=== PATIENT | male | born 1940 | race Caucasian/White ===

== ENCOUNTER 2016-07-18 13:38 | Inpatient (IN) | payer MEDICARE ==
[2016-07-18 14:32] LABS: Hematocrit 31 % (42-52); Hemoglobin 10.4 g/dl (14.0-18.0); Mean Corpuscular HGB Conc 34 g/dl (31-36); Mean Corpuscular Hemoglobin 34 pg (27-31); Mean Corpuscular Volume 100 fL (80-94); Mean Platelet Volume 9 um3 (7.4-10.4); Red Blood Count 3.05 10^6/ul (4.0-5.4); Red Cell Distribution Width 20 % (10.5-15); White Blood Count 3.9 10^3/ul (3.5-10.8)
[2016-07-18 14:41] LABS: Comments Flag Yes
[2016-07-18 14:43] LABS: Add Diff/Slide Review? Slide Review Added
[2016-07-18 14:48] LABS: ALT 77 U/L (7-52); AST 88 U/L (13-39); Albumin 2.3 g/dL (3.2-5.2); Alkaline Phosphatase 165 U/L (34-104); Anion Gap 7 mmol/L (2-11); BUN/Creatinine Ratio 9.3 (8-20); Blood Urea Nitrogen 41 mg/dL (6-24); CO2 Carbon Dioxide 26 mmol/L (22-32); Calcium 8.9 mg/dL (8.6-10.3); Chloride 105 mmol/L (101-111); Creatine Kinase 465 U/L (10-223); EGFR African American 16.9 (>60); EGFR Non-African American 13.1 (>60); Globulin 4.9 g/dL (2-4); Glucose 108 mg/dL (70-100); Magnesium 1.7 mg/dL (1.9-2.7); Potassium 3.3 mmol/L (3.5-5.0); Sodium 138 mmol/L (133-145); Total Protein 7.2 g/dL (6.4-8.9)
[2016-07-18 14:52] LABS: Troponin I 0.13 ng/mL (<0.04)
[2016-07-18] MEDS ORDERED: LORazepam INJ* 2 MG/ML 1 ML VIAL IV PUSH ONE (14:58)
--- NOTE | 2016-07-18 15:05 | RAD ---
INDICATION: Altered mental status COMPARISON: Chest x-ray 2 2009 TECHNIQUE: A seated AP portable view obtained at 1440 hours is submitted. FINDINGS: Bones/Soft Tissues: There are no acute bony findings. Cardiomediastinal: The cardiomediastinal silhouette is normal allowing for depth of inspiration.. Lungs: Expiratory image with vascular crowding. No definite infiltrates.. Pleura: There are no pleural effusions. Other: None IMPRESSION: EXPIRATORY EXAMINATION. NO ACTIVE DISEASE.
[2016-07-18 15:06] LABS: Alcohol < 10 mg/dL (<10)
[2016-07-18 15:08] LABS: Add Path Review? YES; Hypochromasia 1+; Target Cells 2+
--- NOTE | 2016-07-18 15:12 | RAD ---
Indication: Confusion. CT of the brain was performed without IV contrast. Ventricular structures are midline. No midline shift is noted. The extra-axial spaces are unremarkable. There is no evidence of intracranial mass or hemorrhage. No other high or low density lesions are identified. Mastoid air cells and paranasal sinuses are otherwise unremarkable. IMPRESSION: There is no evidence of intracranial mass or hemorrhage noted.
[2016-07-18 15:14] LABS: TSH (Thyroid Stimulating Horm) 1.34 mcIU/mL (0.34-5.60)
[2016-07-18 15:39] LABS: Urine Bilirubin Negative (Negative); Urine Glucose Negative (Negative); Urine Nitrite Negative (Negative)
[2016-07-18] MEDS ORDERED: Magnesium Sulfate 2 GM IV* 2 GM/50 ML BAG IVPB ONE (15:40)
[2016-07-18] MEDS ORDERED: KCL 20 MEQ/100 ML IVPREMIX* 20 MEQ/100 ML BAG IV ONE (15:41)
[2016-07-18] MEDS ORDERED: Potassium Chlor TAB* 20 MEQ TAB.ER PO ONE (15:41)
--- NOTE | 2016-07-18 15:45 | ED ---
Santos Van Adam, scribed for Carlos Hummel MD on 07/18/16 at 1358 . Complex/Multi-Sys Presentation - HPI Summary HPI Summary: Pt is a 76 year old male presenting with lethargy, confusion, and vomiting. The pt's family states that he began having liver problems in January 2016 with worsening lab levels. Yesterday a liver biopsy was done and 4 lbs of fluid were drained from the pt's abdomen. His family states that he has been having worsening edema of his lower extremities and abdomen. Last night the pt began to have nausea and vomiting. This morning his family grew increasingly concerned about the pt's lethargy and weakness, stating that he dropped a can of soda. They also state that he is more confused than usual. His last episode of vomiting was at 11:00. No diarrhea. PMHx includes HTN (controlled lately), skin cancer removal from face, and prostatectomy. Pt is a former smoker. He drinks alcohol occasionally (last on 05/18/16). - History Of Current Complaint Time Seen by Provider: 07/18/16 13:53 Hx Obtained From: Patient, Family/Awning Installer Onset/Duration: Gradual Onset, Lasting Days, Still Present Timing: Constant Severity Currently: Moderate Severity Initially: Moderate Aggravating Factor(s): Unknown Alleviating Factor(s): Nothing Associated Signs And Symptoms: Positive: Confusion, Edema - Lower extremities and abdomen, Nausea, Vomiting, Other - Lethargy - Allergies/Home Medications Allergies/Adverse Reactions: Allergies Allergy/AdvReac Type Severity Reaction Status Date / Time No Known Allergies Allergy Verified 07/17/16 11:19 PMH/Surg Hx/FS Hx/Imm Hx Cardiovascular History: Reports: Hx Hypertension - Cancer History Cancer Type, Location and Year: PROSTATE, SKIN - Surgical History Surgery Procedure, Year, and Place: HERNIA, PROSTATECTOMY - Family History Known Family History: Positive: Hypertension, Other - Cancer - Social History Occupation: Employed Part-time Lives: With Family - Domestic partner female Alcohol Use: Occasionally Hx Tobacco Use: Yes Smoking Status (MU): Former Smoker Review of Systems Positive: Other - Lethargic Positive: Vomiting, Nausea. Negative: Diarrhea Positive: Edema - Lower extremities, abdomen Neurological: Other - Confused All Other Systems Reviewed And Are Negative: Yes Physical Exam - Summary Physical Exam Summary: VITAL SIGNS: Reviewed. GENERAL: Patient is a well developed and nourished male who is lying comfortable in the stretcher. he seems very lethargic an slow answering a question. Patient is not in any acute respiratory distress. HEAD AND FACE: No signs of trauma. No ecchymosis, hematomas or skull depressions. EYES: PERRLA, EOMI x 2, No injected conjunctiva, no nystagmus. No photophobia. EARS: Hearing grossly intact. Ear canals and tympanic membranes are within normal limits. MOUTH: Dry oral mucosa NECK: Supple, trachea is midline, no adenopathy, no JVD, no carotid bruit, no neck hematomas. Positive carotid pulses. CHEST: Symmetric, no tenderness at palpation LUNGS: Clear to auscultation bilaterally. No wheezing or crackles. CVS: Regular rate and rhythm, S1 and S2 present, no murmurs or gallops appreciated. ABDOMEN: Soft, non-tender. No rebound no guarding, and no masses palpated. Bowel sounds are normal. EXTREMITIES: FROM in all major joints, 1+ edema NEURO: Alert but not oriented. . SKIN: Dry and warm Triage Information Reviewed: Yes Vital Signs On Initial Exam: Initial Vitals Temp Pulse Resp BP Pulse Ox 98.5 F 78 18 165/80 95 07/18/16 13:51 07/18/16 13:51 07/18/16 13:51 07/18/16 13:51 07/18/16 13:51 Vital Signs Reviewed: Yes Diagnostics - Vital Signs Vital Signs Temp Pulse Resp BP Pulse Ox 07/18/16 13:51 98.5 F 78 18 165/80 95 - Laboratory Result Diagrams: 07/18/16 14:10 07/18/16 14:10 Lab Statement: Any lab studies that have been ordered have been reviewed, and results considered in the medical decision making process. - Radiology CXR Radiology Interpretation Completed By: Radiologist - IMPRESSION: EXPIRATORY EXAMINATION. NO ACTIVE DISEASE. - CT BRAIN CT Interpretation Completed By: Radiologist - IMPRESSION: There is no evidence of intracranial mass or hemorrhage noted. - EKG 13:45 Cardiac Rate: NL - 77 BPM EKG Rhythm: Sinus Rhythm Ectopy: PVCs - Occasional EKG Interpretation: No STEMI - Additional Comments Diagnostic Additional Comments: Lactic Acid - 2.1 Troponin I - 0.13 Complex Multi-Symp Course/Dx Course Of Treatment: Pt is a 76 year old male presenting with lethargy, confusion, and vomiting. The pt's family states that he began having liver problems in January 2016 with worsening lab levels. Yesterday a liver biopsy was done and 4 lbs of fluid were drained from the pt's abdomen. His family states that he has been having worsening edema of his lower extremities and abdomen. Last night the pt began to have nausea and vomiting. This morning his family grew increasingly concerned about the pt's lethargy and weakness, stating that he dropped a can of soda. They also state that he is more confused than usual. His last episode of vomiting was at 11:00. No diarrhea. PMHx includes HTN (controlled lately), skin cancer removal from face, and prostatectomy. Pt is a former smoker. He drinks alcohol occasionally (last on ). Blood work shows a chronic normochromic normocytic anemia, K+ 3.3, Acute on Chronic RF, Increased LFTs consisting with his liver cirrhosis. Ammonia level 116 possible the cause of the AMS. Troponin is 0.13 and will r/o an ACS. He will be started on Lactulose for his Hepatic Encephalopathy. He will also be given Gentle IV fluids. Patient is becoming agitated therefore he was given Ativan 1 mg IV. CXR impression No active disease. Head CT impression: No acute intracranial pathology. EKG with Sinus rhythm w/o MUNA. I discuss my physical exam, findings and test results with Dr. Atkinson from the hospitalist services and she agrees to admit patient to his services. Patient is hemodynamically stable alert and not oriented. - Diagnoses Differential Diagnoses/HQI/PQRI: Aspiration, CVA, Urinary Tract Infection Provider Diagnoses: Hepatic encephalopathy, Acute on chronic renal insufficiency, Elevated troponin , rule out NSTEMI - Physician Notifications Discussed Care Of Patient With: Dr. Atkinson at 15:10. Patient will be admitted. Discharge - Discharge Plan Condition: Stable Disposition: ADMITTED TO [facility] Referrals: Srinivas Nowak MD [Primary Care Provider] - The documentation as recorded by the Santos awan Adam accurately reflects the service I personally performed and the decisions made by me, Carlos Hummel MD.
[2016-07-18] MEDS ORDERED: Lactulose 300 ML for PR* 10 GM/15 ML BTL PR SCH (17:00)
[2016-07-18] MEDS ORDERED: Lactulose 300 ML for PR* 10 GM/15 ML BTL PR PRN (17:00)
[2016-07-18] MEDS: NS 0.9% 1000 ML* 1,000 ML IV SCH (17:19)
--- NOTE | 2016-07-18 20:28 | HP ---
HISTORY AND PHYSICAL: ADDENDUM: DATE OF ADMISSION: 07/18/16 HISTORY OF PRESENT ILLNESS: Justus Lozano is a 76-year-old male who has recently diagnosed li iam cirrhosis and underwent transjugular liver biopsy performed by Dr. Borja yesterday. Today, the patient presents with altered mental status and he is noted to have hepatic encephalopathy with a m arkedly elevated ammonia level. He also has had nausea and vomiting and he has worsening of his chr onic kidney disease. The patient is going to be admitted with diagnosis of hepatic encephalopathy. He is going to be rehydrated. GI is going to be consulted. Further evaluation of his abdomen and pelvis is going to be performed as well as portal vein Dopplers to rule out portal vein thrombosis. For further details of the patient's presentation and plan, please see history and physical dictate d by Radha Diaz NP, on 07/18/16 with which I agree. [id number]/[facility] [place]: [id number]
--- NOTE | 2016-07-18 20:53 | CONS ---
CONSULTATION REPORT: DATE OF CONSULT: 07/18/16 REASON FOR CONSULT: Confusion, hepatic encephalopathy. NARRATIVE: Mr. Lozano is a 76-year-old gentleman with a remote history of prostate cancer, chronic renal insufficiency and cryptogenic cirrhosis, who in the last 24 hours has had reduced responsiveness, nausea, emesis and inappropriate behavior. The patient was noted to take on weight and had increased abdominal girth in the last several months. He was also noted to have abnormal liver function tests and dark colored urine. He had an evaluation , which included an ultrasound of the liver, which demonstrated a cirrhotic liver but no vascular clot, serologies for hepatitis B and C which were negative , negative ZA but a slightly positive smooth muscle antibody assay. To work up his liver disease, a transjugular liver biopsy was performed yesterday. He initially had about 2 L of acidic fluid removed that was described as yellow but not sent for studies. He then underwent uncomplicated transjugular biopsy. He was observed for a few hours and then discharged. According to his family who I did speak to, he felt well, acted appropriately till late in the night, early this morning when he had several rounds of nausea with emesis that was not bloody or coffee grounds. Today, he has been acting inappropriately, poorly responsive, unable to eat or drink. He, therefore, was brought to the emergency room where he was afebrile but had chemical evidence of hepatic encephalopathy with an ammonia level of 116. Other data include a creatinine of 4.4, which is about his baseline. Lactic acid of 2.1, sodium of 138, INR 2.18, total bilirubin 6.1, which again is about baseline. He is now being admitted. He has no prior history of hepatic encephalopathy. PAST MEDICAL HISTORY: Includes cryptogenic liver disease. Again, a liver biopsy from yesterday is still pending at this time. He has a history of chronic renal insufficiency as well as prostate cancer, which was treated in the past. MEDICATIONS: His medicines are only Bumex, which apparently was started about 2 weeks ago. REVIEW OF SYSTEMS: On review of systems, which was obtained from the patient's significant other, there has been no report of fevers, chills, GI bleeding, melena. According to his significant other, he was given a dose of Versed yesterday. PHYSICAL EXAM: He is a restless gentleman, icteric, poorly responsive. Temperature is 98.5, blood pressure is 165/80, heart rate is 78 and regular. He does have some scant telangiectasias over the face. There is no alvarez erythema. Lungs are clear. Cardiac exam reveals a regular rhythm without murmur. Abdomen is soft. There is a scab over the peritoneal tap site, which does not look infected or draining. The abdomen appears nontender. There is no obvious organomegaly. Extremities reveal 2+ edema. He is able to move all 4 extremities. LABORATORY DATA: Includes a brain CAT scan, which is unremarkable. An attempted CAT scan of the abdomen was unsuccessful due to the patient's motion. IMPRESSION AND PLAN: A 76-year-old gentleman with cryptogenic liver disease being worked up with liver biopsy and a paracentesis yesterday, presenting now with evidence of moderately severe hepatic encephalopathy. It may have been the large volume paracentesis coupled with the introduction of Bumex about a week or two ago that led to some relative dehydration that has precipitated hepatic encephalopathy. Although he just had a liver biopsy yesterday and concern for intraabdominal bleed is there, his baseline hematocrit and his lack of abdominal findings would speak against that. It would certainly be best to get imaging once he is more cooperative. Other possible precipitants would include peritonitis that might have followed a tap. He has no evidence of gastrointestinal bleeding. At this point, he will need lactulose and I would recommend through the NG route if possible. He has been written for lactulose enemas, which would be helpful but not as successful. I would encourage gentle hydration, given his renal insufficiency. Hopefully, we will be able to image his abdomen. If the etiology is unclear, then repeat tap to demonstrate any evidence of spontaneous bacterial peritonitis would be the next step. I will certainly follow the patient during this admission. CC: Dr. Nowak; Dr. Frey* [id number]/[facility] #: [id number] [facility]ICAL CENTERFransisco
[2016-07-18] MEDS: KCL 20 MEQ/100 ML IVPREMIX* 20 MEQ/100 ML BAG IV SCH ×2 (21:19→23:27)
--- NOTE | 2016-07-18 21:44 | HP ---
HISTORY AND PHYSICAL: DATE OF ADMISSION: 07/18/16 PRIMARY CARE PROVIDER: Dr. Srinivas Nowak. ATTENDING PHYSICIAN: Dr. Ava Atkinson* (dictated by Obi Bonner NP). CHIEF COMPLAINT: Altered mental status. HISTORY OF PRESENT ILLNESS: Mr. Oviedo is a 76-year-old male with past medical history significant for cirrhosis from unknown etiology, renal insufficiency, and hypertension, who presents to the emergency room with his family with complaints of lethargy, confusion, and vomiting. The patient is altered and will not answer questions at this time. All information for the history and physical are obtained from the patient's daughter, Kathryn, and significant other, Tyra. It is reported that the patient has been following with GI since complaining of increased fatigue and being found to have cirrhosis. The patient was last seen in June by Dr. Frey with Gastroenterology, who recommended the patient undergo a liver biopsy. At that time, the patient had a MELD score of 34 mostly due to the patient's underlying renal insufficiency. According to the family, the patient's liver issues developed in January of 2016. The patient has been experiencing lower extremity edema and abdominal distention and swelling. They state that the patient's kidney function worsened after receiving radiation therapy last year for prostate cancer. The patient's family reports that until the patient presented for liver biopsy yesterday that he had been acting in his normal state of health, not had any recent fevers, no complaints of chest pain. His only complaints recently have been extreme fatigue, shortness of breath that is worsened with exertion, and being "cold" all of the time. The family reports the patient had 2.2 L of fluid drained from his abdomen yesterday at the time of his liver biopsy. The patient's significant other states that the patient was vomiting all night and then this morning he seemed very lethargic and confused. While sitting in the recliner chair at home, he was incontinent of urine. Based off concern for the patient's change in mental status overnight, the patient was brought to the emergency room for further evaluation of his symptoms. While in the emergency room, the patient received some IV Ativan due to his restlessness. The patient had brain CT showing no acute findings. He had a chest x-ray showing no active disease. The patient had an EKG showing sinus rhythm. The patient had labs that were significant for hypokalemia with potassium of 3.3, hypomagnesium with magnesium of 1.7. The patient was also found to have an elevated troponin of 0.13. The patient's INR is elevated at 2.18, his AST is 88, ALT 77, bilirubin 6.10, alk phos 165, ammonia 116, CK 465. The patient does not have any leukocytosis. Hospitalists were asked to evaluate the patient for admission for hepatic encephalopathy. PAST MEDICAL HISTORY: 1. Cirrhosis, unknown etiology. 2. Renal insufficiency. 3. Hypertension. 4. Basal cell carcinoma on the face. PAST SURGICAL HISTORY: 1. Status post radical prostatectomy in 2002. 2. Status post hernia repairs x2. 3. Status post bilateral knee replacement. 4. Status post excision of basal cell carcinoma on the face. HOME MEDICATIONS: Include: 1. Bumex 1 mg oral daily. 2. Omeprazole 40 mg oral daily. ALLERGIES: No known drug allergies. FAMILY HISTORY: The patient's mother had a history of coronary artery bypass graft and neck tumor. The patient's father had a history of colorectal cancer. Family denies any history of diabetes mellitus. SOCIAL HISTORY: The patient is a former smoker. He quit smoking approximately 40 years ago. The patient used to drink 1 to 2 beers daily but he has not had a drink since . 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 The patient lives with Tyra Fuentes, his significant other, and his daughter, Kathryn, will be his surrogate decision maker in the event he is unable to make decisions for himself. REVIEW OF SYSTEMS: I performed a 14-point review of systems. All the pertinent positives and negatives are mentioned in the history of present illness. The remaining review of systems is negative. PHYSICAL EXAMINATION GENERAL APPEARANCE: The patient is lethargic and disoriented and restless on the stretcher. He does not appear to be in any acute distress. VITAL SIGNS: Temperature 98.5, heart rate 78, respiratory rate 18, O2 sat 95% on 2 L via nasal cannula, blood pressure 165/80. HEENT: Normocephalic, atraumatic. Pupils are equal and reactive to light. Extraocular movements were intact. The patient does have slight bilateral scleral icterus. NECK: Supple. There is no lymphadenopathy noted. RESPIRATORY: There is no accessory muscle use and the lungs are clear to auscultation bilateral. CARDIOVASCULAR: Regular rate and rhythm. S1 and S2 are present. There are no murmurs, rubs, or gallops heard. ABDOMEN: Soft, nontender, nondistended. There are bowel sounds present x4. EXTREMITIES: There is 1 to 2+ bilateral lower extremity edema. DP and PT pulses are 2+ and symmetric. MUSCULOSKELETAL: There is no clubbing or cyanosis noted. NEUROLOGIC: The patient is slightly lethargic and confused. He is able to follow a few commands but is not answering questions at this time. PSYCHOLOGIC: The patient is restless and nonverbal at this time. SKIN: There are no rashes or abnormalities seen. The patient does have some generalized edema to his hips and thighs in addition to his lower extremity edema. The patient has a dressing to his right neck from his liver biopsy yesterday that is clean, dry, and intact with no signs of hematoma at the site. DIAGNOSTIC STUDIES/LAB DATA: Sodium 135, potassium 3.3, chloride 105, CO2 26, BUN 41, creatinine 4.40, glucose 108. White blood cell count 3.9, hemoglobin 10.4, hematocrit 31, and platelet count 74. INR 2.18. Lactic acid 2.1. Troponin 0.13. AST 88, ALT 77, bilirubin 6.10, alk phos 165, ammonia 116, and CK 465. Urinalysis negative. EKG shows sinus rhythm with rate of 77 and few PVCs. This EKG is similar to previous EKG from 04/23/11. Chest x-ray from today. Radiologist's impression: Expiratory exam. No active disease. Brain CT from today. Radiologist's impression: There is no evidence of intracranial mass or hemorrhage noted. IMPRESSION: Mr. Oviedo is a 76-year-old man with past medical history significant for cirrhosis of unknown etiology, renal insufficiency, and hypertension, who presented to the emergency room today with concern for altered mental status. He will be admitted as an inpatient for hepatic encephalopathy. ASSESSMENT AND PLAN: 1. Hepatic encephalopathy. At this time, we will try to get a liver ultrasound to rule out a portal vein thrombosis. We will also check a CT scan of the patient's abdomen to rule out hematoma after his liver biopsy yesterday. The patient's ammonia is elevated. He will receive lactulose. If he is unable to take oral lactulose, we will place a NG tube and give him lactulose via NG tube. I have asked Dr. Man with Gastroenterology to consult on the patient, and he will see him this evening. At this time, infection does not appear to be the cause of the patient's encephalopathy as his urinalysis is negative. His chest x-ray is negative. I will trend the patient's ammonia. 2. Elevated troponin. The patient's troponin is 0.13. He will be placed on telemetry. I will trend his troponins. According to the patient's family, he has not been complaining of any chest pain. I suspect this could be related to demand ischemia. 3. Thrombocytopenia. I suspect the patient's thrombocytopenia is related to the patient's underlying liver disease. 4. Anemia. The patient appears to be at his baseline hemoglobin and hematocrit. 5. Hypomagnesium and hypokalemia. The patient will receive replacement and will recheck his labs in the morning. 6. Cirrhosis. Again, the patient underwent liver biopsy yesterday. He has been following with GI. He had a MELD score of 34. GI will consult on the patient. For now, we will hold on the patient's diuretic as he appears to be little bit on the dehydrated side and will resume accordingly. 7. Acute on chronic renal insufficiency. The patient's creatinine appears to be slightly above what he has been recently. I suspect this is related to dehydration and the patient will receive some IV fluids overnight and I will recheck his creatinine in the morning. 8. Fluids, electrolytes, and nutrition. The patient will be on a low-sodium diet. 9. Code status. Full code. 10. DVT prophylaxis. The patient is at high risk and will receive subcu heparin. 11. Disposition. Inpatient. TIME SPENT: The time for this admission was 60 minutes; 35 minutes was spent face- to-face with the patient and family discussing medications, past medical history, and the events leading up to his arrival today and performing a physical examination. The case has been reviewed with the attending, Dr. Atkinson, who agrees with the plan of care. Reviewed by OBI BONNER, ROBY 07/18/16 [id number] ADDENDUM TO HISTORY AND PHYSICAL: DATE OF ADMISSION: 07/18/16 HISTORY OF PRESENT ILLNESS: Justus Oviedo is a 76-year-old male who has recently diagnosed liver cirrhosis and underwent transjugular liver biopsy performed by Dr. Borja yesterday. Today, the patient presents with altered mental status and he is noted to have hepatic encephalopathy with a markedly elevated ammonia level. He also has had nausea and vomiting and he has worsening of his chronic kidney disease. The patient is going to be admitted with diagnosis of hepatic encephalopathy. He is going to be rehydrated. GI is going to be consulted. Further evaluation of his abdomen and pelvis is going to be performed as well as portal vein Dopplers to rule out portal vein thrombosis. For further details of the patient's presentation and plan, please see history and physical dictated by Obi Bonner NP, on 07/18/16 with which I agree. Ava Atkinson MD CC: Dr. Srinivas Nowak* [id number] #: [id number] #: [id number]
[2016-07-18] MEDS: Heparin VIAL(*) 5000 UNITS/ML VIAL (FIVE THOUSAND) SUBCUT SCH (22:16)
[2016-07-19] MEDS ORDERED: KCL 20 MEQ/100 ML IVPREMIX* 20 MEQ/100 ML BAG ONE (04:00)
[2016-07-19] MEDS: KCL 20 MEQ/100 ML IVPREMIX* 20 MEQ/100 ML BAG IV SCH (04:02)
[2016-07-19] MEDS: Heparin VIAL(*) 5000 UNITS/ML VIAL (FIVE THOUSAND) SUBCUT SCH ×3 (05:18→22:39)
[2016-07-19 06:41] LABS: Hematocrit 27 % (42-52); Hemoglobin 9.2 g/dl (14.0-18.0); Mean Corpuscular HGB Conc 34 g/dl (31-36); Mean Corpuscular Hemoglobin 35 pg (27-31); Mean Corpuscular Volume 101 fL (80-94); Mean Platelet Volume 10 um3 (7.4-10.4); Red Blood Count 2.66 10^6/ul (4.0-5.4); Red Cell Distribution Width 20 % (10.5-15); White Blood Count 4.7 10^3/ul (3.5-10.8)
[2016-07-19 06:45] LABS: Albumin 2.1 g/dL (3.2-5.2); BUN/Creatinine Ratio 9.6 (8-20); EGFR African American 17.9 (>60); EGFR Non-African American 13.9 (>60); Globulin 4.4 g/dL (2-4); Potassium 3.3 mmol/L (3.5-5.0); Total Bilirubin 7.8 mg/dL (0.2-1.0); Total Protein 6.5 g/dL (6.4-8.9)
[2016-07-19 06:54] LABS: Comments Flag Yes
--- NOTE | 2016-07-19 07:51 | PN ---
Subjective Date of Service: 07/19/16 Interval History: Pt is feeling ok but states he could be feeling better. He denies any SOB or chest pain. He denies abdominal pain. He does admit to loose stools. He appears to doze off while I am speaking to him but when asked if he feels sleepy he denies this. Objective Active Medications: Heparin Sodium (Porcine) (Heparin Vial(*)) 5,000 units SUBCUT Q8HR [facility] Last Admin: 07/19/16 05:18 Dose: 5,000 units Sodium Chloride (Ns 0.9% 1000 Ml*) 1,000 mls @ 100 mls/hr IV PER RATE [facility] Last Admin: 07/18/16 17:19 Dose: 100 mls/hr Lactulose (Lactulose*) 30 ml PO Q4H [facility] Last Admin: 07/19/16 05:18 Dose: 30 ml Vital Signs 07/18/16 07/18/16 07/18/16 15:20 15:30 17:15 Temperature 98.7 F Pulse Rate 83 95 Respiratory 13 11 16 Rate Blood Pressure 157/74 152/79 125/72 (mmHg) O2 Sat by Pulse 100 98 Oximetry 07/18/16 07/18/16 07/18/16 18:06 19:50 20:00 Temperature 98.1 F Pulse Rate 83 Respiratory 16 18 18 Rate Blood Pressure 158/83 (mmHg) O2 Sat by Pulse 91 Oximetry 07/18/16 07/19/16 07/19/16 23:59 06:15 07:13 Temperature 99.3 F 98.6 F 98.2 F Pulse Rate 84 94 80 Respiratory 24 16 22 Rate Blood Pressure 149/76 153/84 167/59 (mmHg) O2 Sat by Pulse 100 96 Oximetry 07/19/16 07:43 Temperature Pulse Rate Respiratory Rate Blood Pressure (mmHg) O2 Sat by Pulse 96 Oximetry Oxygen Devices in Use Now: Simple Face Mask - 4L-97% Appearance: Elderly male sitting on the commode, NAD Eyes: - - + icteric sclera Ears/Nose/Mouth/Throat: Mucous Membranes Moist Respiratory: Symmetrical Chest Expansion and Respiratory Effort, Clear to Auscultation Cardiovascular: NL Sounds; No Murmurs; No JVD, RRR, - - R UE puffy appearing but non-pitting, 2+ pitting edema to B/L LE Abdominal: - - BS hyperactive, soft, NT, mildly distended Extremities: No Clubbing, Cyanosis Skin: No Rash or Ulcers, No Nodules or Sclerosis Neurological: - - oriented to being in the hospital, appears sleepy and dozes off but awakens easily to voice Result Diagrams: 07/19/16 05:35 07/19/16 05:35 Assess/Plan/Problems-Billing Mr Oviedo is a 76 yo M who has a 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 - Patient Problems (1) Hepatic encephalopathy Current Visit: Yes Status: Acute Code(s): K72.90 - HEPATIC FAILURE, UNSPECIFIED WITHOUT COMA SNOMED Code(s): 27955399 Comment: The patient's ammonia level is down today but still quite elevated. His mental status seems better now than on admission but still not at baseline. He will continue on lactulose but change to TID. Repeat ammonia level tomorrow AM. Unclear what tipped him over the edge-? gastroenteritis, dehydration, bleed from liver biopsy, SBP. Will get CT abd/pelvis now to eval for bleed and degree of ascites. (2) Chronic kidney disease, stage IV (severe) Current Visit: Yes Status: Acute Code(s): N18.4 - CHRONIC KIDNEY DISEASE, STAGE 4 (SEVERE) SNOMED Code(s): 631495189 Comment: The patient's creatinine has been climbing to a peak yesterday but down slightly today with hydration overnight. Will need to monitor for signs of hepatorenal syndrome. (3) Cryptogenic cirrhosis Current Visit: Yes Status: Acute Code(s): K74.69 - OTHER CIRRHOSIS OF LIVER SNOMED Code(s): 67768427 Comment: Etiology is not clear. He is s/p biopsy 07/17/16-await pathology report. AST/ALT trending down but bilirubin up today. I question if the downward trending LFTs are secondary to the liver burning out. Continue to follow. (4) Elevated troponin Current Visit: Yes Status: Acute Code(s): R74.8 - ABNORMAL LEVELS OF OTHER SERUM ENZYMES SNOMED Code(s): 119000399 Comment: ? demand ischemia. I doubt ACS as the patient denies any chest pain and his EKG is without acute ST-T wave abnormalities. Will get echo this AM but hold off on any further cardiac testing at this time. Additionally the patient has stage IV CKD which may be contributing. (5) Anemia Current Visit: Yes Status: Acute Code(s): D64.9 - ANEMIA, UNSPECIFIED SNOMED Code(s): 642622878 Comment: The patient is chronically anemic with a Hb around 10. Today Hb lower around 9. I suspect the drop in H/H is related to IVF hydration. Will check stool guaiac, iron studies, B12, folate. Monitor H/H. I doubt the drop in H/H is related to bleeding from the liver biopsy. (6) HTN (hypertension) Current Visit: Yes Status: Acute Code(s): I10 - ESSENTIAL (PRIMARY) HYPERTENSION SNOMED Code(s): 13962291 Comment: BP is moderately elevated though I will hold off on starting an antihypertensive as he is not stable and it is unclear how the next 24hr will garcia out. (7) Thrombocytopenia Current Visit: Yes Status: Acute Code(s): D69.6 - THROMBOCYTOPENIA, UNSPECIFIED SNOMED Code(s): 560783149 Comment: Secondary to liver disease. Plt count has been falling but stable between yesterday and today. (8) Hypokalemia Current Visit: Yes Status: Acute Code(s): E87.6 - HYPOKALEMIA SNOMED Code( s): 94897715 Comment: Possibly secondary to GI losses and diuretic losses. Will need to replete. (9) DVT prophylaxis Current Visit: Yes Status: Acute Code(s): HEZ8299 - SNOMED Code(s): 573690231 Comment: SQ heparin (10) Full code status Current Visit: Yes Status: Acute Code(s): Z78.9 - OTHER SPECIFIED HEALTH STATUS SNOMED Code(s): 447167159
[2016-07-19 07:54] LABS: Troponin I 0.11 ng/mL (<0.04)
[2016-07-19] MEDS ORDERED: KCL 20 MEQ/100 ML IVPREMIX* 20 MEQ/100 ML BAG IV ONE (08:16)
[2016-07-19 08:36] LABS: Iron 169 ug/dL (50-212); Total Iron Binding Capacity 176 mcg/dL (250-450); Transferrin 126 mg/dL (203-362)
--- NOTE | 2016-07-19 08:57 | RAD ---
INDICATION: Evaluate for bleed following transjugular liver biopsy COMPARISON: CT June 11, 2016 TECHNIQUE: Noncontrast axial source images were obtained from the hemidiaphragms to the iliac crests. Coronal and sagittal reconstructed images were acquired. Lung bases: There is a small right subpleural effusion which is increased in size. There are To changes in the lung bases mild bibasilar airspace disease, likely atelectasis. Liver: Diminutive, heterogeneous, lobular liver compatible with cirrhosis appearing unchanged. Low-density lesions appearing unchanged and remain most consistent with cysts. Gallbladder: Small amount of sludge versus vicarious excretion of contrast. Spleen: The spleen is normal in size with a maximum diagonal dimension of 11.6 cm. There are no masses. Pancreas: There is no focal pancreatic mass or ductal dilatation. Mild pancreatic atrophy. Adrenal glands: There is no evidence of adrenal mass. Kidneys: Noncontrast CT imaging of the kidneys shows no nephrolithiasis or mass. Adenopathy: There is no evidence of adenopathy by size criteria. Fluid collections: There is moderate ascites with increased ascites. The Hounsfield measurements are water density and are similar to that noted previously suggesting that this is not hemorrhagic. Vessels:There are no significant atherosclerotic changes involving the aorta. There is no focal aneurysm. The iliac vessels are normal in caliber. The IVC appears normal. GI tract: No gross abnormalities of the visualized upper tract on noncontrast imaging. Abdominal soft tissues: Mild diffuse obtaining is edema suggests anasarca. Osseous structures: There are no acute osseous findings. Other: None IMPRESSION: CIRRHOSIS WITH PROGRESSIVE ASCITES.
[2016-07-19 08:58] LABS: Ferritin 955.8 ng/mL (24-336)
[2016-07-19 09:02] LABS: Vitamin B12 > 1450 pg/mL (180-914)
[2016-07-19] MEDS: NS 0.9% 1000 ML* 1,000 ML IV SCH (11:03)
--- NOTE | 2016-07-19 13:36 | ECHO ---
Patient: NARESH FUCHS [facility] Rec#: [id number] : 1940 Date: 07/19/2016 Age: 76y Height: 172.72 cm / 68.0 in Weight: 101.6 kg / 223.9 lbs Sex: M BSA: 2.14 Room#: 437 Admit Date#: 07/18/2016 Type: Inpatient Referring: Joleen العلي DO Reading: Ignacio St MD [employer] Car Loader: Chante [place] CARLOS ALBERTO CC: Srinivas Nowak MD Transthoracic Echocardiogram Indication: ACS/elevated troponins BP: 167/59 HR: 81 Rhythm: NSR with PVCs Findings History: Cirrhosis,renal insuffiency,HTN,lower extremity edema,remote smoking history. Technical Comments: The study quality is fair. Completed at 1245. Left Ventricle: The left ventricular chamber size is normal. Moderate concentric left ventricular hypertrophy is observed. Global left ventricular wall motion and contractility are within normal limits. There is normal left ventricular systolic function. The estimated ejection fraction is 55-60%. Abnormal left ventricular diastolic filling is observed, consistent with impaired relaxation. Left Atrium: The left atrium is mildly dilated. Right Ventricle: The right ventricle is moderately dilated. The right ventricular global systolic function is hyperdynamic. Right Atrium: The right atrium is mildly dilated. Aortic Valve: The aortic valve is trileaflet. There is no evidence of aortic regurgitation. There is no evidence of aortic stenosis. Mitral Valve: The mitral valve leaflets are mildly thickened. There is a trace of mitral regurgitation. Tricuspid Valve: The tricuspid valve leaflets are normal. There is mild to moderate tricuspid regurgitation. There is evidence of moderate pulmonary hypertension. Pulmonic Valve: The pulmonic valve appears normal. There is no evidence of pulmonic regurgitation. There is no pulmonic stenosis. Pericardium: A trivial pericardial effusion is visualized. There are no signs of significant hemodynamic compromise. A left pleural effusion is present.which appears at least small to moderate sized. Aorta: There is no dilatation of the ascending aorta. The aortic arch is not well visualized. There is mild dilatation of the aortic root. Pulmonary Artery: The main pulmonary artery is not well visualized. Venous: The venous system is not well visualized. Conclusions There is normal left ventricular systolic function. The estimated ejection fraction is 55-60%. Global left ventricular wall motion and contractility are within normal limits. The left ventricular chamber size is normal. Moderate concentric left ventricular hypertrophy is observed. Abnormal left ventricular diastolic filling is observed, consistent with impaired relaxation. The left atrium is mildly dilated. The right ventricle is moderately dilated. The right ventricular global systolic function is hyperdynamic. The right atrium is mildly dilated. There is mild to moderate tricuspid regurgitation. There is evidence of moderate pulmonary hypertension. A left pleural effusion is present which appears at least small to moderate sized. There is no prior echocardiogram available to compare with at this time. Measurements Name Value Normal Range RVIDd (AP) 2D 2.9 cm (0.9 - 2.6) RVDdMajor (2D) 5.6 cm (2.2 - 4.4) RAd ISD 4CH 6 cm (3.4 - 4.9) RA (A4C)W 4.6 cm (2.9 - 4.6) IVSd (2D) 1.9 cm (0.6 - 1) LVPWd (2D) 1.4 cm (0.6 - 1) LVIDd (2D) 4.1 cm (3.6 - 5.4) LVIDs (2D) 3.3 cm - LV FS (2D) 20 % (25 - 45) Aortic Annulus 2.2 cm (1.4 - 2.6) Ao root diameter (2D) 3.8 cm (2.1 - 3.5) Ascending Ao 3.4 cm (2.1 - 3.4) LA dimension (AP) 2D 4.3 cm (2.3 - 3.8) LAd ISD 4CH 5.5 cm (2.9 - 5.3) LA ISD 4CH W 3.8 cm (2.5 - 4.5) Name Value Normal Range LA ESV SP 4CH (A/L) 64.13 ml - LA ESV SP 2CH (A/L) 55.32 ml - LA ESV BP (A/L) 63.71 ml - LA ESV SP 4CH (MOD) 53.73 ml - LA ESV SP 2CH (MOD) 52.64 ml - Name Value Normal Range MV E-wave Vmax 0.9 m/sec - MV deceleration time 274 msec - MV A-wave Vmax 1.4 m/sec - MV E:A ratio 0.62 ratio - LV septal e' Vmax 0.05 m/sec - LV lateral e' Vmax 0.09 m/sec - LV E:e' septal ratio 18 ratio - LV E:e' lateral ratio 10 ratio - Name Value Normal Range AV Vmax 1.7 m/sec - AV VTI 33.5 cm - AV peak gradient 11.67 mmHg - AV mean gradient 6.34 mmHg - LVOT Vmax 1.1 m/sec - LVOT VTI 26 cm - LVOT peak gradient 4.64 mmHg - LVOT mean gradient 2.12 mmHg - Name Value Normal Range TR Vmax 3.3 m/sec - TR peak gradient 44 mmHg - RAP 8 mmHg - RVSP 52 mmHg - Name Value Normal Range PV Vmax 1.2 m/sec - PV peak gradient 5.43 mmHg -
[2016-07-19] MEDS ORDERED: traMADol TAB* 50 MG PO PRN (15:51)
[2016-07-19] MEDS: amLODIPine TAB* 5 MG PO SCH (16:55)
--- NOTE | 2016-07-19 17:14 | PN ---
Subjective - Subjective Subjective: Date of Service: 07/19/16 Patient was seen and examined at bedside at approximately 0830 hours. Denies pain. Not currently nauseous. Patient appears jaundice NAD Slow to respond to questions, but responsive Right IJ venotomy is soft, nontender, dressing is CDI 2+ carotid pulses, No suspicious bruit heard over right carotid Abdomen is soft and nontender Ammonia level 116 upon ER arrival, now [age] YOM with hepatic cirrhosis and hepatorenal syndrome admitted to hospital with AMS and emesis POD # 1 transjugular liver biopsy and paracentesis. Plan: 1. Potential etiologies include hepatic encephalopathy due to elevated ammonia, perhaps exacerbated by rapid fluid shift post paracentesis. 2. Liver and kidney labs are deranged, but are not far from recent baseline. 3. No clinical findings or review of biopsy images indicate complication from transjugular liver biopsy including access site complication or hepatic bleed. Weight: 224 lb Medication Orders: Current Medications Amlodipine Besylate (Norvasc Tab*) 5 mg PO DAILY [facility] Last Admin: 07/19/16 16:55 Dose: 5 mg Heparin Sodium (Porcine) (Heparin Vial(*)) 5,000 units SUBCUT Q12H [facility] Last Admin: 07/19/16 09:58 Dose: 5,000 units Sodium Chloride (Ns 0.9% 1000 Ml*) 1,000 mls @ 100 mls/hr IV PER RATE [facility] Last Admin: 07/19/16 11:03 Dose: 100 mls/hr Lactulose (Lactulose*) 30 ml PO TID [facility] Last Admin: 07/19/16 15:22 Dose: 30 ml Tramadol HCl (Ultram*) 50 mg PO Q12H PRN PRN Reason: PAIN Home Medications: Home Medications Medication Instructions Recorded Confirmed Type Bumetanide TAB* [Bumex TAB*] 1 mg PO DAILY 07/17/16 07/18/16 History Omeprazole [Omeprazole 40 MG] 40 mg PO DAILY 07/18/16 07/18/16 History Results/Investigations Lab Results: 07/18/16 07/18/16 07/18/16 15:25 20:10 20:10 WBC RBC Hgb Hct MCV MCH MCHC RDW Plt Count MPV Neut % (Auto) Lymph % (Auto) [place] % (Auto) Eos % (Auto) Baso % (Auto) Absolute Neuts (auto) Absolute Lymphs (auto) Absolute Monos (auto) Absolute Eos (auto) Absolute Basos (auto) Absolute Nucleated RBC Nucleated RBC % Sodium Potassium Chloride Carbon Dioxide Anion Gap BUN Creatinine Est GFR ( Amer) Est GFR (Non-Af Amer) BUN/Creatinine Ratio Glucose Lactic Acid 2.4 H* Calcium Total Bilirubin AST ALT Alkaline Phosphatase Ammonia Troponin I 0.12 H* Total Protein Albumin Globulin Albumin/Globulin Ratio Urine Color Yellow Urine Appearance Clear Urine pH 6.0 Ur Specific [place] 1.017 Urine Protein Negative Urine Ketones Negative Urine Blood Negative Urine Nitrate Negative Urine Bilirubin Negative Urine Urobilinogen Negative Ur Leukocyte Esterase Negative Urine Glucose Negative 07/19/16 07/19/16 07/19/16 00:40 05:35 05:35 WBC RBC Hgb Hct MCV MCH MCHC RDW Plt Count MPV Neut % (Auto) Lymph % (Auto) Hutch[place] % (Auto) Eos % (Auto) Baso % (Auto) Absolute Neuts (auto) Absolute Lymphs (auto) Absolute Monos (auto) Absolute Eos (auto) Absolute Basos (auto) Absolute Nucleated RBC Nucleated RBC % Sodium 141 Potassium 3.3 L Chloride 108 Carbon Dioxide 25 Anion Gap 8 BUN 40 H Creatinine 4.18 H Est GFR ( Amer) 17.9 Est GFR (Non-Af Amer) 13.9 BUN/Creatinine Ratio 9.6 Glucose 99 Lactic Acid Calcium 9.0 Total Bilirubin 7.80 H D AST 83 H ALT 70 H Alkaline Phosphatase 106 H Ammonia 72 H Troponin I 0.12 H* 0.11 H* Total Protein 6.5 Albumin 2.1 L Globulin 4.4 H Albumin/Globulin Ratio 0.5 L Urine Color Urine Appearance Urine pH Ur Specific [place] Urine Protein Urine Ketones Urine Blood Urine Nitrate Urine Bilirubin Urine Urobilinogen Ur Leukocyte Esterase Urine Glucose 07/19/16 07/19/16 05:35 05:35 WBC 4.7 RBC 2.66 L Hgb 9.2 L Hct 27 L MCV 101 H MCH 35 H MCHC 34 RDW 20 H Plt Count 76 L MPV 10 Neut % (Auto) 61.7 Lymph % (Auto) 14.8 L Hutchinson % (Auto) 16.1 H Eos % (Auto) 6.2 H Baso % (Auto) 1.2 Absolute Neuts (auto) 2.9 Absolute Lymphs (auto) 0.7 L Absolute Monos (auto) 0.7 Absolute Eos (auto) 0.3 Absolute Basos (auto) 0.1 Absolute Nucleated RBC 0.01 Nucleated RBC % 0.2 Sodium Potassium Chloride Carbon Dioxide Anion Gap BUN Creatinine Est GFR ( Amer) Est GFR (Non-Af Amer) BUN/Creatinine Ratio Glucose Lactic Acid 2.4 H* Calcium Total Bilirubin AST ALT Alkaline Phosphatase Ammonia Troponin I Total Protein Albumin Globulin Albumin/Globulin Ratio Urine Color Urine Appearance Urine pH Ur Specific [place] Urine Protein Urine Ketones Urine Blood Urine Nitrate Urine Bilirubin Urine Urobilinogen Ur Leukocyte Esterase Urine Glucose Vitals Vital Signs: Vital Signs 07/18/16 07/18/16 07/18/16 17:15 18:06 19:50 Temperature 98.7 F 98.1 F Pulse Rate 95 83 Respiratory 16 16 18 Rate Blood Pressure 125/72 158/83 (mmHg) O2 Sat by Pulse 98 91 Oximetry 07/18/16 07/18/16 07/19/16 20:00 23:59 06:15 Temperature 99.3 F 98.6 F Pulse Rate 84 94 Respiratory 18 24 16 Rate Blood Pressure 149/76 153/84 (mmHg) O2 Sat by Pulse 100 96 Oximetry 07/19/16 07/19/16 07/19/16 07:13 07:43 08:00 Temperature 98.2 F Pulse Rate 80 Respiratory 22 22 Rate Blood Pressure 167/59 (mmHg) O2 Sat by Pulse 96 Oximetry 07/19/16 07/19/16 07/19/16 11:03 11:04 15:50 Temperature 98.1 F 97.6 F Pulse Rate 79 73 Respiratory 26 17 Rate Blood Pressure 149/87 180/73 (mmHg) O2 Sat by Pulse 98 99 Oximetry Patient Problems: Patient Problems Problem Status Onset Code Anemia Acute D64.9 Chronic kidney disease, stage IV (severe) Acute N18.4 Cryptogenic cirrhosis Acute K74.69 DVT prophylaxis Acute [id number] Elevated troponin Acute R74.8 Full code status Acute Z78.9 HTN (hypertension) Acute I10 Hepatic encephalopathy Acute K72.90 Hypokalemia Acute E87.6 Thrombocytopenia Acute D69.6
[2016-07-20] MEDS ORDERED: NS 0.9% 250 ML* 250 ML IV ONE (01:05)
[2016-07-20 05:29] LABS: Hematocrit 25 % (42-52); Hemoglobin 8.5 g/dl (14.0-18.0); Mean Corpuscular HGB Conc 34 g/dl (31-36); Mean Corpuscular Hemoglobin 35 pg (27-31); Mean Corpuscular Volume 102 fL (80-94); Mean Platelet Volume 9 um3 (7.4-10.4); Red Blood Count 2.42 10^6/ul (4.0-5.4); Red Cell Distribution Width 20 % (10.5-15); White Blood Count 4.5 10^3/ul (3.5-10.8)
[2016-07-20 05:32] LABS: Comments Flag Yes
[2016-07-20 05:45] LABS: BUN/Creatinine Ratio 8.9 (8-20); Calcium 8.7 mg/dL (8.6-10.3); EGFR African American 19.1 (>60); EGFR Non-African American 14.8 (>60); Potassium 3.4 mmol/L (3.5-5.0)
[2016-07-20] MEDS: amLODIPine TAB* 5 MG PO SCH (08:49)
[2016-07-20] MEDS: Heparin VIAL(*) 5000 UNITS/ML VIAL (FIVE THOUSAND) SUBCUT SCH ×2 (08:50→21:18)
--- NOTE | 2016-07-20 12:26 | PN ---
Subjective Date of Service: 07/20/16 Interval History: Pt is doing much better per his family. He has been alert and oriented. Currently he is sleeping. He awakens to voice and denies pain but does not communicate other than grunting no. Objective Active Medications: Amlodipine Besylate (Norvasc Tab*) 5 mg PO DAILY [facility] Last Admin: 07/20/16 08:49 Dose: 5 mg Furosemide (Lasix Tab*) 40 mg PO DAILY [facility] Heparin Sodium (Porcine) (Heparin Vial(*)) 5,000 units SUBCUT Q12H [facility] Last Admin: 07/20/16 08:50 Dose: 5,000 units Lactulose (Lactulose*) 30 ml PO TID [facility] Last Admin: 07/20/16 08:49 Dose: 30 ml Potassium Chloride (Klor Con Er Tab*) 40 meq PO Q4H [facility] Stop: 07/20/16 16:01 Spironolactone (Aldactone Tab*) 25 mg PO DAILY [facility] Tramadol HCl (Ultram*) 50 mg PO Q12H PRN PRN Reason: PAIN Vital Signs 07/19/16 07/19/16 07/19/16 15:50 20:00 22:50 Temperature 97.6 F 98.1 F Pulse Rate 73 85 Respiratory 17 17 18 Rate Blood Pressure 180/73 158/71 (mmHg) O2 Sat by Pulse 99 98 Oximetry 07/20/16 07/20/16 07/20/16 03:09 07:44 08:00 Temperature 99.7 F 97.9 F Pulse Rate 80 83 Respiratory 16 16 18 Rate Blood Pressure 158/72 151/72 (mmHg) O2 Sat by Pulse 98 98 Oximetry 07/20/16 11:00 Temperature 99.1 F Pulse Rate 79 Respiratory 16 Rate Blood Pressure 146/74 (mmHg) O2 Sat by Pulse 96 Oximetry Oxygen Devices in Use Now: Nasal Cannula - 96%-3L Appearance: Elderly male sleeping in a recliner, awakens to voice, NAD Eyes: - - + icteric sclera Ears/Nose/Mouth/Throat: Mucous Membranes Moist Respiratory: Symmetrical Chest Expansion and Respiratory Effort, Clear to Auscultation - anteriorly and lateral bases Cardiovascular: NL Sounds; No Murmurs; No JVD, RRR, - - 2-3+ B/L LE edema Abdominal: - - BS+ soft, NT, moderately distended Extremities: No Clubbing, Cyanosis Skin: No Rash or Ulcers, No Nodules or Sclerosis Neurological: - - sleepy but arousable Result Diagrams: 07/20/16 05:08 07/20/16 05:08 Microbiology and Other Data: Microbiology 07/18/16 20:10 Aerobic Blood Culture - Preliminary Blood Venous No Growth Day 1 07/18/16 15:45 Aerobic Blood Culture - Preliminary Blood Venous No Growth Day 1 Anaerobic Blood Culture - Preliminary No Growth Day 1 Assess/Plan/Problems-Billing Mr Oviedo is a 76 yo M who has a 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 - Patient Problems (1) Hepatic encephalopathy Current Visit: Yes Status: Acute Code(s): K72.90 - HEPATIC FAILURE, UNSPECIFIED WITHOUT COMA SNOMED Code(s): 59469674 Comment: Reportedly improved per nursing. I did not wake the patient at the time of my visit this AM. COntinue lactulose to achieve 3-4 loose BMs/day. Likely dehydration related to the initiation of the diuretic and paracentesis led to his decompensation. Repeat blood work tomorrow. Up and walking today. (2) Chronic kidney disease, stage IV (severe) Current Visit: Yes Status: Acute Code(s): N18.4 - CHRONIC KIDNEY DISEASE, STAGE 4 (SEVERE) SNOMED Code(s): 972799458 Comment: Creatinine is slightly better today after hydration. I am going to start diuretic therapy with lasix 40mg daily and spironolactone 25mg daily. Will need to monitor his renal function. (3) Cryptogenic cirrhosis Current Visit: Yes Status: Acute Code(s): K74.69 - OTHER CIRRHOSIS OF LIVER SNOMED Code(s): 07450413 Comment: Biopsy samples are being sent to [facility]. No signs of hepatosteatosis. Follow up up LFTs tomorrow. (4) Elevated troponin Current Visit: Yes Status: Acute Code(s): R74.8 - ABNORMAL LEVELS OF OTHER SERUM ENZYMES SNOMED Code(s): 093265219 Comment: Echo shows normal EF and wall motion. No further work up. (5) Anemia Current Visit: Yes Status: Acute Code(s): D64.9 - ANEMIA, UNSPECIFIED SNOMED Code(s): 548698017 Comment: H/H down further today but still likely dilutional. Follow up H/H tomorrow AM. (6) HTN (hypertension) Current Visit: Yes Status: Acute Code(s): I10 - ESSENTIAL (PRIMARY) HYPERTENSION SNOMED Code(s): 88351823 Comment: BP remains moderately elevated despite starting amlodipine yesterday. Monitor today and if needed can adjust dose tomorrow. (7) Thrombocytopenia Current Visit: Yes Status: Acute Code(s): D69.6 - THROMBOCYTOPENIA, UNSPECIFIED SNOMED Code(s): 183780861 Comment: Plt down some today-continue to follow. (8) Hypokalemia Current Visit: Yes Status: Acute Code(s): E87.6 - HYPOKALEMIA SNOMED Code( s): 34325090 Comment: Replete as needed. (9) DVT prophylaxis Current Visit: Yes Status: Acute Code(s): DZD4102 - SNOMED Code(s): 741028915 Comment: SQ heparin (10) Full code status Current Visit: Yes Status: Acute Code(s): Z78.9 - OTHER SPECIFIED HEALTH STATUS SNOMED Code(s): 812003069
[2016-07-20] MEDS: Potassium Chlor TAB* 20 MEQ TAB.ER PO SCH ×2 (13:15→16:34)
[2016-07-20] MEDS: Furosemide TAB* 40 MG PO SCH (13:15)
[2016-07-20] MEDS: Spironolactone TAB* 25 MG PO SCH (13:15)
[2016-07-21 06:50] LABS: Hematocrit 25 % (42-52); Hemoglobin 8.5 g/dl (14.0-18.0); Mean Corpuscular HGB Conc 34 g/dl (31-36); Mean Corpuscular Hemoglobin 35 pg (27-31); Mean Corpuscular Volume 104 fL (80-94); Mean Platelet Volume 9 um3 (7.4-10.4); Red Blood Count 2.39 10^6/ul (4.0-5.4); Red Cell Distribution Width 19 % (10.5-15); White Blood Count 4.8 10^3/ul (3.5-10.8)
[2016-07-21 07:06] LABS: Albumin 1.8 g/dL (3.2-5.2); BUN/Creatinine Ratio 8.6 (8-20); Calcium 8.7 mg/dL (8.6-10.3); EGFR African American 18.6 (>60); EGFR Non-African American 14.4 (>60); Globulin 4.2 g/dL (2-4); Total Bilirubin 6.5 mg/dL (0.2-1.0)
[2016-07-21 07:08] LABS: Comments Flag Yes
[2016-07-21] MEDS: Spironolactone TAB* 25 MG PO SCH (08:41)
[2016-07-21] MEDS: amLODIPine TAB* 5 MG PO SCH (08:41)
[2016-07-21] MEDS: Furosemide TAB* 40 MG PO SCH (08:42)
[2016-07-21] MEDS: Heparin VIAL(*) 5000 UNITS/ML VIAL (FIVE THOUSAND) SUBCUT SCH (08:42)
--- NOTE | 2016-07-21 11:56 | PN ---
Subjective Date of Service: 07/21/16 Interval History: Pt is feeling well. He would like to go home. He denies any pain. He denies SOB. He does not like the lactulose and questions why he needs to continue to take it. He agrees to taking the lactulose after a long discussion. Objective Active Medications: Amlodipine Besylate (Norvasc Tab*) 5 mg PO DAILY [facility] Last Admin: 07/21/16 08:41 Dose: 5 mg Furosemide (Lasix Tab*) 40 mg PO DAILY [facility] Last Admin: 07/21/16 08:42 Dose: 40 mg Heparin Sodium (Porcine) (Heparin Vial(*)) 5,000 units SUBCUT Q12H [facility] Last Admin: 07/21/16 08:42 Dose: 5,000 units Lactulose (Lactulose*) 30 ml PO TID [facility] Last Admin: 07/21/16 08:42 Dose: 30 ml Spironolactone (Aldactone Tab*) 25 mg PO DAILY [facility] Last Admin: 07/21/16 08:41 Dose: 25 mg Tramadol HCl (Ultram*) 50 mg PO Q12H PRN PRN Reason: PAIN Vital Signs 07/20/16 07/20/16 07/20/16 16:12 20:00 20:19 Temperature 97.5 F 98.1 F Pulse Rate 75 81 Respiratory 20 18 20 Rate Blood Pressure 151/78 155/62 (mmHg) O2 Sat by Pulse 99 98 Oximetry 07/20/16 07/21/16 07/21/16 21:15 00:21 04:08 Temperature 99.1 F 97.5 F Pulse Rate 74 81 103 Respiratory 20 16 Rate Blood Pressure 148/65 134/64 (mmHg) O2 Sat by Pulse 94 96 97 Oximetry 07/21/16 07/21/16 07:48 08:00 Temperature 99.1 F Pulse Rate 79 Respiratory 16 16 Rate Blood Pressure 133/55 (mmHg) O2 Sat by Pulse 93 Oximetry Oxygen Devices in Use Now: None Appearance: Jaundiced elderly male sitting up in bed sleeping, awakens to voice , NAD Eyes: - - + icteric sclera Ears/Nose/Mouth/Throat: Mucous Membranes Moist Respiratory: Symmetrical Chest Expansion and Respiratory Effort, Clear to Auscultation - few bibasilar crackles Cardiovascular: NL Sounds; No Murmurs; No JVD, RRR, - - 1+ LE edema bilaterally Abdominal: - - BS+ soft, NT, moderately distended Extremities: No Clubbing, Cyanosis Skin: No Rash or Ulcers, No Nodules or Sclerosis Neurological: Alert and Oriented x 3 Result Diagrams: 07/21/16 06:30 07/21/16 06:30 Microbiology and Other Data: Microbiology 07/18/16 20:10 Aerobic Blood Culture - Preliminary Blood Venous No Growth Day 1 07/18/16 15:45 Aerobic Blood Culture - Preliminary Blood Venous No Growth Day 1 Anaerobic Blood Culture - Preliminary No Growth Day 1 Assess/Plan/Problems-Billing Mr Oviedo is a 76 yo M who has a 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 - Patient Problems (1) Hepatic encephalopathy Current Visit: Yes Status: Acute Code(s): K72.90 - HEPATIC FAILURE, UNSPECIFIED WITHOUT COMA SNOMED Code(s): 46447550 Comment: Pt is much better today. His mental status is clear. Continue lactulose. We discussed the need to remain on this medication and he agrees. His and children will help encourage him to take the medication. Follow up with Dr. Nowak later this week and with GI-he has been referred to hepatology in [place]. (2) Chronic kidney disease, stage IV (severe) Current Visit: Yes Status: Acute Code(s): N18.4 - CHRONIC KIDNEY DISEASE, STAGE 4 (SEVERE) SNOMED Code(s): 363802486 Comment: Creatinine is essentially stable today. Continue to monitor. Follow up labs 07/24/16. Reduce lasix to 20mg daily and continue spironolactone 25mg daily. (3) Cryptogenic cirrhosis Current Visit: Yes Status: Acute Code(s): K74.69 - OTHER CIRRHOSIS OF LIVER SNOMED Code(s): 43088564 Comment: Biopsy samples are being sent to [facility]. No signs of hepatosteatosis. LFTs continue to trend down. (4) Elevated troponin Current Visit: Yes Status: Acute Code(s): R74.8 - ABNORMAL LEVELS OF OTHER SERUM ENZYMES SNOMED Code(s): 582800321 Comment: Echo shows normal EF and wall motion. No further work up. (5) Anemia Current Visit: Yes Status: Acute Code(s): D64.9 - ANEMIA, UNSPECIFIED SNOMED Code(s): 051401807 Comment: H/H is stable. Follow as outpatient. (6) HTN (hypertension) Current Visit: Yes Status: Acute Code(s): I10 - ESSENTIAL (PRIMARY) HYPERTENSION SNOMED Code(s): 55078522 Comment: BP is under fair control. Continue amlodipine 5mg daily. (7) Thrombocytopenia Current Visit: Yes Status: Acute Code(s): D69.6 - THROMBOCYTOPENIA, UNSPECIFIED SNOMED Code(s): 800132942 Comment: Plt are stable. Continue to monitor. (8) Hypokalemia Current Visit: Yes Status: Acute Code(s): E87.6 - HYPOKALEMIA SNOMED Code( s): 59519265 Comment: Follow up BMP 07/24/16. (9) DVT prophylaxis Current Visit: Yes Status: Acute Code(s): DAC7301 - SNOMED Code(s): 197924848 Comment: SQ heparin (10) Full code status Current Visit: Yes Status: Acute Code(s): Z78.9 - OTHER SPECIFIED HEALTH STATUS SNOMED Code(s): 812077385 Status and Disposition: d/c home
[2016-07-21] MEDS ORDERED: Furosemide TAB* 20 MG PO SCH (11:57)
[2016-07-21 12:44] VITALS: BP 138/71
--- NOTE | 2016-07-23 08:56 | DS ---
DISCHARGE SUMMARY: DATE OF ADMISSION: 07/18/16 DATE OF DISCHARGE: 07/21/16 PRIMARY CARE PROVIDER: Dr. Nowak. VENEER GRADER: Dr. Frey. PRINCIPAL DIAGNOSIS: Hepatic encephalopathy. SECONDARY DIAGNOSES: 1. Liver cirrhosis secondary to unclear etiology. 2. Lower extremity edema. 3. Hypertension. DISCHARGE MEDICATIONS: 1. Omeprazole 40 mg p.o. daily. 2. Amlodipine 5 mg p.o. daily (new). 3. Spironolactone 25 mg p.o. daily (new). 4. Lactulose 30 mL p.o. t.i.d. (new). 5. Lasix 20 mg p.o. daily (new). Discontinued Medications: Bumex. HOSPITAL COURSE: Mr. Oviedo is a 76-year-old male who presented to the emergency room on 07/18/16 with complaints of altered mental status. The patient's family noted that he was very lethargic, confused, and was also vomiting. The patient was found to have an elevated ammonia level of 116 on presentation to the emergency room. The cause of the patient's liver failure is unclear. In fact, the patient underwent liver biopsy on 07/17/16 via transjugular approach with Dr. Broja. At the time of that procedure, the patient also underwent approximately 2.5 liters to 3 liters paracentesis. Approximately 1 to 2 weeks prior to this procedure, the patient was started on Bumex for the development of significant ascites and lower extremity edema. It was felt after the patient presented to the emergency room that likely he decompensated related to dehydration. The patient was hydrated and started on lactulose. With this the patient's mental status markedly improved. The patient did undergo CT of the abdomen and pelvis to rule out bleeding related to his biopsy. Only cirrhosis with progressive ascites was noted. Dr. Man consulted and agreed with the theory that the patient decompensated related to dehydration. The patient has been stressed the importance of staying on lactulose to maintain adequate mental status. The patient did appear to need some diuretic therapy, therefore, he was started on Lasix and spironolactone. He will need very close monitoring of his electrolytes, and therefore, an ammonia level and CMP were ordered for 07/24/16. On presentation, the patient was also found to have a mildly elevated troponin of 0.13. This trended down slightly. I suspect the elevated troponin is related to possibly demand ischemia in the setting of his known stage 4 chronic kidney disease. The patient's creatinine has been escalating over the last few months. His creatinine was elevated to 4.4 on presentation and trended down to 3.95 as a low and back up to 4.05 on the day of discharge. The patient will need very close monitoring of his renal function as well. The patient's hemoglobin fell during the course of the hospitalization; however , remained stable between the last 2 days it was checked. I suspect this may be somewhat dilutional. His platelet count also trended down slightly though was relatively stable with a platelet count of 68,000 on the day of discharge. The patient is being followed by Dr. Frey who has also referred the patient to [facility] for evaluation of possible transplant. He will have very close monitoring of his clinical status as well as his lab work over the next several weeks. It also became clear during the course of the hospitalization, that the patient was requiring control of his blood pressure which was moderately to markedly elevated. He was started on amlodipine 5 mg p.o. daily. With this, his blood pressure was improved, though likely not at goal. However, I would rather have the patient run slightly high than low due to risks of falling. FOLLOWUP CONCERNS: The patient is being discharged home today, 07/21/16. He is to follow up with Dr. Nowak in the next 4 to 7 days. ACTIVITY: Activity level is as tolerated. DIET: Regular. CONDITION ON DISCHARGE: Stable. TIME SPENT: 35 minutes was spent discharging this patient. CC: Dr. Nowak; Dr. Frey * [id number]/[facility] #: [id number] [facility]
== END 2016-07-21 13:40 | disposition home or self-care (01) | DRG 442 ==
LOC: ED 13:38 → MEDTELE 15:12
PROVIDERS: ADMIT Internal Medicine; ATTEND Hospitalist
DX: K72.90 Hepatic failure, unspecified without coma (principal); N17.9 Acute kidney failure, unspecified; N18.4 Chronic kidney disease, stage 4 (severe); R18.8 Other ascites; D69.59 Other secondary thrombocytopenia; D64.9 Anemia, unspecified; E83.42 Hypomagnesemia; E86.0 Dehydration; K74.60 Unspecified cirrhosis of liver; I12.9 Hypertensive chronic kidney disease with stage 1 through stage 4 chronic kidney disease, or unspecified chronic kidney disease; E87.6 Hypokalemia; Z96.653 Presence of artificial knee joint, bilateral; Z85.828 Personal history of other malignant neoplasm of skin; Z79.899 Other long term (current) drug therapy; Z82.49 Family history of ischemic heart disease and other diseases of the circulatory system; Z80.0 Family history of malignant neoplasm of digestive organs; Z87.891 Personal history of nicotine dependence; Z85.46 Personal history of malignant neoplasm of prostate
CPT/HCPCS: 36415; 70450; 71010; 74150; 80048; 80053; 80320; 81003; 82140; 82550; 82607; 82728; 82746; 83540; 83550; 83605; 83735; 84300; 84443; 84484; 85025; 85027; 85060; 85610; 87040; 93005; 93306; A9270-GY; G0480; J1644; J2060; J3475; J3480

== ENCOUNTER 2016-07-24 14:35 | Inpatient (IN) | payer MEDICARE ==
[2016-07-24] MEDS ORDERED: NS 0.9% 1000 ML* 1,000 ML IV ONE (15:21)
[2016-07-24 16:41] LABS: Hematocrit 29 % (42-52); Hemoglobin 9.8 g/dl (14.0-18.0); Mean Corpuscular HGB Conc 34 g/dl (31-36); Mean Corpuscular Hemoglobin 35 pg (27-31); Mean Corpuscular Volume 102 fL (80-94); Mean Platelet Volume 9 um3 (7.4-10.4); Red Blood Count 2.81 10^6/ul (4.0-5.4); Red Cell Distribution Width 19 % (10.5-15); White Blood Count 3.3 10^3/ul (3.5-10.8)
[2016-07-24 16:48] LABS: Add Diff/Slide Review? Slide Review Added; Comments Flag Yes
[2016-07-24 17:00] LABS: Troponin I 0.05 ng/mL (<0.04)
[2016-07-24 17:04] LABS: ALT 55 U/L (7-52); AST 64 U/L (13-39); Albumin 2.1 g/dL (3.2-5.2); Alkaline Phosphatase 138 U/L (34-104); Anion Gap 4 mmol/L (2-11); Blood Urea Nitrogen 35 mg/dL (6-24); CO2 Carbon Dioxide 24 mmol/L (22-32); Calcium 9.1 mg/dL (8.6-10.3); Chloride 105 mmol/L (101-111); EGFR African American 16.9 (>60); EGFR Non-African American 13.1 (>60); Globulin 4.8 g/dL (2-4); Glucose 111 mg/dL (70-100); Potassium 4.2 mmol/L (3.5-5.0); Sodium 133 mmol/L (133-145); Total Protein 6.9 g/dL (6.4-8.9)
[2016-07-24 17:14] LABS: Alcohol < 10 mg/dL (<10)
[2016-07-24] MEDS ORDERED: traMADol TAB* 50 MG PO ONE (17:52)
[2016-07-24 18:29] LABS: Urine Bilirubin Negative (Negative); Urine Glucose Negative (Negative); Urine Nitrite Negative (Negative)
[2016-07-24] MEDS: LACTULOSE* 30 ML UDC PO SCH (19:40)
[2016-07-24] MEDS ORDERED: Metoprolol Tartrate TAB* 25 MG PO ONE (19:43)
[2016-07-24] MEDS ORDERED: cefoTAXime(*) 2,000 MG in NS 0.9% 50 ML* 50 ML IVPB SCH (20:00)
[2016-07-24] MEDS ORDERED: Cefepime 1 GM IV - ED ONCE IVPB ONE ×2 (20:00)
--- NOTE | 2016-07-24 20:14 | RAD ---
INDICATION: Hepatic encephalopathy. Pneumonia. COMPARISON: Chest x-ray July 18, 2016 TECHNIQUE: An AP portable view obtained at 1936 hours is submitted. FINDINGS: Bones/Soft Tissues: There are no acute bony findings. Cardiomediastinal: The cardiomediastinal silhouette is normal. Lungs: There are no infiltrates. The examination is expiratory with vascular crowding Pleura: There are suspected small bilateral pleural effusions. Other: None IMPRESSION: EXPIRATORY EXAMINATION. NO ACUTE INFILTRATES. SUSPECT SMALL BILATERAL EFFUSIONS
[2016-07-24] MEDS ORDERED: LACTULOSE* 30 ML UDC PO SCH (21:00)
[2016-07-24] MEDS ORDERED: RiFAXimin* 550 MG TAB PO SCH (21:00)
[2016-07-24] MEDS: RiFAXimin* 550 MG TAB PO SCH (21:20)
[2016-07-24] MEDS ORDERED: Heparin VIAL(*) 5000 UNITS/ML VIAL (FIVE THOUSAND) SUBCUT SCH (22:00)
--- NOTE | 2016-07-25 00:29 | HP ---
HOSPITAL MEDICINE HISTORY AND PHYSICAL: DATE OF ADMISSION: 07/24/16 PRIMARY CARE PHYSICIAN: Dr. Nowak. LIME KILN WORKER: Dr. Frey. ATTENDING PHYSICIAN: Dr. Jeff Lopez* (dictation provided by Jacquelin Guzman NP). CHIEF COMPLAINT: Altered mental status. HISTORY OF PRESENT ILLNESS: Mr. Oviedo is a 76-year-old male with a past medical history of stage 4 chronic kidney disease with new hepatic failure with current diagnosis of an autoimmune hepatitis as well as hypertension and prostate cancer, status post treatment, who presents to the hospital today with altered mental status. Mr. Oviedo was discharged from our hospital on 07/21 after being treated for hepatic encephalopathy related to his cirrhosis. Please see the dictated discharge summary from Dr. Joleen العلي for complete details. In brief, the patient had been admitted to the hospital on 07/18/16 with altered mental status. It was suspected that he had hepatic encephalopathy perhaps secondary to dehydration. The patient was started on lactulose and given gentle hydration. With this, his mental status returned to baseline and he was discharged. There was no inciting underlying infection or other etiology that explained the precipitation of his hepatic encephalopathy at that point. Mr. Oviedo's family states he was doing well since returning home and in fact yesterday was the best day they had seen for him in a while. He was active and engaged. However, by the evening he was much more tired. They state that today he has been lethargic and uninterested in eating or drinking. They have been able to get him to take his lactulose exactly as prescribed. They report that yesterday and the day before, he had 3 bowel movements. Today , he has had 1 bowel movement. He has urinated frequently. Today based on his alteration of mental status, they brought him to the emergency room for evaluation. They do not note any other complaint. There has been no fever, no chills, no complaint of abdominal pain. They do note that his abdomen is more swollen and that there seems to be some leakage from the site where a paracentesis was performed, and they have been covering the site with a gauze bandage. In the emergency room, Mr. Oviedo is altered. He is lethargic but does respond appropriately to command. He has an elevated ammonia level to 127, which is the highest we have seen for him. At last admission, it was 116. He shows no evidence of a urine infection. Chest x-ray is pending. Blood pressure is stable, but he has been showing evidence of SVT with heart rate running into the 140s intermittently during the time of my examination. PAST MEDICAL HISTORY: 1. Hepatic encephalopathy with admission to the hospital 07/18/16 to 07/21/16. 2. Liver cirrhosis, question autoimmune. Followup biopsy analysis at [facility] pending. 3. Stage 4 CKD. 4. Hypertension. 5. Basal cell carcinoma, status post excision. 6. Radical prostatectomy in 2002 with radiation in 2016. 7. Status post hernia repair x2. 8. Bilateral knee replacement. OUTPATIENT MEDICATIONS: 1. Tylenol 650 mg p.o. q.6h. p.r.n. 2. Furosemide 20 mg p.o. daily. 3. Lactulose 30 mL p.o. t.i.d. 4. Amlodipine 5 mg p.o. daily. 5. Omeprazole 40 mg p.o. daily. 6. Spironolactone 25 mg p.o. daily. ALLERGIES: No known drug allergies. FAMILY HISTORY: The patient's mother has a history of coronary artery bypass graft and neck tumor. Father had colorectal cancer. SOCIAL HISTORY: The patient is a former smoker. He quit smoking 40 years ago. He has not drank anything since New Year's, but he was never a heavy drinker per the report. His daughter Kathryn is the surrogate decision maker. REVIEW OF SYSTEMS: Unobtainable. PHYSICAL EXAMINATION GENERAL: Mr. Oviedo is lying in the bed. His eyes are closed throughout my examination, but he will open them and follow all commands. VITAL SIGNS: Temperature 97.2, heart rate 89, respiratory rate 13, O2 saturation 92% on room air, blood pressure 157/75. LUNGS: Clear to auscultation bilaterally with no accessory muscle use and good aeration. HEART: S1, S2. No murmur, rub or gallop and regular. ABDOMEN: The abdomen is soft and nontender with bowel sounds positive x4. The abdomen is protuberant. EXTREMITIES: Positive for 2+ edema. NEUROLOGIC: Again he is lethargic but opens eyes and follows commands. He knows his name and date of , but is unable to state where he is today. He moves all extremities equally on command and is able to reposition himself in bed easily. He has no facial asymmetry. Extraocular movements are intact. Pupils are equal and reactive. SKIN: Intact. DIAGNOSTIC STUDIES/LABORATORY DATA: WBC 3.3, hemoglobin 9.8, hematocrit 29, platelet count 81, INR 1.88. Sodium 133, potassium 4.2, chloride 105, serum bicarbonate 24, BUN 35, creatinine 4.40, glucose 111. Troponin is 0.05, AST 64 , ALT 55, alk phos 138, total bili 5.3, ammonia 127. Urine shows no evidence of infection. Tox screen for alcohol is negative. ASSESSMENT: Mr. Oviedo is a 76-year-old male with a past medical history of a recent diagnosis in January 2016 with cirrhosis and hepatic failure, as well as stage 4 kidney disease, who presents to the hospital today with altered mental status and hepatic encephalopathy. Our plans are for inpatient admission for the following. 1. Hepatic encephalopathy. The patient has been taking his lactulose per routine per family with 3 bowel movements per day. It is unclear what is causing his acute decompensation. There is no evidence of a urinary tract infection. Chest x-ray is pending. I do have concern for spontaneous bacterial peritonitis and plan to treat with cefepime as cefotaxime is not available per formulary, pending plan for likely paracentesis tomorrow. This will need to be called in the a.m. and arranged with interventional radiologist. I think that the fluid should also be sent for analysis for cell count, etc. The plan is to treat the hepatic encephalopathy with an increased dose of lactulose and to also add rifaximin which has been administered this evening. 2. Hepatic failure. The patient's white blood cell count, hemoglobin, platelet count are all stable, although they are all low. His INR is elevated at 1.88. Plan to consult Gastroenterology tomorrow. Family is hopeful for possible transplant, but I cautioned them that this is complicated by the fact that the patient also has a concomitant acute on chronic kidney failure. 3. Chronic kidney disease stage 4. The patient's creatinine has been elevated since 2010 up to 2, but it is noted that as of May 2016, he has acute worsening of his creatinine up to 3 and for the past since the end of June, his creatinine has been up around 4. I suspect this is secondary to chronic underlying kidney disease worsened by his liver failure. I do not think that hydration is going to help, but in fact I think he needs further diuresis in management of his fluid status to prevent accumulation of ascites. I plan to put him back on Bumex that he had been on previously and to continue spironolactone. We will recheck all his labs tomorrow. 4. Supraventricular tachycardia. The patient's heart rate is up to 140 at times here in the emergency room. His blood pressure is stable. I plan to give him a very low dose of metoprolol and to monitor on telemetry. His electrolytes are within normal limits. 5. DVT prophylaxis with SCDs only. 6. Code status is a full code. I did review this at length with the patient and the patient's , family, daughter, and son at the bedside. At this time , they would like him to remain full code. 7. Disposition to telemetry floor due to supraventricular tachycardia. TIME SPENT: Approximately 75 minutes were spent on admission of this patient, more than half the time was spent with the patient and his family at the bedside reviewing the events leading up to this hospitalization, performing the physical examination, and reviewing my plan of care. JACQUELIN GUZMAN NP CC: Dr. Nowak; Dr. Frey * [id number]/[facility] #: [id number] [facility]
[2016-07-25 05:15] LABS: Albumin 1.8 g/dL (3.2-5.2); BUN/Creatinine Ratio 8.6 (8-20); Calcium 8.9 mg/dL (8.6-10.3); EGFR African American 17.7 (>60); EGFR Non-African American 13.8 (>60); Globulin 4.1 g/dL (2-4); Potassium 3.8 mmol/L (3.5-5.0); Total Bilirubin 5.9 mg/dL (0.2-1.0); Total Protein 5.9 g/dL (6.4-8.9)
[2016-07-25] MEDS ORDERED: Cefepime(*) 1 GM in NS 0.9% 50 ML* 50 ML IVPB SCH (08:00)
[2016-07-25] MEDS: Spironolactone TAB* 25 MG PO SCH (09:48)
[2016-07-25] MEDS: RiFAXimin* 550 MG TAB PO SCH ×2 (09:48→20:18)
[2016-07-25] MEDS: LACTULOSE* 30 ML UDC PO SCH ×4 (09:48→20:18)
[2016-07-25] MEDS: Bumetanide TAB* 2 MG PO SCH (09:48)
[2016-07-25] MEDS: Omeprazole CAP* 20 MG PO SCH (09:49)
--- NOTE | 2016-07-25 12:32 | RAD ---
INDICATION: Large volume ascites. Diagnostic and therapeutic paracentesis requested. COMPARISON: July 19, 2016 CT. Written informed consent obtained. Timeout performed. PROCEDURE: Routine aseptic skin prep at the anterior RIGHT mid abdomen. Superficial soft tissues anesthetized with 3 mL 1% lidocaine. Under direct ultrasound visualization a 5-Portuguese catheter over an introducer needle was advanced into the peritoneal cavity at site of largest pocket of ascites with prompt return of clear straw ascites. 4.5 L of ascites aspirated under vacuum. Catheter removed. Xeroform gauze and sterile bandage applied. Sample sent to the lab for analysis as requested by the referring physician. The patient tolerated the procedure well with no immediate complications. IMPRESSION: Successful US guided paracentesis.
[2016-07-25 12:50] LABS: Body Fluid Appearance Clear
[2016-07-25 13:09] LABS: Body Fluid WBC 43 /mcL
[2016-07-25 13:16] LABS: Body Fluid Total Cells Counted 100
--- NOTE | 2016-07-25 13:35 | PN ---
Subjective Date of Service: 07/25/16 Interval History: Spoke with family earlier this morning, patient seen in the afternoon after paracentesis. He still seems a bit delayed in his answers. Says he feels much better after paracentesis. Reports that confusion is his biggest problem. Family present and concerned. Family History: Unchanged from Admission Social History: Unchanged from Admission Past Medical History: Unchanged from Admission Objective Active Medications: Bumetanide (Bumex Tab*) 1 mg PO DAILY [facility] Cefepime HCl 1 gm/ Sodium (Chloride) 50 mls @ 100 mls/hr IVPB Q12H [facility] Lactulose (Lactulose*) 30 ml PO QID [facility] Omeprazole (Prilosec Cap*) 40 mg PO DAILY@0730 [facility] Rifaximin (Xifaxan*) 550 mg PO BID [facility] Spironolactone (Aldactone Tab*) 25 mg PO DAILY [facility] Vital Signs 07/24/16 07/24/16 07/24/16 19:18 19:30 19:55 Temperature Pulse Rate 89 98 91 Respiratory 17 19 Rate Blood Pressure 120/78 126/113 151/80 (mmHg) O2 Sat by Pulse 94 97 96 Oximetry 07/24/16 07/24/16 07/24/16 20:00 20:47 21:44 Temperature 98.0 F Pulse Rate 88 80 Respiratory 15 16 16 Rate Blood Pressure 147/77 108/76 (mmHg) O2 Sat by Pulse 97 99 Oximetry 07/25/16 07/25/16 07/25/16 00:13 03:29 07:44 Temperature 97.8 F 98.1 F 98.0 F Pulse Rate 66 65 65 Respiratory 20 20 20 Rate Blood Pressure 135/60 124/53 116/50 (mmHg) O2 Sat by Pulse 99 100 94 Oximetry Oxygen Devices in Use Now: None Appearance: Elderly, M, laying in bed in NAD Eyes: - - Sclera icterus Ears/Nose/Mouth/Throat: Mucous Membranes Moist Neck: NL Appearance and Movements; NL JVP Respiratory: Symmetrical Chest Expansion and Respiratory Effort, Clear to Auscultation Cardiovascular: NL Sounds; No Murmurs; No JVD, RRR Abdominal: - - Soft, non-tender, non-distended, BS+, dressing on R abdomen c/d/i Lymphatic: No Cervical Adenopathy Extremities: - - B/L LE pitting edema to upper thighs Skin: No Rash or Ulcers Neurological: - - Alert, oriented to self, place, year, month, could not name day of week, no focal deficits Result Diagrams: 07/24/16 16:33 07/25/16 04:54 Assess/Plan/Problems-Billing Assessment: Hepatic encephalopathy in a 76 yo M with hx of recently diagnosed cirrhosis (? autoimmune vs toxic), CKD4 - Patient Problems (1) Hepatic encephalopathy Current Visit: No Comment: Seems to be improving as per family. Continue increased dose of Lactulose and Rifaximin. Cause of decompensation is not clear , was compliant with Lactulose. Paracentesis done today with ~4L removed, results pending, to evaluate for possible SBP. Continue ABx for now. (2) Cryptogenic cirrhosis Current Visit: No Comment: Have asked GI to consult for assistance in management. ?etiology of the cirrhosis. If this is autoimmune any benefit to steroids? Has upcoming appointment at [facility] for transplant evaluation, family questioning whether he needs to be seen sooner. Continue Bumex and Spironolactone for now. (3) Chronic kidney disease, stage IV (severe) Current Visit: No Comment: Creatinine slightly improved today. Continue to monitor closely. (4) SVT (supraventricular tachycardia) Current Visit: Yes Comment: No further episodes since last night. Monitor on tele 24 hours more (5) DVT prophylaxis Current Visit: No Comment: SCDs
[2016-07-26 04:57] LABS: Albumin 1.8 g/dL (3.2-5.2); BUN/Creatinine Ratio 9.5 (8-20); Calcium 8.9 mg/dL (8.6-10.3); EGFR African American 16.4 (>60); EGFR Non-African American 12.7 (>60); Potassium 3.7 mmol/L (3.5-5.0); Total Bilirubin 5.6 mg/dL (0.2-1.0); Total Protein 5.8 g/dL (6.4-8.9)
[2016-07-26] MEDS: Omeprazole CAP* 20 MG PO SCH (08:53)
[2016-07-26] MEDS: Bumetanide TAB* 2 MG PO SCH (08:53)
[2016-07-26] MEDS: LACTULOSE* 30 ML UDC PO SCH ×4 (08:55→22:32)
[2016-07-26] MEDS: Spironolactone TAB* 25 MG PO SCH (08:56)
[2016-07-26] MEDS: RiFAXimin* 550 MG TAB PO SCH ×2 (08:56→22:13)
--- NOTE | 2016-07-26 12:21 | PN ---
Subjective Date of Service: 07/26/16 Interval History: Patient seen this morning with and daughter present. Seems more clear today. Denies any pain. Only complaint is that he wants to get washed up. Has only had 1 BM since admission. Family met with Dr. Frey this AM. Family History: Unchanged from Admission Social History: Unchanged from Admission Past Medical History: Unchanged from Admission Objective Active Medications: Bumetanide (Bumex Tab*) 1 mg PO DAILY [facility] Lactulose (Lactulose*) 45 ml PO QID [facility] Omeprazole (Prilosec Cap*) 40 mg PO DAILY@0730 [facility] Rifaximin (Xifaxan*) 550 mg PO BID [facility] Spironolactone (Aldactone Tab*) 25 mg PO DAILY [facility] Vital Signs 07/25/16 07/25/16 07/25/16 12:56 16:30 17:01 Temperature 97.5 F 97.8 F Pulse Rate 77 74 Respiratory 20 20 Rate Blood Pressure 160/70 137/58 (mmHg) O2 Sat by Pulse 98 100 Oximetry 07/25/16 07/25/16 07/26/16 18:53 20:07 00:14 Temperature 97.8 F 98.0 F Pulse Rate 71 70 Respiratory 20 20 Rate Blood Pressure 145/65 142/63 (mmHg) O2 Sat by Pulse 99 94 Oximetry 07/26/16 07/26/16 07/26/16 04:38 07:45 08:00 Temperature 98.5 F 98.4 F Pulse Rate 68 130 Respiratory 20 20 18 Rate Blood Pressure 148/63 154/67 (mmHg) O2 Sat by Pulse 94 94 Oximetry Oxygen Devices in Use Now: None Appearance: Elderly, M, laying in bed in NAD Eyes: - - Sclera icterus Ears/Nose/Mouth/Throat: Mucous Membranes Moist Neck: NL Appearance and Movements; NL JVP Respiratory: Symmetrical Chest Expansion and Respiratory Effort, Clear to Auscultation Cardiovascular: NL Sounds; No Murmurs; No JVD, RRR Abdominal: - - Soft, mild distension, non-tender, dressing in place on RLQ from para, some slight yellowing, no rebound/guarding Lymphatic: No Cervical Adenopathy Extremities: - - B/L LE edema Neurological: Alert and Oriented x 3 Result Diagrams: 07/24/16 16:33 07/26/16 04:30 Microbiology and Other Data: Microbiology 07/25/16 11:50 Gram Stain - Final Body Fluid - Peritoneal Assess/Plan/Problems-Billing Assessment: Hepatic encephalopathy in a 76 yo M with hx of recently diagnosed cirrhosis (? autoimmune vs toxic), CKD4 - Patient Problems (1) Hepatic encephalopathy Current Visit: No Comment: Mental status improving. Lactulose increased to [address] Frey. Continue to monitor for BMs. Continue Rifaximin. No evidence of SBP on paracentesis. Stopped ABx. 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 Still awaiting report of slides from [place] to see if this may be autoimmunue in which trial of steroids could be started. Continue diuretics for now with a close eye on renal function , if trending up more will hold (3) Chronic kidney disease, stage IV (severe) Current Visit: No Comment: Creatinine up a bit, if continues to trend up tomorrow will hold diuretics (4) SVT (supraventricular tachycardia) Current Visit: Yes Comment: Asymptomatic. D/C tele (5) DVT prophylaxis Current Visit: No Comment: SCDs Status and Disposition: Pending improvement in BMs and Gallo report
[2016-07-26] MEDS ORDERED: Ondansetron INJ* 2 MG/ML VIAL IV PRN (18:10)
--- NOTE | 2016-07-26 20:41 | ED ---
Hunter Van [place], scribed for Matt Shah MD on 07/24/16 at 1535 . Altered Mental Status - HPI Summary HPI Summary: Patient is 76 y/o male who presents to the ED with AMS since earlier today. He is confused, but denies pain or falling. Caregivers report he has been combative. [place] [facility] [place] - History Of Current Complaint Chief Complaint: EDAltMentalStatus Stated Complaint: CONFUSED Time Seen by Provider: 07/24/16 15:19 Hx Obtained From: Patient, Family/Database Security Administrator Hx From Patient Unobtainable Due To: Altered Mental Status Severity Initially: Moderate Severity Currently: Moderate Character: Confusion Aggravating Factor(s): Nothing Alleviating Factor(s): Nothing Associated Signs And Symptoms: Positive: Negative - Allergies/Home Medications Allergies/Adverse Reactions: Allergies Allergy/AdvReac Type Severity Reaction Status Date / Time No Known Allergies Allergy Verified 07/17/16 11:19 Home Medications: Home Medications Acetaminophen TAB* [Tylenol TAB*] 650 mg PO Q6H PRN 07/24/16 [History Confirmed 07/24/16] Furosemide TAB* [Lasix TAB*] 20 mg PO DAILY 07/24/16 [History Confirmed 07/24/16 ] Lactulose* 30 ml PO TID 07/24/16 [History Confirmed 07/24/16] Omeprazole CAP* [Prilosec CAP* 20 MG] 40 mg PO DAILY 07/24/16 [History Confirmed 07/24/16] Spironolactone TAB* [Aldactone TAB*] 25 mg PO DAILY 07/24/16 [History Confirmed 07/24/16] amLODIPine TAB* [Norvasc TAB*] 5 mg PO DAILY 07/24/16 [History Confirmed ] PMH/Surg Hx/FS Hx/Imm Hx Cardiovascular History: Reports: Hx Hypertension Musculoskeletal History: Reports: Hx Arthritis Sensory History: Reports: Hx Contacts or Glasses Opthamlomology History: Reports: Hx Contacts or Glasses - Cancer History Cancer Type, Location 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 All Other Systems Reviewed And Are Negative: Yes Physical Exam Triage Information Reviewed: Yes Vital Signs On Initial Exam: Initial Vitals Temp Pulse Resp BP Pulse Ox 97.2 F 97 18 155/74 96 07/24/16 14:38 07/24/16 14:38 07/24/16 14:38 07/24/16 14:38 07/24/16 14:38 Vital Signs Reviewed: Yes Appearance: Positive: Well-Appearing, No Pain Distress Skin: Positive: Warm, Skin Color Reflects Adequate Perfusion, Dry Head/Face: Positive: Normal Head/Face Inspection Eyes: Positive: Normal Neck: Positive: Supple, Nontender Respiratory/Lung Sounds: Positive: Clear to Auscultation, Breath Sounds Present Cardiovascular: Positive: RRR Abdomen Description: Positive: Nontender, Soft, Other: - No sign of jaundice. Bowel Sounds: Positive: Present Musculoskeletal: Positive: Other - Asterixis. Neurological: Positive: Other - Confused. Alert, Oriented X 2. Psychiatric: Positive: Normal, Affect/Mood Appropriate Diagnostics - Vital Signs Vital Signs Temp Pulse Resp BP Pulse Ox 07/24/16 14:38 97.2 F 97 18 155/74 96 - Laboratory Lab Results: Lab Results 07/24/16 07/24/16 07/24/16 Range/Units 16:33 16:33 16:33 WBC 3.3 L (3.5-10.8) 10^3/ul RBC 2.81 L (4.0-5.4) 10^6/ul Hgb 9.8 L (14.0-18.0) g/dl Hct 29 L (42-52) % MCV 102 H (80-94) fL MCH 35 H (27-31) pg MCHC 34 (31-36) g/dl RDW 19 H (10.5-15) % Plt Count 81 L (150-450) 10^3/ul MPV 9 (7.4-10.4) um3 Neut % (Auto) 59.4 (38-83) % Lymph % (Auto) 14.6 L (25-47) % [place] % (Auto) 19.6 H (1-9) % Eos % (Auto) 6.0 (0-6) % Baso % (Auto) 0.4 (0-2) % Absolute Neuts (auto) 2.0 (1.5-7.7) 10^3/ul Absolute Lymphs (auto) 0.5 L (1.0-4.8) 10^3/ul Absolute Monos (auto) 0.7 (0-0.8) 10^3/ul Absolute Eos (auto) 0.2 (0-0.6) 10^3/ul Absolute Basos (auto) 0 (0-0.2) 10^3/ul Absolute Nucleated RBC 0 10^3/ul Nucleated RBC % 0.1 INR (Anticoag Therapy) (0.89-1.11) Sodium 133 (133-145) mmol/L Potassium 4.2 (3.5-5.0) mmol/L Chloride 105 (101-111) mmol/L Carbon Dioxide 24 (22-32) mmol/L Anion Gap 4 (2-11) mmol/L BUN 35 H (6-24) mg/dL Creatinine 4.40 H (0.67-1.17) mg/dL Est GFR ( Amer) 16.9 (>60) Est GFR (Non-Af Amer) 13.1 (>60) BUN/Creatinine Ratio 8.0 (8-20) Glucose 111 H (70-100) mg/dL Lactic Acid 1.9 (0.5-2.0) mmol/L Calcium 9.1 (8.6-10.3) mg/dL Total Bilirubin 5.30 H (0.2-1.0) mg/dL AST 64 H (13-39) U/L ALT 55 H (7-52) U/L Alkaline Phosphatase 138 H (34-104) U/L Ammonia (16-53) mol/L Troponin I 0.05 H* (<0.04) ng/mL Total Protein 6.9 (6.4-8.9) g/dL Albumin 2.1 L (3.2-5.2) g/dL Globulin 4.8 H (2-4) g/dL Albumin/Globulin Ratio 0.4 L (1-3) Urine Color Urine Appearance Urine pH (5-9) Ur Specific [place] (1.010-1.030) Urine Protein (Negative) Urine Ketones (Negative) Urine Blood (Negative) Urine Nitrate (Negative) Urine Bilirubin (Negative) Urine Urobilinogen (Negative) Ur Leukocyte Esterase (Negative) Urine Glucose (Negative) Serum Alcohol < 10 (<10) mg/dL 07/24/16 07/24/16 07/24/16 Range/Units 16:33 16:33 18:20 WBC (3.5-10.8) 10^3/ul RBC (4.0-5.4) 10^6/ul Hgb (14.0-18.0) g/dl Hct (42-52) % MCV (80-94) fL MCH (27-31) pg MCHC (31-36) g/dl RDW (10.5-15) % Plt Count (150-450) 10^3/ul MPV (7.4-10.4) um3 Neut % (Auto) (38-83) % Lymph % (Auto) (25-47) % [place] % (Auto) (1-9) % Eos % (Auto) (0-6) % Baso % (Auto) (0-2) % Absolute Neuts (auto) (1.5-7.7) 10^3/ul Absolute Lymphs (auto) (1.0-4.8) 10^3/ul Absolute Monos (auto) (0-0.8) 10^3/ul Absolute Eos (auto) (0-0.6) 10^3/ul Absolute Basos (auto) (0-0.2) 10^3/ul Absolute Nucleated RBC 10^3/ul Nucleated RBC % INR (Anticoag Therapy) 1.88 H (0.89-1.11) Sodium (133-145) mmol/L Potassium (3.5-5.0) mmol/L Chloride (101-111) mmol/L Carbon Dioxide (22-32) mmol/L Anion Gap (2-11) mmol/L BUN (6-24) mg/dL Creatinine (0.67-1.17) mg/dL Est GFR ( Amer) (>60) Est GFR (Non-Af Amer) (>60) BUN/Creatinine Ratio (8-20) Glucose (70-100) mg/dL Lactic Acid (0.5-2.0) mmol/L Calcium (8.6-10.3) mg/dL Total Bilirubin (0.2-1.0) mg/dL AST (13-39) U/L ALT (7-52) U/L Alkaline Phosphatase (34-104) U/L Ammonia 127 H (16-53) mol/L Troponin I (<0.04) ng/mL Total Protein (6.4-8.9) g/dL Albumin (3.2-5.2) g/dL Globulin (2-4) g/dL Albumin/Globulin Ratio (1-3) Urine Color Yellow Urine Appearance Clear Urine pH 6.0 (5-9) Ur Specific [place] 1.011 (1.010-1.030) Urine Protein Negative (Negative) Urine Ketones Negative (Negative) Urine Blood Negative (Negative) Urine Nitrate Negative (Negative) Urine Bilirubin Negative (Negative) Urine Urobilinogen Negative (Negative) Ur Leukocyte Esterase Negative (Negative) Urine Glucose Negative (Negative) Serum Alcohol (<10) mg/dL Result Diagrams: 07/24/16 16:33 07/26/16 04:30 Lab Statement: Any lab studies that have been ordered have been reviewed, and results considered in the medical decision making process. - EKG 1556 EKG Interpretation: Sinus rhythm @ 83 bpm with non-specific ST/T changes. Altered Mental Statu Course/Dx - Course Course Of Treatment: Mr. Lozano was brought in confused and found to have a return of his hepatic encephalopathy. - Diagnoses Discharge Diagnoses: Hepatic encephalopathy - Provider Notifications Discussed Care Of Patient With: Dr. Mercedes (Hospitalist) @ [id number]. Discussed pt's case. Will admit. Discharge - Discharge Plan Condition: Guarded Disposition: ADMITTED TO [facility] documentation as recorded by the Hunter awan Salem accurately reflects the service I personally performed and the decisions made by me, Matt Shah MD.
[2016-07-27 07:23] LABS: Albumin 1.9 g/dL (3.2-5.2); BUN/Creatinine Ratio 8.3 (8-20); EGFR African American 15.2 (>60); EGFR Non-African American 11.8 (>60); Globulin 4.2 g/dL (2-4); Potassium 3.8 mmol/L (3.5-5.0); Total Bilirubin 5.8 mg/dL (0.2-1.0); Total Protein 6.1 g/dL (6.4-8.9)
[2016-07-27] MEDS: LACTULOSE* 30 ML UDC PO SCH ×4 (08:35→21:49)
[2016-07-27] MEDS: RiFAXimin* 550 MG TAB PO SCH ×2 (08:35→21:49)
[2016-07-27] MEDS: Omeprazole CAP* 20 MG PO SCH (08:35)
--- NOTE | 2016-07-27 11:04 | PN ---
Subjective Date of Service: 07/27/16 Interval History: Had long discussion with patient and son and then again later with patient, and daughter. He says he is feeling well. Mental status is clear. He ambulated around the unit earlier. Has been moving his bowels more frequently. Patient and son initially felt he was ready to go home but other family members are hesitant. Spoke with Dr. Nowak on the phone and agreed to monitor the patient for an additional day. Family History: Unchanged from Admission Social History: Unchanged from Admission Past Medical History: Unchanged from Admission Objective Active Medications: Lactulose (Lactulose*) 45 ml PO QID [facility] Omeprazole (Prilosec Cap*) 40 mg PO DAILY@0730 [facility] Ondansetron HCl (Zofran Inj*) 4 mg IV Q6H PRN Rifaximin (Xifaxan*) 550 mg PO BID [facility] Vital Signs 07/26/16 07/26/16 07/26/16 11:44 15:16 19:46 Temperature 98.4 F 98.1 F Pulse Rate 72 75 Respiratory 18 17 17 Rate Blood Pressure 146/64 148/61 (mmHg) O2 Sat by Pulse 97 98 Oximetry 07/26/16 07/26/16 07/27/16 23:12 23:15 07:23 Temperature 98.1 F 98.1 F 98.5 F Pulse Rate 74 74 85 Respiratory 17 17 16 Rate Blood Pressure 157/64 157/64 132/52 (mmHg) O2 Sat by Pulse 95 95 95 Oximetry Oxygen Devices in Use Now: None Appearance: Elderly, M, sitting in chair in NAD Eyes: - - Scleral icterus Ears/Nose/Mouth/Throat: Mucous Membranes Moist Neck: NL Appearance and Movements; NL JVP Respiratory: Symmetrical Chest Expansion and Respiratory Effort, Clear to Auscultation Cardiovascular: NL Sounds; No Murmurs; No JVD, RRR Abdominal: - - Soft, slightly distended, BS+, non-tender Lymphatic: No Cervical Adenopathy Extremities: - - B/L LE edema Skin: - - Jaundiced Neurological: Alert and Oriented x 3 Result Diagrams: 07/24/16 16:33 07/27/16 06:46 Additional Lab and Data: Lab Results 07/24/16 07/24/16 07/24/16 Range/Units 16:33 16:33 16:33 WBC 3.3 L (3.5-10.8) 10^3/ul RBC 2.81 L (4.0-5.4) 10^6/ul Hgb 9.8 L (14.0-18.0) g/dl Hct 29 L (42-52) % MCV 102 H (80-94) fL MCH 35 H (27-31) pg MCHC 34 (31-36) g/dl RDW 19 H (10.5-15) % Plt Count 81 L (150-450) 10^3/ul MPV 9 (7.4-10.4) um3 Neut % (Auto) 59.4 (38-83) % Lymph % (Auto) 14.6 L (25-47) % [place] % (Auto) 19.6 H (1-9) % Eos % (Auto) 6.0 (0-6) % Baso % (Auto) 0.4 (0-2) % Absolute Neuts (auto) 2.0 (1.5-7.7) 10^3/ul Absolute Lymphs (auto) 0.5 L (1.0-4.8) 10^3/ul Absolute Monos (auto) 0.7 (0-0.8) 10^3/ul Absolute Eos (auto) 0.2 (0-0.6) 10^3/ul Absolute Basos (auto) 0 (0-0.2) 10^3/ul Absolute Nucleated RBC 0 10^3/ul Nucleated RBC % 0.1 INR (Anticoag Therapy) (0.89-1.11) Sodium 133 (133-145) mmol/L Potassium 4.2 (3.5-5.0) mmol/L Chloride 105 (101-111) mmol/L Carbon Dioxide 24 (22-32) mmol/L Anion Gap 4 (2-11) mmol/L BUN 35 H (6-24) mg/dL Creatinine 4.40 H (0.67-1.17) mg/dL Est GFR ( Amer) 16.9 (>60) Est GFR (Non-Af Amer) 13.1 (>60) BUN/Creatinine Ratio 8.0 (8-20) Glucose 111 H (70-100) mg/dL Lactic Acid 1.9 (0.5-2.0) mmol/L Calcium 9.1 (8.6-10.3) mg/dL Total Bilirubin 5.30 H (0.2-1.0) mg/dL AST 64 H (13-39) U/L ALT 55 H (7-52) U/L Alkaline Phosphatase 138 H (34-104) U/L Ammonia (16-53) mol/L Troponin I 0.05 H* (<0.04) ng/mL Total Protein 6.9 (6.4-8.9) g/dL Albumin 2.1 L (3.2-5.2) g/dL Globulin 4.8 H (2-4) g/dL Albumin/Globulin Ratio 0.4 L (1-3) Urine Color Urine Appearance Urine pH (5-9) Ur Specific [place] (1.010-1.030) Urine Protein (Negative) Urine Ketones (Negative) Urine Blood (Negative) Urine Nitrate (Negative) Urine Bilirubin (Negative) Urine Urobilinogen (Negative) Ur Leukocyte Esterase (Negative) Urine Glucose (Negative) Serum Alcohol < 10 (<10) mg/dL 07/24/16 07/24/16 07/24/16 Range/Units 16:33 16:33 18:20 WBC (3.5-10.8) 10^3/ul RBC (4.0-5.4) 10^6/ul Hgb (14.0-18.0) g/dl Hct (42-52) % MCV (80-94) fL MCH (27-31) pg MCHC (31-36) g/dl RDW (10.5-15) % Plt Count (150-450) 10^3/ul MPV (7.4-10.4) um3 Neut % (Auto) (38-83) % Lymph % (Auto) (25-47) % [place] % (Auto) (1-9) % Eos % (Auto) (0-6) % Baso % (Auto) (0-2) % Absolute Neuts (auto) (1.5-7.7) 10^3/ul Absolute Lymphs (auto) (1.0-4.8) 10^3/ul Absolute Monos (auto) (0-0.8) 10^3/ul Absolute Eos (auto) (0-0.6) 10^3/ul Absolute Basos (auto) (0-0.2) 10^3/ul Absolute Nucleated RBC 10^3/ul Nucleated RBC % INR (Anticoag Therapy) 1.88 H (0.89-1.11) Sodium (133-145) mmol/L Potassium (3.5-5.0) mmol/L Chloride (101-111) mmol/L Carbon Dioxide (22-32) mmol/L Anion Gap (2-11) mmol/L BUN (6-24) mg/dL Creatinine (0.67-1.17) mg/dL Est GFR ( Amer) (>60) Est GFR (Non-Af Amer) (>60) BUN/Creatinine Ratio (8-20) Glucose (70-100) mg/dL Lactic Acid (0.5-2.0) mmol/L Calcium (8.6-10.3) mg/dL Total Bilirubin (0.2-1.0) mg/dL AST (13-39) U/L ALT (7-52) U/L Alkaline Phosphatase (34-104) U/L Ammonia 127 H (16-53) mol/L Troponin I (<0.04) ng/mL Total Protein (6.4-8.9) g/dL Albumin (3.2-5.2) g/dL Globulin (2-4) g/dL Albumin/Globulin Ratio (1-3) Urine Color Yellow Urine Appearance Clear Urine pH 6.0 (5-9) Ur Specific [place] 1.011 (1.010-1.030) Urine Protein Negative (Negative) Urine Ketones Negative (Negative) Urine Blood Negative (Negative) Urine Nitrate Negative (Negative) Urine Bilirubin Negative (Negative) Urine Urobilinogen Negative (Negative) Ur Leukocyte Esterase Negative (Negative) Urine Glucose Negative (Negative) Serum Alcohol (<10) mg/dL Microbiology and Other Data: Microbiology 07/25/16 11:50 Gram Stain - Final Body Fluid - Peritoneal Assess/Plan/Problems-Billing Assessment: Hepatic encephalopathy in a 76 yo M with hx of recently diagnosed cirrhosis (? autoimmune vs toxic), CKD4 - Patient Problems (1) Hepatic encephalopathy Current Visit: No Comment: Mental status improving. Lactulose increased to [address] Frey on 07/26, will continue this dose. Continue Rifaximin. No evidence of SBP on paracentesis. Stopped ABx. 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 Still awaiting report of slides from [place] to see if this may be autoimmunue in which trial of steroids could be started. Will hold diuretics with increasing creatinine. Will get repeat US to evaluate reaccumulation of ascites and ?whether patient will need another tap before discharge. (3) Chronic kidney disease, stage IV (severe) Current Visit: No Comment: Creatinine up a bit, continue to monitor daily (4) DVT prophylaxis Current Visit: No Comment: SCDs Status and Disposition: Inpatient for hepatic encephalopathy, recurrent ascites
--- NOTE | 2016-07-27 12:52 | RAD ---
Indication: Assess for ascites. Comparison: July 25, 2016 RIGHT lower quadrant paracentesis ultrasound images. Technique: Ultrasound of the 4 quadrants of the abdomen. REPORT AND IMPRESSION: Moderately large volume of diffuse ascites present.
[2016-07-28] MEDS: Omeprazole CAP* 20 MG PO SCH (07:46)
[2016-07-28] MEDS: RiFAXimin* 550 MG TAB PO SCH ×2 (07:46→21:20)
[2016-07-28 08:46] LABS: Albumin 2.1 g/dL (3.2-5.2); BUN/Creatinine Ratio 8.1 (8-20); Calcium 9.4 mg/dL (8.6-10.3); EGFR African American 14.3 (>60); EGFR Non-African American 11.1 (>60); Globulin 4.6 g/dL (2-4); Potassium 3.6 mmol/L (3.5-5.0); Total Bilirubin 5.9 mg/dL (0.2-1.0); Total Protein 6.7 g/dL (6.4-8.9)
[2016-07-28] MEDS: LACTULOSE* 30 ML UDC PO SCH ×4 (09:57→21:19)
--- NOTE | 2016-07-28 11:19 | PN ---
Subjective Date of Service: 07/28/16 Interval History: Patient seen this morning. Says he feels fairly well today in terms of his abdomen, no distension or discomfort. Has been having frequent BMs overnight which has kept him awake. Spoke at length with daughter later in the morning as well. Family History: Unchanged from Admission Social History: Unchanged from Admission Past Medical History: Unchanged from Admission Objective Active Medications: Lactulose (Lactulose*) 30 ml PO QID [facility] Omeprazole (Prilosec Cap*) 40 mg PO DAILY@0730 [facility] Ondansetron HCl (Zofran Inj*) 4 mg IV Q6H PRN Rifaximin (Xifaxan*) 550 mg PO BID [facility] Vital Signs 07/27/16 07/27/16 07/27/16 15:43 16:11 20:00 Temperature 98.5 F Pulse Rate 82 Respiratory 12 16 Rate Blood Pressure 145/66 (mmHg) O2 Sat by Pulse 96 Oximetry 07/27/16 07/28/16 07/28/16 20:06 00:02 07:39 Temperature 98.5 F 97.6 F Pulse Rate 77 79 94 Respiratory 16 16 16 Rate Blood Pressure 159/67 126/58 144/66 (mmHg) O2 Sat by Pulse 97 97 94 Oximetry 07/28/16 07:48 Temperature Pulse Rate Respiratory 16 Rate Blood Pressure (mmHg) O2 Sat by Pulse Oximetry Oxygen Devices in Use Now: None Appearance: Middle-aged, M, laying in chair in NAD Eyes: - - Scleral icterus Ears/Nose/Mouth/Throat: Mucous Membranes Moist Neck: NL Appearance and Movements; NL JVP Respiratory: Symmetrical Chest Expansion and Respiratory Effort, Clear to Auscultation Cardiovascular: NL Sounds; No Murmurs; No JVD, RRR Abdominal: - - Soft, mild distension, non-tender, BS+ Lymphatic: No Cervical Adenopathy Extremities: - - Diffuse B/L LE edema to waist Skin: - - Jaundiced Neurological: Alert and Oriented x 3 Result Diagrams: 07/24/16 16:33 07/28/16 08:12 Additional Lab and Data: Lab Results 07/24/16 07/24/16 07/24/16 Range/Units 16:33 16:33 16:33 WBC 3.3 L (3.5-10.8) 10^3/ul RBC 2.81 L (4.0-5.4) 10^6/ul Hgb 9.8 L (14.0-18.0) g/dl Hct 29 L (42-52) % MCV 102 H (80-94) fL MCH 35 H (27-31) pg MCHC 34 (31-36) g/dl RDW 19 H (10.5-15) % Plt Count 81 L (150-450) 10^3/ul MPV 9 (7.4-10.4) um3 Neut % (Auto) 59.4 (38-83) % Lymph % (Auto) 14.6 L (25-47) % [place] % (Auto) 19.6 H (1-9) % Eos % (Auto) 6.0 (0-6) % Baso % (Auto) 0.4 (0-2) % Absolute Neuts (auto) 2.0 (1.5-7.7) 10^3/ul Absolute Lymphs (auto) 0.5 L (1.0-4.8) 10^3/ul Absolute Monos (auto) 0.7 (0-0.8) 10^3/ul Absolute Eos (auto) 0.2 (0-0.6) 10^3/ul Absolute Basos (auto) 0 (0-0.2) 10^3/ul Absolute Nucleated RBC 0 10^3/ul Nucleated RBC % 0.1 INR (Anticoag Therapy) (0.89-1.11) Sodium 133 (133-145) mmol/L Potassium 4.2 (3.5-5.0) mmol/L Chloride 105 (101-111) mmol/L Carbon Dioxide 24 (22-32) mmol/L Anion Gap 4 (2-11) mmol/L BUN 35 H (6-24) mg/dL Creatinine 4.40 H (0.67-1.17) mg/dL Est GFR ( Amer) 16.9 (>60) Est GFR (Non-Af Amer) 13.1 (>60) BUN/Creatinine Ratio 8.0 (8-20) Glucose 111 H (70-100) mg/dL Lactic Acid 1.9 (0.5-2.0) mmol/L Calcium 9.1 (8.6-10.3) mg/dL Total Bilirubin 5.30 H (0.2-1.0) mg/dL AST 64 H (13-39) U/L ALT 55 H (7-52) U/L Alkaline Phosphatase 138 H (34-104) U/L Ammonia (16-53) mol/L Troponin I 0.05 H* (<0.04) ng/mL Total Protein 6.9 (6.4-8.9) g/dL Albumin 2.1 L (3.2-5.2) g/dL Globulin 4.8 H (2-4) g/dL Albumin/Globulin Ratio 0.4 L (1-3) Urine Color Urine Appearance Urine pH (5-9) Ur Specific [place] (1.010-1.030) Urine Protein (Negative) Urine Ketones (Negative) Urine Blood (Negative) Urine Nitrate (Negative) Urine Bilirubin (Negative) Urine Urobilinogen (Negative) Ur Leukocyte Esterase (Negative) Urine Glucose (Negative) Serum Alcohol < 10 (<10) mg/dL 07/24/16 07/24/16 07/24/16 Range/Units 16:33 16:33 18:20 WBC (3.5-10.8) 10^3/ul RBC (4.0-5.4) 10^6/ul Hgb (14.0-18.0) g/dl Hct (42-52) % MCV (80-94) fL MCH (27-31) pg MCHC (31-36) g/dl RDW (10.5-15) % Plt Count (150-450) 10^3/ul MPV (7.4-10.4) um3 Neut % (Auto) (38-83) % Lymph % (Auto) (25-47) % [place] % (Auto) (1-9) % Eos % (Auto) (0-6) % Baso % (Auto) (0-2) % Absolute Neuts (auto) (1.5-7.7) 10^3/ul Absolute Lymphs (auto) (1.0-4.8) 10^3/ul Absolute Monos (auto) (0-0.8) 10^3/ul Absolute Eos (auto) (0-0.6) 10^3/ul Absolute Basos (auto) (0-0.2) 10^3/ul Absolute Nucleated RBC 10^3/ul Nucleated RBC % INR (Anticoag Therapy) 1.88 H (0.89-1.11) Sodium (133-145) mmol/L Potassium (3.5-5.0) mmol/L Chloride (101-111) mmol/L Carbon Dioxide (22-32) mmol/L Anion Gap (2-11) mmol/L BUN (6-24) mg/dL Creatinine (0.67-1.17) mg/dL Est GFR ( Amer) (>60) Est GFR (Non-Af Amer) (>60) BUN/Creatinine Ratio (8-20) Glucose (70-100) mg/dL Lactic Acid (0.5-2.0) mmol/L Calcium (8.6-10.3) mg/dL Total Bilirubin (0.2-1.0) mg/dL AST (13-39) U/L ALT (7-52) U/L Alkaline Phosphatase (34-104) U/L Ammonia 127 H (16-53) mol/L Troponin I (<0.04) ng/mL Total Protein (6.4-8.9) g/dL Albumin (3.2-5.2) g/dL Globulin (2-4) g/dL Albumin/Globulin Ratio (1-3) Urine Color Yellow Urine Appearance Clear Urine pH 6.0 (5-9) Ur Specific [place] 1.011 (1.010-1.030) Urine Protein Negative (Negative) Urine Ketones Negative (Negative) Urine Blood Negative (Negative) Urine Nitrate Negative (Negative) Urine Bilirubin Negative (Negative) Urine Urobilinogen Negative (Negative) Ur Leukocyte Esterase Negative (Negative) Urine Glucose Negative (Negative) Serum Alcohol (<10) mg/dL Microbiology and Other Data: Microbiology 07/25/16 11:50 Gram Stain - Final Body Fluid - Peritoneal Assess/Plan/Problems-Billing Assessment: Hepatic encephalopathy in a 76 yo M with hx of recently diagnosed cirrhosis (? autoimmune vs toxic), CKD4 - Patient Problems (1) Hepatic encephalopathy Current Visit: No Comment: Mental status improved. Will scale back Lactulose to 30 mg QID due to frequent diarrhea. Continue Rifaximin. No evidence of SBP on paracentesis. Stopped ABx. 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 Still awaiting report of slides from [place] to see if this may be autoimmunue in which trial of steroids could be started. Continue to hold diuretics with increasing creatinine. Some ascites present on US, would hold on repeat paracentesis until patient has more symptoms to try to reduce introduction of infection (3) Chronic kidney disease, stage IV (severe) Current Visit: No Comment: Creatinine continuing to trend up despite holding diuretics. Spoke with Dr. López. Will repeat renal electrolytes now (previous FeNa was <1% from 07/20). Will discuss further whether patient would benefit from MAO pending tests. Strict I/O (4) DVT prophylaxis Current Visit: No Comment: SCDs Status and Disposition: Inpatient for hepatic encephalopathy, recurrent ascites, CHAR on CKD
[2016-07-28] MEDS: Spironolactone TAB* 25 MG PO SCH (15:00)
[2016-07-28] MEDS: Octreotide Acetate* 100 MCG/ML 1 ML VIAL SUBCUT SCH ×2 (15:00→21:20)
[2016-07-28] MEDS: CMC:Midodrine (NF) 5 MG TAB PO SCH ×2 (15:00→21:20)
[2016-07-28] MEDS: Magic Mouth Was-BEN/MAAL/LIDO SWISH SPIT PRN ×2 (15:02→18:42)
--- NOTE | 2016-07-28 15:48 | CONS ---
NEPHROLOGY CONSULTATION: DATE OF CONSULT: DATE OF DICTATION: 07/28/16 HISTORY OF PRESENT ILLNESS: Mr. Lozano is a 76-year-old gentleman with a history of autoimmune cirrhosis. He presented because of a declining mental status. He had recently been admitted to the hospital because of decompensation of his liver disease, which was felt at that time to be secondary to dehydration. He has had some anorexia and nausea. He has not been having vomiting at the present time. He has been having easy fatigability. He has noticed a significant change in the color of the urine, which has been much darker than previously. Of significance, he tells me that he has not been taking any of his medications for the last 6 months including between these 2 hospitalizations; however, the notes say that his son was giving him his lactulose. Perhaps they do not feel that the lactulose is a medication. PAST MEDICAL HISTORY: Significant for: 1. Hepatic encephalopathy. 2. He has known stage 4 chronic kidney disease. 3. History of hypertension. 4. He has had a radical prostatectomy for prostate cancer in the past, and he is status post radiation. MEDICATIONS: His outpatient medications which apparently he was not taking included: 1. Tylenol 650 mg every 6 hours p.r.n. 2. Furosemide 20 mg daily. 3. Lactulose 30 mg t.i.d. 4. Amlodipine 5 mg daily. 5. Omeprazole 40 mg daily. 6. Spironolactone 25 mg daily. ALLERGIES: He has no medical allergies. FAMILY HISTORY: Significant in that his mother had coronary artery disease. His father had colorectal cancer. SOCIAL HISTORY: He is a former smoker, quitting 40 years ago. He has not had significant alcohol intake. REVIEW OF SYSTEMS: He has not had visual disturbances, no hearing difficulties , no swallowing difficulties. He has been cold most of the time. He has had no chest pain, no shortness of breath. He has not been having regular bowel movements. He has been having worsening edema and he states that he put on 40 pounds in the last couple of months. PHYSICAL EXAM: He is a chronically ill-appearing white gentleman. His blood pressure is 144/66 with a pulse of 94, respirations are 16. Interestingly enough, I did not think he has scleral icterus even though I already knew that his bilirubin was over 5. His pupils are reactive to light. His mucous membranes are moist. I could not see his neck veins. There are no carotid bruits. The chest is clear. Heart revealed a regular rhythm without murmurs. The abdomen is distended. I could not feel a liver margin, there was a positive fluid wave. Extremities reveal 3+ edema diffusely. Neurologic: He is alert and oriented, cooperative. He moves all 4 extremities. There was no asterixis. DIAGNOSTIC STUDIES/LAB DATA: Review of his laboratory studies reveals white count of 3.3, hemoglobin of 9.8, platelet count of 81,000. Sodium 134, potassium 3.6, total CO2 of 21, chloride 105, BUN 41, creatinine 5.07, glucose 118, albumin 2.1, calcium 9.4, magnesium 1.7. He had a urinary sodium on the 4th of less than 18, but the urinary sodium and potassium, and the fractional excretion of sodium have not come back on this occasion yet. IMPRESSION: 1. [id number] renal insufficiency. I would think the most likely culprit would be decreased effective intravascular plasma volume on the basis of dilated arteriovenous malformations. I did not see spider angiomata nor caput medusa and I did not see palmar erythema. Nevertheless, there certainly could be peripheral shunting of blood. He has had some hypokalemia in the past , which would be consistent. 2. Autoimmune hepatitis with cirrhosis and ascites. 3. History of hypertension. 4. 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 At the present time, I would get a urinary sodium and potassium. I think he should be on Aldactone and I would titrate the Aldactone dose until the urinary sodium and potassium concentrations reverse and I would not give him loop diuretics until that occurs. I will start him on midodrine and octreotide in order to improve hepatic and renal blood flow. If he decompensates further, I think there should be consideration of transfer to [facility] to the liver unit there. I have discussed the case with Dr. Farfan. [id number]/[facility] #: [id number] [facility]GD[facility] MEDICAL CENTERFransisco
[2016-07-29 06:25] LABS: Albumin 1.8 g/dL (3.2-5.2); BUN/Creatinine Ratio 7.9 (8-20); Calcium 8.7 mg/dL (8.6-10.3); EGFR African American 13.9 (>60); EGFR Non-African American 10.8 (>60); Globulin 4.1 g/dL (2-4); Potassium 3.7 mmol/L (3.5-5.0); Total Bilirubin 5.6 mg/dL (0.2-1.0); Total Protein 5.9 g/dL (6.4-8.9)
[2016-07-29] MEDS: Omeprazole CAP* 20 MG PO SCH (08:21)
[2016-07-29] MEDS: LACTULOSE* 30 ML UDC PO SCH ×4 (08:43→20:20)
[2016-07-29] MEDS: Spironolactone TAB* 25 MG PO SCH (08:43)
[2016-07-29] MEDS: RiFAXimin* 550 MG TAB PO SCH ×2 (08:43→20:19)
[2016-07-29] MEDS: Octreotide Acetate* 100 MCG/ML 1 ML VIAL SUBCUT SCH ×3 (08:44→20:19)
[2016-07-29] MEDS: CMC:Midodrine (NF) 5 MG TAB PO SCH ×3 (08:44→20:20)
--- NOTE | 2016-07-29 09:50 | PN ---
Subjective Date of Service: 07/29/16 Interval History: Seen and examined with at bedside Both feel mental status is back to baseline OOB and walked around unit 3 times yesterday 2 watery BMs overnight, none since this AM Appetite good, ate most of breakfast Family History: Unchanged from Admission Social History: Unchanged from Admission Past Medical History: Unchanged from Admission Objective Active Medications: Lactulose (Lactulose*) 30 ml PO QID [facility] Last Admin: 07/29/16 08:43 Dose: 30 ml Midodrine (Midodrine (Nf)) 5 mg PO TID [facility] PRN Reason: Protocol Last Admin: 07/29/16 08:44 Dose: 5 mg Multi-Ingredient Mouthwash/Gargle (Magic Mouth Was-Damian/Maal/Lido*) 5 ml SWISH SPIT QID PRN PRN Reason: Mouth discomfort Last Admin: 07/28/16 18:42 Dose: 5 ml Octreotide Acetate (Octreotide Acetate*) 100 mcg SUBCUT TID [facility] Last Admin: 07/29/16 08:44 Dose: 100 mcg Omeprazole (Prilosec Cap*) 40 mg PO DAILY@0730 [facility] Last Admin: 07/29/16 08:21 Dose: 40 mg Ondansetron HCl (Zofran Inj*) 4 mg IV Q6H PRN PRN Reason: NAUSEA Rifaximin (Xifaxan*) 550 mg PO BID [facility] Last Admin: 07/29/16 08:43 Dose: 550 mg Spironolactone (Aldactone Tab*) 25 mg PO DAILY [facility] Last Admin: 07/29/16 08:43 Dose: 25 mg Vital Signs 07/28/16 07/28/16 07/28/16 15:52 20:00 23:24 Temperature 98.4 F Pulse Rate 69 66 Respiratory 18 14 Rate Blood Pressure 140/61 156/63 (mmHg) O2 Sat by Pulse 98 98 Oximetry 07/29/16 08:01 Temperature 98.0 F Pulse Rate 66 Respiratory 14 Rate Blood Pressure 136/59 (mmHg) O2 Sat by Pulse 94 Oximetry Oxygen Devices in Use Now: None Appearance: sitting in chair, NAD Eyes: - - +scleral Ears/Nose/Mouth/Throat: Mucous Membranes Moist Neck: NL Appearance and Movements; NL JVP, Trachea Midline Respiratory: Symmetrical Chest Expansion and Respiratory Effort, Clear to Auscultation Cardiovascular: RRR Abdominal: - - soft, NTTP, mild distention, +bs Extremities: - - 3+ tense edema LE b/l Neurological: Alert and Oriented x 3 Result Diagrams: 07/24/16 16:33 07/29/16 05:51 Additional Lab and Data: Lab Results 07/24/16 07/24/16 07/24/16 Range/Units 16:33 16:33 16:33 WBC 3.3 L (3.5-10.8) 10^3/ul RBC 2.81 L (4.0-5.4) 10^6/ul Hgb 9.8 L (14.0-18.0) g/dl Hct 29 L (42-52) % MCV 102 H (80-94) fL MCH 35 H (27-31) pg MCHC 34 (31-36) g/dl RDW 19 H (10.5-15) % Plt Count 81 L (150-450) 10^3/ul MPV 9 (7.4-10.4) um3 Neut % (Auto) 59.4 (38-83) % Lymph % (Auto) 14.6 L (25-47) % Greene % (Auto) 19.6 H (1-9) % Eos % (Auto) 6.0 (0-6) % Baso % (Auto) 0.4 (0-2) % Absolute Neuts (auto) 2.0 (1.5-7.7) 10^3/ul Absolute Lymphs (auto) 0.5 L (1.0-4.8) 10^3/ul Absolute Monos (auto) 0.7 (0-0.8) 10^3/ul Absolute Eos (auto) 0.2 (0-0.6) 10^3/ul Absolute Basos (auto) 0 (0-0.2) 10^3/ul Absolute Nucleated RBC 0 10^3/ul Nucleated RBC % 0.1 INR (Anticoag Therapy) (0.89-1.11) Sodium 133 (133-145) mmol/L Potassium 4.2 (3.5-5.0) mmol/L Chloride 105 (101-111) mmol/L Carbon Dioxide 24 (22-32) mmol/L Anion Gap 4 (2-11) mmol/L BUN 35 H (6-24) mg/dL Creatinine 4.40 H (0.67-1.17) mg/dL Est GFR ( Amer) 16.9 (>60) Est GFR (Non-Af Amer) 13.1 (>60) BUN/Creatinine Ratio 8.0 (8-20) Glucose 111 H (70-100) mg/dL Lactic Acid 1.9 (0.5-2.0) mmol/L Calcium 9.1 (8.6-10.3) mg/dL Total Bilirubin 5.30 H (0.2-1.0) mg/dL AST 64 H (13-39) U/L ALT 55 H (7-52) U/L Alkaline Phosphatase 138 H (34-104) U/L Ammonia (16-53) mol/L Troponin I 0.05 H* (<0.04) ng/mL Total Protein 6.9 (6.4-8.9) g/dL Albumin 2.1 L (3.2-5.2) g/dL Globulin 4.8 H (2-4) g/dL Albumin/Globulin Ratio 0.4 L (1-3) Urine Color Urine Appearance Urine pH (5-9) Ur Specific [place] (1.010-1.030) Urine Protein (Negative) Urine Ketones (Negative) Urine Blood (Negative) Urine Nitrate (Negative) Urine Bilirubin (Negative) Urine Urobilinogen (Negative) Ur Leukocyte Esterase (Negative) Urine Glucose (Negative) Serum Alcohol < 10 (<10) mg/dL 07/24/16 07/24/16 07/24/16 Range/Units 16:33 16:33 18:20 WBC (3.5-10.8) 10^3/ul RBC (4.0-5.4) 10^6/ul Hgb (14.0-18.0) g/dl Hct (42-52) % MCV (80-94) fL MCH (27-31) pg MCHC (31-36) g/dl RDW (10.5-15) % Plt Count (150-450) 10^3/ul MPV (7.4-10.4) um3 Neut % (Auto) (38-83) % Lymph % (Auto) (25-47) % Greene % (Auto) (1-9) % Eos % (Auto) (0-6) % Baso % (Auto) (0-2) % Absolute Neuts (auto) (1.5-7.7) 10^3/ul Absolute Lymphs (auto) (1.0-4.8) 10^3/ul Absolute Monos (auto) (0-0.8) 10^3/ul Absolute Eos (auto) (0-0.6) 10^3/ul Absolute Basos (auto) (0-0.2) 10^3/ul Absolute Nucleated RBC 10^3/ul Nucleated RBC % INR (Anticoag Therapy) 1.88 H (0.89-1.11) Sodium (133-145) mmol/L Potassium (3.5-5.0) mmol/L Chloride (101-111) mmol/L Carbon Dioxide (22-32) mmol/L Anion Gap (2-11) mmol/L BUN (6-24) mg/dL Creatinine (0.67-1.17) mg/dL Est GFR ( Amer) (>60) Est GFR (Non-Af Amer) (>60) BUN/Creatinine Ratio (8-20) Glucose (70-100) mg/dL Lactic Acid (0.5-2.0) mmol/L Calcium (8.6-10.3) mg/dL Total Bilirubin (0.2-1.0) mg/dL AST (13-39) U/L ALT (7-52) U/L Alkaline Phosphatase (34-104) U/L Ammonia 127 H (16-53) mol/L Troponin I (<0.04) ng/mL Total Protein (6.4-8.9) g/dL Albumin (3.2-5.2) g/dL Globulin (2-4) g/dL Albumin/Globulin Ratio (1-3) Urine Color Yellow Urine Appearance Clear Urine pH 6.0 (5-9) Ur Specific [place] 1.011 (1.010-1.030) Urine Protein Negative (Negative) Urine Ketones Negative (Negative) Urine Blood Negative (Negative) Urine Nitrate Negative (Negative) Urine Bilirubin Negative (Negative) Urine Urobilinogen Negative (Negative) Ur Leukocyte Esterase Negative (Negative) Urine Glucose Negative (Negative) Serum Alcohol (<10) mg/dL Microbiology and Other Data: Microbiology 07/25/16 11:50 Gram Stain - Final Body Fluid - Peritoneal Assess/Plan/Problems-Billing Assessment: Hepatic encephalopathy in a 76 yo M with hx of recently diagnosed cirrhosis (? autoimmune vs toxic), CKD4 - Patient Problems (1) Hepatic encephalopathy Comment: Mental status baseline Lactulose decreased to 30 mg QID 2/2 loose stools Continue Rifaximin. No evidence of SBP on paracentesis. Stopped ABx. (2) Chronic kidney disease, stage IV (severe) Comment: Creatinine continuing to trend up despite holding diuretics. Appreciate nephrology c/s midodrine and octreotide started spinolactone and titrate bsaed on urine Na and K can consider albumin challenege torule out or in hepatorenal syndrome if worsens on new addition of medications (3) Cryptogenic cirrhosis Comment: Appreciate GI assistance. Still awaiting report of slides from [place] to see if this may be autoimmunue in which trial of steroids could be started. Continue to hold diuretics with increasing creatinine. Some ascites present on US, would hold on repeat paracentesis until patient has more symptoms to try to reduce introduction of infection (4) DVT prophylaxis Comment: SCDs Status and Disposition: Inpatient for hepatic encephalopathy, recurrent ascites, CHAR on CKD
[2016-07-29] MEDS: Magic Mouth Was-BEN/MAAL/LIDO SWISH SPIT PRN (12:53)
[2016-07-30 07:01] LABS: Hematocrit 25 % (42-52); Hemoglobin 8.6 g/dl (14.0-18.0); Mean Corpuscular HGB Conc 34 g/dl (31-36); Mean Corpuscular Hemoglobin 36 pg (27-31); Mean Platelet Volume 9 um3 (7.4-10.4); Red Blood Count 2.39 10^6/ul (4.0-5.4); Red Cell Distribution Width 19 % (10.5-15); White Blood Count 4.2 10^3/ul (3.5-10.8)
[2016-07-30 07:08] LABS: Comments Flag Yes; Mean Corpuscular Volume 106 fL (80-94)
[2016-07-30 07:14] LABS: Albumin 1.9 g/dL (3.2-5.2); BUN/Creatinine Ratio 7.8 (8-20); Calcium 8.6 mg/dL (8.6-10.3); Direct Bilirubin 2.9 mg/dL (0.03-0.18); EGFR African American 13.8 (>60); EGFR Non-African American 10.7 (>60); Globulin 4.2 g/dL (2-4); Indirect Bilirubin 3.3 mg/dL (0.3-1.0); Potassium 3.7 mmol/L (3.5-5.0); Total Bilirubin 6.2 mg/dL (0.2-1.0); Total Protein 6.1 g/dL (6.4-8.9)
[2016-07-30] MEDS: Omeprazole CAP* 20 MG PO SCH (07:47)
[2016-07-30] MEDS: LACTULOSE* 30 ML UDC PO SCH ×4 (09:04→23:54)
[2016-07-30] MEDS: RiFAXimin* 550 MG TAB PO SCH ×2 (09:04→23:54)
[2016-07-30] MEDS: Octreotide Acetate* 100 MCG/ML 1 ML VIAL SUBCUT SCH ×3 (09:05→23:52)
[2016-07-30] MEDS: CMC:Midodrine (NF) 5 MG TAB PO SCH ×3 (09:05→23:54)
[2016-07-30] MEDS: Spironolactone TAB* 25 MG PO SCH ×2 (09:05→23:51)
[2016-07-30] MEDS: Magic Mouth Was-BEN/MAAL/LIDO SWISH SPIT PRN (12:47)
--- NOTE | 2016-07-30 14:00 | PN ---
Subjective Date of Service: 07/30/16 Interval History: pt feels tired. Legs with unchanged edema Family History: Unchanged from Admission Social History: Unchanged from Admission Past Medical History: Unchanged from Admission Objective Active Medications: Lactulose (Lactulose*) 30 ml PO QID [facility] Last Admin: 07/30/16 12:46 Dose: 30 ml Midodrine (Midodrine (Nf)) 5 mg PO TID [facility] PRN Reason: Protocol Last Admin: 07/30/16 09:05 Dose: 5 mg Multi-Ingredient Mouthwash/Gargle (Magic Mouth Was-Damian/Maal/Lido*) 5 ml SWISH SPIT QID PRN PRN Reason: Mouth discomfort Last Admin: 07/30/16 12:47 Dose: 5 ml Octreotide Acetate (Octreotide Acetate*) 100 mcg SUBCUT TID [facility] Last Admin: 07/30/16 09:05 Dose: 100 mcg Omeprazole (Prilosec Cap*) 40 mg PO DAILY@0730 [facility] Last Admin: 07/30/16 07:47 Dose: 40 mg Ondansetron HCl (Zofran Inj*) 4 mg IV Q6H PRN PRN Reason: NAUSEA Rifaximin (Xifaxan*) 550 mg PO BID [facility] Last Admin: 07/30/16 09:04 Dose: 550 mg Spironolactone (Aldactone Tab*) 25 mg PO BID [facility] Vital Signs 07/29/16 07/29/16 07/29/16 16:09 20:00 23:28 Temperature 97.8 F 97.9 F Pulse Rate 82 63 Respiratory 18 16 Rate Blood Pressure 135/71 139/63 (mmHg) O2 Sat by Pulse 95 92 Oximetry 07/30/16 07/30/16 07:42 08:00 Temperature 97.6 F Pulse Rate 64 Respiratory 16 16 Rate Blood Pressure 145/57 (mmHg) O2 Sat by Pulse 95 Oximetry Oxygen Devices in Use Now: None Appearance: 76 yo M in nAD, AAOx3, appears fatigued Eyes: PERRLA, - - scleral icterus Ears/Nose/Mouth/Throat: NL Teeth, Lips, Gums, Mucous Membranes Moist Neck: NL Appearance and Movements; NL JVP, Trachea Midline Respiratory: Symmetrical Chest Expansion and Respiratory Effort, Clear to Auscultation Cardiovascular: NL Sounds; No Murmurs; No JVD, RRR Abdominal: NL Sounds; No Tenderness; No Distention, - - mild ascites present Lymphatic: No Cervical Adenopathy Extremities: No Clubbing, Cyanosis, - - +2 pitting pedal edema Skin: No Rash or Ulcers, No Nodules or Sclerosis Neurological: Alert and Oriented x 3, NL Muscle Strength and Tone, - - asterixis present Result Diagrams: 07/30/16 06:29 07/30/16 06:29 Additional Lab and Data: Lab Results 07/24/16 07/24/16 07/24/16 Range/Units 16:33 16:33 16:33 WBC 3.3 L (3.5-10.8) 10^3/ul RBC 2.81 L (4.0-5.4) 10^6/ul Hgb 9.8 L (14.0-18.0) g/dl Hct 29 L (42-52) % MCV 102 H (80-94) fL MCH 35 H (27-31) pg MCHC 34 (31-36) g/dl RDW 19 H (10.5-15) % Plt Count 81 L (150-450) 10^3/ul MPV 9 (7.4-10.4) um3 Neut % (Auto) 59.4 (38-83) % Lymph % (Auto) 14.6 L (25-47) % [place] % (Auto) 19.6 H (1-9) % Eos % (Auto) 6.0 (0-6) % Baso % (Auto) 0.4 (0-2) % Absolute Neuts (auto) 2.0 (1.5-7.7) 10^3/ul Absolute Lymphs (auto) 0.5 L (1.0-4.8) 10^3/ul Absolute Monos (auto) 0.7 (0-0.8) 10^3/ul Absolute Eos (auto) 0.2 (0-0.6) 10^3/ul Absolute Basos (auto) 0 (0-0.2) 10^3/ul Absolute Nucleated RBC 0 10^3/ul Nucleated RBC % 0.1 INR (Anticoag Therapy) (0.89-1.11) Sodium 133 (133-145) mmol/L Potassium 4.2 (3.5-5.0) mmol/L Chloride 105 (101-111) mmol/L Carbon Dioxide 24 (22-32) mmol/L Anion Gap 4 (2-11) mmol/L BUN 35 H (6-24) mg/dL Creatinine 4.40 H (0.67-1.17) mg/dL Est GFR ( Amer) 16.9 (>60) Est GFR (Non-Af Amer) 13.1 (>60) BUN/Creatinine Ratio 8.0 (8-20) Glucose 111 H (70-100) mg/dL Lactic Acid 1.9 (0.5-2.0) mmol/L Calcium 9.1 (8.6-10.3) mg/dL Total Bilirubin 5.30 H (0.2-1.0) mg/dL AST 64 H (13-39) U/L ALT 55 H (7-52) U/L Alkaline Phosphatase 138 H (34-104) U/L Ammonia (16-53) mol/L Troponin I 0.05 H* (<0.04) ng/mL Total Protein 6.9 (6.4-8.9) g/dL Albumin 2.1 L (3.2-5.2) g/dL Globulin 4.8 H (2-4) g/dL Albumin/Globulin Ratio 0.4 L (1-3) Urine Color Urine Appearance Urine pH (5-9) Ur Specific [place] (1.010-1.030) Urine Protein (Negative) Urine Ketones (Negative) Urine Blood (Negative) Urine Nitrate (Negative) Urine Bilirubin (Negative) Urine Urobilinogen (Negative) Ur Leukocyte Esterase (Negative) Urine Glucose (Negative) Serum Alcohol < 10 (<10) mg/dL 07/24/16 07/24/16 07/24/16 Range/Units 16:33 16:33 18:20 WBC (3.5-10.8) 10^3/ul RBC (4.0-5.4) 10^6/ul Hgb (14.0-18.0) g/dl Hct (42-52) % MCV (80-94) fL MCH (27-31) pg MCHC (31-36) g/dl RDW (10.5-15) % Plt Count (150-450) 10^3/ul MPV (7.4-10.4) um3 Neut % (Auto) (38-83) % Lymph % (Auto) (25-47) % [place] % (Auto) (1-9) % Eos % (Auto) (0-6) % Baso % (Auto) (0-2) % Absolute Neuts (auto) (1.5-7.7) 10^3/ul Absolute Lymphs (auto) (1.0-4.8) 10^3/ul Absolute Monos (auto) (0-0.8) 10^3/ul Absolute Eos (auto) (0-0.6) 10^3/ul Absolute Basos (auto) (0-0.2) 10^3/ul Absolute Nucleated RBC 10^3/ul Nucleated RBC % INR (Anticoag Therapy) 1.88 H (0.89-1.11) Sodium (133-145) mmol/L Potassium (3.5-5.0) mmol/L Chloride (101-111) mmol/L Carbon Dioxide (22-32) mmol/L Anion Gap (2-11) mmol/L BUN (6-24) mg/dL Creatinine (0.67-1.17) mg/dL Est GFR ( Amer) (>60) Est GFR (Non-Af Amer) (>60) BUN/Creatinine Ratio (8-20) Glucose (70-100) mg/dL Lactic Acid (0.5-2.0) mmol/L Calcium (8.6-10.3) mg/dL Total Bilirubin (0.2-1.0) mg/dL AST (13-39) U/L ALT (7-52) U/L Alkaline Phosphatase (34-104) U/L Ammonia 127 H (16-53) mol/L Troponin I (<0.04) ng/mL Total Protein (6.4-8.9) g/dL Albumin (3.2-5.2) g/dL Globulin (2-4) g/dL Albumin/Globulin Ratio (1-3) Urine Color Yellow Urine Appearance Clear Urine pH 6.0 (5-9) Ur Specific [place] 1.011 (1.010-1.030) Urine Protein Negative (Negative) Urine Ketones Negative (Negative) Urine Blood Negative (Negative) Urine Nitrate Negative (Negative) Urine Bilirubin Negative (Negative) Urine Urobilinogen Negative (Negative) Ur Leukocyte Esterase Negative (Negative) Urine Glucose Negative (Negative) Serum Alcohol (<10) mg/dL Microbiology and Other Data: Microbiology 07/25/16 11:50 Gram Stain - Final Body Fluid - Peritoneal Assess/Plan/Problems-Billing Assessment: Hepatic encephalopathy in a 76 yo M with hx of recently diagnosed cirrhosis (? autoimmune vs toxic), CKD4 - Patient Problems (1) Hepatic encephalopathy Comment: Mental status baseline Lactulose cont Continue Rifaximin. No evidence of SBP on paracentesis. Stopped ABx. (2) Cryptogenic cirrhosis Comment: Appreciate GI assistance. Still awaiting report of slides from [place] to see if this may be autoimmunue in which trial of steroids could be started. Continue to hold diuretics with increasing creatinine. (3) Chronic kidney disease, stage IV (severe) Comment: Creatinine continuing to trend up despite holding diuretics, but at a slower rate. d/w Dr. López-will increase Aldactone to BID cont midodrine and octreotide Suspectr hepato-renal syndrome. GI discussed case with transplant Center at [place]. No need to transfer for liver transplant, but pt was accepted and placed on a list for medical transfer-may take days. (4) DVT prophylaxis Comment: SCDs, no pharmaxcologic prophylaxis due to thrombocytopenia Status and Disposition: Inpatient for hepatic encephalopathy, recurrent ascites, CHAR on CKD
[2016-07-31 07:00] LABS: Hematocrit 25 % (42-52); Hemoglobin 8.6 g/dl (14.0-18.0); Mean Corpuscular HGB Conc 34 g/dl (31-36); Mean Corpuscular Hemoglobin 36 pg (27-31); Mean Platelet Volume 10 um3 (7.4-10.4); Red Blood Count 2.37 10^6/ul (4.0-5.4); Red Cell Distribution Width 19 % (10.5-15); White Blood Count 4.9 10^3/ul (3.5-10.8)
[2016-07-31 07:01] LABS: Comments Flag Yes; Mean Corpuscular Volume 107 fL (80-94)
[2016-07-31 07:14] LABS: Albumin 1.8 g/dL (3.2-5.2); BUN/Creatinine Ratio 8.1 (8-20); Calcium 8.6 mg/dL (8.6-10.3); EGFR Non-African American 10.9 (>60); Globulin 4.4 g/dL (2-4); Phosphorus 4.1 mg/dL (2.5-5.0); Potassium 3.9 mmol/L (3.5-5.0); Total Bilirubin 5.8 mg/dL (0.2-1.0); Total Protein 6.2 g/dL (6.4-8.9)
[2016-07-31] MEDS: Omeprazole CAP* 20 MG PO SCH (07:51)
[2016-07-31] MEDS: Spironolactone TAB* 25 MG PO SCH ×2 (08:59→21:17)
[2016-07-31] MEDS: RiFAXimin* 550 MG TAB PO SCH ×2 (08:59→21:16)
[2016-07-31] MEDS: LACTULOSE* 30 ML UDC PO SCH ×4 (08:59→21:16)
[2016-07-31] MEDS: CMC:Midodrine (NF) 5 MG TAB PO SCH ×3 (08:59→21:16)
[2016-07-31] MEDS: Octreotide Acetate* 100 MCG/ML 1 ML VIAL SUBCUT SCH ×3 (08:59→21:19)
--- NOTE | 2016-07-31 18:54 | PN ---
Subjective Date of Service: 07/31/16 Interval History: No new c/o. Walked in [place] 3 times today. He had 2 BM's today. He feels his abd bloating and pedal edema are both better. Family History: Unchanged from Admission Social History: Unchanged from Admission Past Medical History: Unchanged from Admission Objective Active Medications: Lactulose (Lactulose*) 30 ml PO QID [facility] Last Admin: 07/31/16 17:34 Dose: 30 ml Midodrine (Midodrine (Nf)) 5 mg PO TID [facility] PRN Reason: Protocol Last Admin: 07/31/16 14:11 Dose: 5 mg Multi-Ingredient Mouthwash/Gargle (Magic Mouth Was-Damian/Maal/Lido*) 5 ml SWISH SPIT QID PRN PRN Reason: Mouth discomfort Last Admin: 07/30/16 12:47 Dose: 5 ml Octreotide Acetate (Octreotide Acetate*) 100 mcg SUBCUT TID [facility] Last Admin: 07/31/16 14:11 Dose: 100 mcg Omeprazole (Prilosec Cap*) 40 mg PO DAILY@0730 [facility] Last Admin: 07/31/16 07:51 Dose: 40 mg Ondansetron HCl (Zofran Inj*) 4 mg IV Q6H PRN PRN Reason: NAUSEA Rifaximin (Xifaxan*) 550 mg PO BID [facility] Last Admin: 07/31/16 08:59 Dose: 550 mg Spironolactone (Aldactone Tab*) 25 mg PO BID [facility] Last Admin: 07/31/16 08:59 Dose: 25 mg Vital Signs 07/30/16 07/30/16 07/31/16 23:54 23:55 07:43 Temperature 98.1 F 97.9 F Pulse Rate 79 65 Respiratory 16 18 Rate Blood Pressure 127/66 132/63 (mmHg) O2 Sat by Pulse 95 97 Oximetry 07/31/16 07/31/16 08:00 16:03 Temperature 98.2 F Pulse Rate 60 Respiratory 18 17 Rate Blood Pressure 113/53 (mmHg) O2 Sat by Pulse 94 Oximetry Oxygen Devices in Use Now: None Appearance: Alert, in recliner chair with both legs elevated. In fair spirits. Looks ocmfortable. Eyes: - - mild icterus Ears/Nose/Mouth/Throat: Clear Oropharnyx, Mucous Membranes Moist Neck: NL Appearance and Movements; NL JVP, No Thyroid Enlargement, Masses Abdominal: No Hepatosplenomegaly, - - Not tender. Nl BS. Mod distended. Extremities: No Clubbing, Cyanosis, - - 2-3+ edema BL Neurological: Alert and Oriented x 3, NL Sensation Result Diagrams: 07/31/16 06:50 07/31/16 06:50 Additional Lab and Data: Lab Results 07/24/16 07/24/16 07/24/16 Range/Units 16:33 16:33 16:33 WBC 3.3 L (3.5-10.8) 10^3/ul RBC 2.81 L (4.0-5.4) 10^6/ul Hgb 9.8 L (14.0-18.0) g/dl Hct 29 L (42-52) % MCV 102 H (80-94) fL MCH 35 H (27-31) pg MCHC 34 (31-36) g/dl RDW 19 H (10.5-15) % Plt Count 81 L (150-450) 10^3/ul MPV 9 (7.4-10.4) um3 Neut % (Auto) 59.4 (38-83) % Lymph % (Auto) 14.6 L (25-47) % [place] % (Auto) 19.6 H (1-9) % Eos % (Auto) 6.0 (0-6) % Baso % (Auto) 0.4 (0-2) % Absolute Neuts (auto) 2.0 (1.5-7.7) 10^3/ul Absolute Lymphs (auto) 0.5 L (1.0-4.8) 10^3/ul Absolute Monos (auto) 0.7 (0-0.8) 10^3/ul Absolute Eos (auto) 0.2 (0-0.6) 10^3/ul Absolute Basos (auto) 0 (0-0.2) 10^3/ul Absolute Nucleated RBC 0 10^3/ul Nucleated RBC % 0.1 INR (Anticoag Therapy) (0.89-1.11) Sodium 133 (133-145) mmol/L Potassium 4.2 (3.5-5.0) mmol/L Chloride 105 (101-111) mmol/L Carbon Dioxide 24 (22-32) mmol/L Anion Gap 4 (2-11) mmol/L BUN 35 H (6-24) mg/dL Creatinine 4.40 H (0.67-1.17) mg/dL Est GFR ( Amer) 16.9 (>60) Est GFR (Non-Af Amer) 13.1 (>60) BUN/Creatinine Ratio 8.0 (8-20) Glucose 111 H (70-100) mg/dL Lactic Acid 1.9 (0.5-2.0) mmol/L Calcium 9.1 (8.6-10.3) mg/dL Total Bilirubin 5.30 H (0.2-1.0) mg/dL AST 64 H (13-39) U/L ALT 55 H (7-52) U/L Alkaline Phosphatase 138 H (34-104) U/L Ammonia (16-53) mol/L Troponin I 0.05 H* (<0.04) ng/mL Total Protein 6.9 (6.4-8.9) g/dL Albumin 2.1 L (3.2-5.2) g/dL Globulin 4.8 H (2-4) g/dL Albumin/Globulin Ratio 0.4 L (1-3) Urine Color Urine Appearance Urine pH (5-9) Ur Specific [place] (1.010-1.030) Urine Protein (Negative) Urine Ketones (Negative) Urine Blood (Negative) Urine Nitrate (Negative) Urine Bilirubin (Negative) Urine Urobilinogen (Negative) Ur Leukocyte Esterase (Negative) Urine Glucose (Negative) Serum Alcohol < 10 (<10) mg/dL 07/24/16 07/24/16 07/24/16 Range/Units 16:33 16:33 18:20 WBC (3.5-10.8) 10^3/ul RBC (4.0-5.4) 10^6/ul Hgb (14.0-18.0) g/dl Hct (42-52) % MCV (80-94) fL MCH (27-31) pg MCHC (31-36) g/dl RDW (10.5-15) % Plt Count (150-450) 10^3/ul MPV (7.4-10.4) um3 Neut % (Auto) (38-83) % Lymph % (Auto) (25-47) % [place] % (Auto) (1-9) % Eos % (Auto) (0-6) % Baso % (Auto) (0-2) % Absolute Neuts (auto) (1.5-7.7) 10^3/ul Absolute Lymphs (auto) (1.0-4.8) 10^3/ul Absolute Monos (auto) (0-0.8) 10^3/ul Absolute Eos (auto) (0-0.6) 10^3/ul Absolute Basos (auto) (0-0.2) 10^3/ul Absolute Nucleated RBC 10^3/ul Nucleated RBC % INR (Anticoag Therapy) 1.88 H (0.89-1.11) Sodium (133-145) mmol/L Potassium (3.5-5.0) mmol/L Chloride (101-111) mmol/L Carbon Dioxide (22-32) mmol/L Anion Gap (2-11) mmol/L BUN (6-24) mg/dL Creatinine (0.67-1.17) mg/dL Est GFR ( Amer) (>60) Est GFR (Non-Af Amer) (>60) BUN/Creatinine Ratio (8-20) Glucose (70-100) mg/dL Lactic Acid (0.5-2.0) mmol/L Calcium (8.6-10.3) mg/dL Total Bilirubin (0.2-1.0) mg/dL AST (13-39) U/L ALT (7-52) U/L Alkaline Phosphatase (34-104) U/L Ammonia 127 H (16-53) mol/L Troponin I (<0.04) ng/mL Total Protein (6.4-8.9) g/dL Albumin (3.2-5.2) g/dL Globulin (2-4) g/dL Albumin/Globulin Ratio (1-3) Urine Color Yellow Urine Appearance Clear Urine pH 6.0 (5-9) Ur Specific [place] 1.011 (1.010-1.030) Urine Protein Negative (Negative) Urine Ketones Negative (Negative) Urine Blood Negative (Negative) Urine Nitrate Negative (Negative) Urine Bilirubin Negative (Negative) Urine Urobilinogen Negative (Negative) Ur Leukocyte Esterase Negative (Negative) Urine Glucose Negative (Negative) Serum Alcohol (<10) mg/dL Microbiology and Other Data: Microbiology 07/25/16 11:50 Gram Stain - Final Body Fluid - Peritoneal Assess/Plan/Problems-Billing Assessment: Hepatic encephalopathy in a 76 yo M with hx of recently diagnosed cirrhosis (? autoimmune vs toxic), CKD4 - Patient Problems (1) Cryptogenic cirrhosis Current Visit: Yes Status: Acute Code(s): K74.69 - OTHER CIRRHOSIS OF LIVER SNOMED Code(s): 67976189 Comment: Appreciate GI assistance. Still awaiting report of slides from [place] to see if this may be autoimmunue in which trial of steroids could be started. Continue rifaximin, lactulose, spironolactone, midodrone, octreotide. Plan CMP 08/02 or 08/03. Pt advised to moderat his fluid intake. (2) Chronic kidney disease, stage IV (severe) Current Visit: Yes Status: Acute Code(s): N18.4 - CHRONIC KIDNEY DISEASE, STAGE 4 (SEVERE) SNOMED Code(s): 416607233 Comment: Stable for several day. Suspect hepato-renal syndrome. GI discussed case with transplant Center at [place]. No need to transfer for liver transplant, but pt was accepted and placed on a list for medical transfer-may take days. Status and Disposition: Inpatient for hepatic encephalopathy, recurrent ascites, CHAR on CKD
[2016-07-31] MEDS: Magic Mouth Was-BEN/MAAL/LIDO SWISH SPIT PRN (23:07)
[2016-08-01] MEDS: Omeprazole CAP* 20 MG PO SCH (07:42)
[2016-08-01] MEDS: Spironolactone TAB* 25 MG PO SCH (08:52)
[2016-08-01] MEDS: CMC:Midodrine (NF) 5 MG TAB PO SCH ×2 (08:52→13:44)
[2016-08-01] MEDS: LACTULOSE* 30 ML UDC PO SCH ×3 (08:52→17:44)
[2016-08-01] MEDS: RiFAXimin* 550 MG TAB PO SCH (08:52)
[2016-08-01] MEDS: Octreotide Acetate* 100 MCG/ML 1 ML VIAL SUBCUT SCH ×2 (08:53→13:44)
[2016-08-01] MEDS: Magic Mouth Was-BEN/MAAL/LIDO SWISH SPIT PRN (08:53)
[2016-08-01 11:43] LABS: Urine Random Potassium 25.2 mmol/L
[2016-08-01 15:41] VITALS: BP 132/54
--- NOTE | 2016-08-01 18:11 | DCNOTE ---
Subjective Date of Service: 08/01/16 Interval History: Feeling well, thinks his bloating and edema alre slowly diminishing. No new c/ o. Family History: Unchanged from Admission Social History: Unchanged from Admission Past Medical History: Unchanged from Admission Objective Active Medications: Lactulose (Lactulose*) 30 ml PO QID [facility] Last Admin: 08/01/16 17:44 Dose: Not Given Midodrine (Midodrine (Nf)) 5 mg PO TID [facility] PRN Reason: Protocol Last Admin: 08/01/16 13:44 Dose: 5 mg Multi-Ingredient Mouthwash/Gargle (Magic Mouth Was-Damian/Maal/Lido*) 5 ml SWISH SPIT QID PRN PRN Reason: Mouth discomfort Last Admin: 08/01/16 08:53 Dose: 5 ml Octreotide Acetate (Octreotide Acetate*) 100 mcg SUBCUT TID [facility] Last Admin: 08/01/16 13:44 Dose: 100 mcg Omeprazole (Prilosec Cap*) 40 mg PO DAILY@0730 [facility] Last Admin: 08/01/16 07:42 Dose: 40 mg Ondansetron HCl (Zofran Inj*) 4 mg IV Q6H PRN PRN Reason: NAUSEA Rifaximin (Xifaxan*) 550 mg PO BID [facility] Last Admin: 08/01/16 08:52 Dose: 550 mg Spironolactone (Aldactone Tab*) 25 mg PO BID [facility] Last Admin: 08/01/16 08:52 Dose: 25 mg Vital Signs 07/31/16 08/01/16 08/01/16 20:00 05:55 07:40 Temperature 97.9 F Pulse Rate 71 Respiratory 18 16 16 Rate Blood Pressure 120/59 (mmHg) O2 Sat by Pulse 97 Oximetry 08/01/16 08/01/16 08/01/16 07:47 08:02 15:09 Temperature 98 F 97.5 F Pulse Rate 71 57 Respiratory 20 16 Rate Blood Pressure 146/44 132/54 (mmHg) O2 Sat by Pulse 95 97 Oximetry Oxygen Devices in Use Now: None Appearance: Alert, in recliner chair, legs only partly elevated. In good spirits, looks comfortable. Eyes: - - mild icterus Extremities: No Clubbing, Cyanosis, - - 2+ edema BL Skin: No Rash or Ulcers, No Nodules or Sclerosis Neurological: Alert and Oriented x 3, NL Sensation Result Diagrams: 07/31/16 06:50 07/31/16 06:50 Additional Lab and Data: Lab Results 07/24/16 07/24/16 07/24/16 Range/Units 16:33 16:33 16:33 WBC 3.3 L (3.5-10.8) 10^3/ul RBC 2.81 L (4.0-5.4) 10^6/ul Hgb 9.8 L (14.0-18.0) g/dl Hct 29 L (42-52) % MCV 102 H (80-94) fL MCH 35 H (27-31) pg MCHC 34 (31-36) g/dl RDW 19 H (10.5-15) % Plt Count 81 L (150-450) 10^3/ul MPV 9 (7.4-10.4) um3 Neut % (Auto) 59.4 (38-83) % Lymph % (Auto) 14.6 L (25-47) % [place] % (Auto) 19.6 H (1-9) % Eos % (Auto) 6.0 (0-6) % Baso % (Auto) 0.4 (0-2) % Absolute Neuts (auto) 2.0 (1.5-7.7) 10^3/ul Absolute Lymphs (auto) 0.5 L (1.0-4.8) 10^3/ul Absolute Monos (auto) 0.7 (0-0.8) 10^3/ul Absolute Eos (auto) 0.2 (0-0.6) 10^3/ul Absolute Basos (auto) 0 (0-0.2) 10^3/ul Absolute Nucleated RBC 0 10^3/ul Nucleated RBC % 0.1 INR (Anticoag Therapy) (0.89-1.11) Sodium 133 (133-145) mmol/L Potassium 4.2 (3.5-5.0) mmol/L Chloride 105 (101-111) mmol/L Carbon Dioxide 24 (22-32) mmol/L Anion Gap 4 (2-11) mmol/L BUN 35 H (6-24) mg/dL Creatinine 4.40 H (0.67-1.17) mg/dL Est GFR ( Amer) 16.9 (>60) Est GFR (Non-Af Amer) 13.1 (>60) BUN/Creatinine Ratio 8.0 (8-20) Glucose 111 H (70-100) mg/dL Lactic Acid 1.9 (0.5-2.0) mmol/L Calcium 9.1 (8.6-10.3) mg/dL Total Bilirubin 5.30 H (0.2-1.0) mg/dL AST 64 H (13-39) U/L ALT 55 H (7-52) U/L Alkaline Phosphatase 138 H (34-104) U/L Ammonia (16-53) mol/L Troponin I 0.05 H* (<0.04) ng/mL Total Protein 6.9 (6.4-8.9) g/dL Albumin 2.1 L (3.2-5.2) g/dL Globulin 4.8 H (2-4) g/dL Albumin/Globulin Ratio 0.4 L (1-3) Urine Color Urine Appearance Urine pH (5-9) Ur Specific [place] (1.010-1.030) Urine Protein (Negative) Urine Ketones (Negative) Urine Blood (Negative) Urine Nitrate (Negative) Urine Bilirubin (Negative) Urine Urobilinogen (Negative) Ur Leukocyte Esterase (Negative) Urine Glucose (Negative) Serum Alcohol < 10 (<10) mg/dL 07/24/16 07/24/16 07/24/16 Range/Units 16:33 16:33 18:20 WBC (3.5-10.8) 10^3/ul RBC (4.0-5.4) 10^6/ul Hgb (14.0-18.0) g/dl Hct (42-52) % MCV (80-94) fL MCH (27-31) pg MCHC (31-36) g/dl RDW (10.5-15) % Plt Count (150-450) 10^3/ul MPV (7.4-10.4) um3 Neut % (Auto) (38-83) % Lymph % (Auto) (25-47) % [place] % (Auto) (1-9) % Eos % (Auto) (0-6) % Baso % (Auto) (0-2) % Absolute Neuts (auto) (1.5-7.7) 10^3/ul Absolute Lymphs (auto) (1.0-4.8) 10^3/ul Absolute Monos (auto) (0-0.8) 10^3/ul Absolute Eos (auto) (0-0.6) 10^3/ul Absolute Basos (auto) (0-0.2) 10^3/ul Absolute Nucleated RBC 10^3/ul Nucleated RBC % INR (Anticoag Therapy) 1.88 H (0.89-1.11) Sodium (133-145) mmol/L Potassium (3.5-5.0) mmol/L Chloride (101-111) mmol/L Carbon Dioxide (22-32) mmol/L Anion Gap (2-11) mmol/L BUN (6-24) mg/dL Creatinine (0.67-1.17) mg/dL Est GFR ( Amer) (>60) Est GFR (Non-Af Amer) (>60) BUN/Creatinine Ratio (8-20) Glucose (70-100) mg/dL Lactic Acid (0.5-2.0) mmol/L Calcium (8.6-10.3) mg/dL Total Bilirubin (0.2-1.0) mg/dL AST (13-39) U/L ALT (7-52) U/L Alkaline Phosphatase (34-104) U/L Ammonia 127 H (16-53) mol/L Troponin I (<0.04) ng/mL Total Protein (6.4-8.9) g/dL Albumin (3.2-5.2) g/dL Globulin (2-4) g/dL Albumin/Globulin Ratio (1-3) Urine Color Yellow Urine Appearance Clear Urine pH 6.0 (5-9) Ur Specific [place] 1.011 (1.010-1.030) Urine Protein Negative (Negative) Urine Ketones Negative (Negative) Urine Blood Negative (Negative) Urine Nitrate Negative (Negative) Urine Bilirubin Negative (Negative) Urine Urobilinogen Negative (Negative) Ur Leukocyte Esterase Negative (Negative) Urine Glucose Negative (Negative) Serum Alcohol (<10) mg/dL Microbiology and Other Data: Microbiology 07/25/16 11:50 Gram Stain - Final Body Fluid - Peritoneal Assess/Plan/Problems-Billing Assessment: Hepatic encephalopathy in a 76 yo M with hx of recently diagnosed cirrhosis (? autoimmune vs toxic), CKD4 - Patient Problems (1) Cryptogenic cirrhosis Current Visit: Yes Status: Acute Code(s): K74.69 - OTHER CIRRHOSIS OF LIVER SNOMED Code(s): 42015102 Comment: Consult report from [facility] expected early next week per lab staff. Continue rifaximin, lactulose, spironolactone, midodrone, octreotide. Plan [facility] 08/02 as outpt. SO will give sq octrotide, pre-filled amps given, 12 from hospital and 90 from [facility]. (2) Chronic kidney disease, stage IV (severe) Current Visit: Yes Status: Acute Code(s): N18.4 - CHRONIC KIDNEY DISEASE, STAGE 4 (SEVERE) SNOMED Code(s): 813866765 Comment: Discussed on phone with Dr. Nowak, Dr. López, and in person with Dr. Hinton. Status and Disposition: Discharge now. [facility] 08/02. Fup Dr. Nowak. Keep appt with oil field worker 08/13.
--- NOTE | 2016-08-01 18:16 | PN ---
Progress Note - Progress Note Note: Time spent on discharge 55 minutes.
--- NOTE | 2016-08-02 07:33 | DS ---
CC: Dr. Nowak. DISCHARGE SUMMARY: DATE OF ADMISSION: 07/24/2016. DATE OF DISCHARGE: 08/01/2016. HOSPITAL COURSE: This 76-year-old man presented with altered mental status. There were no particular inciting events noted. 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 In the emergency room, his ammonia level was 127, and at the prior admission was 116. He was started on rifaximin. His lactulose was continued. He had a paracentesis to rule out SBP, but this was no growth and the antibiotic was stopped. His lactulose dose was increased. He had good improvement with the return of mental status to normal. He was seen by Dr. López who added midodrine and octreotide subcutaneous injections. The patient also had his diuretic regimen increased. He certainly had at most the modest response to the diuretics. Did not really record any weight loss, although the patient felt that his bloating and leg edema had improved somewhat. He was able to walk in the [place] independently quite easily. He was comfortable at rest, and mentally clear. He was not having an excessive number of bowel movements. I looked into the question of a [facility] consultation on his liver biopsy. This took longer than expected as the [facility] requested the tissue blocks, which were sent to them, and they did some special stains on more sections. We expect a report from the [facility] early next week. FINAL DIAGNOSES: 1. Advanced cirrhosis of uncertain etiology. 2. Stage IV kidney disease. DISCHARGE MEDICATIONS: 1. Lactulose 30 mL q.i.d. 2. Midodrine 5 mg t.i.d. 3. Octreotide 100 mg subcutaneously t.i.d. 4. Rifaximin 550 mg b.i.d. 5. Spironolactone 25 mg b.i.d. 6. Omeprazole 40 mg daily. [id number]/[facility] #: [id number] [facility]
== END 2016-08-01 17:55 | disposition home or self-care (01) | DRG 442 ==
LOC: ED 14:35 → MEDTELE 19:04 → MED 07-26 23:17
PROVIDERS: ADMIT Internal Medicine; ATTEND Internal Medicine
PROC: 0W9G3ZZ Drainage of Peritoneal Cavity, Percutaneous Approach (ICD-10-PCS; principal; 2016-07-25)
DX: K72.90 Hepatic failure, unspecified without coma (principal); N18.4 Chronic kidney disease, stage 4 (severe); R18.8 Other ascites; D69.6 Thrombocytopenia, unspecified; N17.9 Acute kidney failure, unspecified; K75.4 Autoimmune hepatitis; I47.1 Supraventricular tachycardia; M19.90 Unspecified osteoarthritis, unspecified site; I12.9 Hypertensive chronic kidney disease with stage 1 through stage 4 chronic kidney disease, or unspecified chronic kidney disease; Z96.653 Presence of artificial knee joint, bilateral; K74.69 Other cirrhosis of liver; D73.1 Hypersplenism; Z85.46 Personal history of malignant neoplasm of prostate; Z85.828 Personal history of other malignant neoplasm of skin; Z90.79 Acquired absence of other genital organ(s); Z82.49 Family history of ischemic heart disease and other diseases of the circulatory system; Z87.891 Personal history of nicotine dependence; Z72.89 Other problems related to lifestyle; Z92.3 Personal history of irradiation; Z80.0 Family history of malignant neoplasm of digestive organs
CPT/HCPCS: 36415; 49083; 71010; 76705; 80048; 80053; 80076; 80320; 81003; 82042; 82140; 82570; 83605; 83735; 84100; 84133; 84300; 84484; 85025; 85610; 87040; 87205; 89051; 93005; A9270-GY; G0480; J0692

== ENCOUNTER 2016-09-03 16:46 | Inpatient (IN) | payer MEDICARE ==
[2016-09-03] MEDS ORDERED: NS 0.9% 1000 ML* 1,000 ML IV ONE (17:54)
[2016-09-03] MEDS ORDERED: LACTULOSE* 30 ML UDC PO ONE (17:57)
--- NOTE | 2016-09-03 18:14 | ED ---
Shaniqua Van Claudia, scribed for Jeff Russell MD on 09/03/16 at 1741 . Complex/Multi-Sys Presentation - HPI Summary HPI Summary: 76 year old male presents to the ED after being referred due to abnormal blood work drawn today. Pt was referred by Dr. Souza (PCP) after he viewed the blood work from today. Pt and family note increased fatigue/weakness, bladder and bowel incontinence and some confusion worsening over the past few days. They state that he is usually more aware about needing to use the bathroom but lately hwe has been having multiple accidents. They also note that he fell down yesterday and his groin area is sore. They deny any aggravating or alleviating Sx. PMHx of Liver and Kidney Disease is noted. - History Of Current Complaint Chief Complaint: EDGeneral Time Seen by Provider: 09/03/16 17:32 Hx Obtained From: Patient Onset/Duration: Gradual Onset, Still Present Timing: Constant Associated Signs And Symptoms: Positive: Confusion, Other - incontinence, increased fatigue - Allergies/Home Medications Allergies/Adverse Reactions: Allergies Allergy/AdvReac Type Severity Reaction Status Date / Time No Known Allergies Allergy Verified 08/08/16 15:09 PMH/Surg Hx/FS Hx/Imm Hx Previously Healthy: Yes Endocrine/Hematology History: Reports: Hx Anemia, Other Endocrine/Hematological Disorders - thrombocytopenia Cardiovascular History: Reports: Hx Hypercholesterolemia, Hx Hypertension Respiratory History: Reports: Hx Pneumonia GI History: Reports: Other GI Disorders - non-alcoholic cirrhosis of liver History: Reports: Hx Chronic Renal Failure - CKD stage IV, Other Problems/ Disorders - renal insufficiency, inguinal hernia Hx Musculoskeletal History: Reports: Hx Arthritis, Hx Orthopedic Injury - Hx rotator cuff tear Sensory History: Reports: Hx Cataracts - removed bilaterally, Hx Contacts or Glasses Opthamlomology History: Reports: Hx Cataracts - removed bilaterally, Hx Contacts or Glasses Neurological History: Reports: Other Neuro Impairments/Disorders - Hepatic Encephalopathy - Cancer History Cancer Type, Location and Year: PROSTATE, SKIN Hx Radiation Therapy: Yes - Surgical History Surgery Procedure, Year, and Place: HERNIA, PROSTATECTOMY Hx Anesthesia Reactions: No Infectious Disease History: No Infectious Disease History: Reports: Hx Hepatitis - viral hepatitis Hx Denies: Traveled Outside the [place] in Last 30 Days - Family History Known Family History: Positive: Hypertension, Other - Cancer - Social History Occupation: Retired Lives: With Family Alcohol Use: Rare Hx Substance Use: No Substance Use Type: Reports: None Hx Tobacco Use: Yes Smoking Status (MU): Former Smoker Review of Systems Positive: Fatigue - increased fatigue Eyes: Negative ENT: Negative Cardiovascular: Negative Respiratory: Negative Gastrointestinal: Negative Positive: incontinence - bladder and bowel Positive: Other - groin area mildly sore Skin: Negative Neurological: Other - confusion Psychological: Normal All Other Systems Reviewed And Are Negative: Yes Physical Exam Triage Information Reviewed: Yes Vital Signs On Initial Exam: Initial Vitals Temp Pulse Resp BP Pulse Ox 98.6 F 77 20 151/79 99 09/03/16 16:51 09/03/16 16:51 09/03/16 16:51 09/03/16 16:51 09/03/16 16:51 Vital Signs Reviewed: Yes Appearance: Positive: No Pain Distress. Negative: Well-Appearing - jaundis, appears to be sleeping- aroused by voice Skin: Positive: Warm, Skin Color Reflects Adequate Perfusion, Dry Head/Face: Positive: Normal Head/Face Inspection Eyes: Positive: EOMI, FREDO ENT: Positive: Normal ENT inspection Neck: Positive: Supple, Nontender Respiratory/Lung Sounds: Positive: Clear to Auscultation, Breath Sounds Present Cardiovascular: Positive: RRR Abdomen Description: Positive: Nontender, Soft Bowel Sounds: Positive: Present Neurological: Positive: Normal, Sensory/Motor Intact, Alert, Oriented to Person Place, Time Psychiatric: Positive: Affect/Mood Appropriate - Rickey Coma Scale Coma Scale Total: 15 Diagnostics - Vital Signs Vital Signs Temp Pulse Resp BP Pulse Ox 09/03/16 17:09 98.6 F 77 20 151/79 99 09/03/16 16:51 98.6 F 77 20 151/79 99 - Laboratory Lab Statement: Any lab studies that have been ordered have been reviewed, and results considered in the medical decision making process. Complex Multi-Symp Course/Dx Course Of Treatment: NO CRITICAL CARE TIME. Assessment/Plan: ADMIT HOSPITALIST STABLE. - Diagnoses Provider Diagnoses: Altered mental state, Weakness, Hepatic encephalopathy - Physician Notifications Discussed Care Of Patient With: Discussed care of pt with Dr. Mcintyre whom will admit pt to [facility] [place]. Time Discussed With Above Provider: 17:57 Discharge - Discharge Plan Condition: Stable Disposition: [facility] Referrals: Srinivas Nowak MD [Primary Care Provider] - The documentation as recorded by the Shaniqua awan Claudia accurately reflects the service I personally performed and the decisions made by me, Jeff Russell MD.
[2016-09-03] MEDS ORDERED: Ondansetron INJ* 2 MG/ML VIAL IV PRN (18:22)
[2016-09-03 18:43] LABS: Comments Flag Yes; Hematocrit 26 % (42-52); Hemoglobin 8.5 g/dl (14.0-18.0); Mean Corpuscular HGB Conc 33 g/dl (31-36); Mean Corpuscular Hemoglobin 36 pg (27-31); Mean Corpuscular Volume 108 fL (80-94); Mean Platelet Volume 10 um3 (7.4-10.4); Red Cell Distribution Width 25 % (10.5-15); White Blood Count 10.5 10^3/ul (3.5-10.8)
[2016-09-03 18:44] LABS: Add Diff/Slide Review? Slide Review Added
[2016-09-03 19:01] LABS: Albumin 2.3 g/dL (3.2-5.2); BUN/Creatinine Ratio 14.6 (8-20); Calcium 8.6 mg/dL (8.6-10.3); EGFR African American 15.3 (>60); EGFR Non-African American 11.9 (>60); Globulin 3.5 g/dL (2-4); Potassium 4.1 mmol/L (3.5-5.0); Total Bilirubin 6.7 mg/dL (0.2-1.0); Total Protein 5.8 g/dL (6.4-8.9)
[2016-09-03 20:13] LABS: Add Path Review? YES; Macrocytosis 1+
[2016-09-03 20:14] LABS: Hypochromasia 1+
[2016-09-03 20:15] LABS: Schistocytes 2+
[2016-09-03] MEDS: LACTULOSE* 30 ML UDC PO SCH (20:17)
[2016-09-03 20:37] LABS: Urine Bacteria Absent (Absent); Urine Bilirubin Negative (Negative); Urine Glucose Negative (Negative); Urine Nitrite Negative (Negative)
[2016-09-03] MEDS ORDERED: Spironolactone TAB* 25 MG PO SCH (21:00)
[2016-09-03] MEDS: RiFAXimin* 550 MG TAB PO SCH (21:15)
[2016-09-03] MEDS: CMCS Midodrine (NF) 5 MG TAB PO SCH (21:20)
[2016-09-03] MEDS: Sodium Citrate/Citric Acid* 15 ML UDC PO SCH (21:46)
--- NOTE | 2016-09-03 22:13 | HP ---
HISTORY AND PHYSICAL: DATE OF ADMISSION: 09/03/16 PRIMARY CARE PROVIDER: Dr. Nowak. ATTENDING PHYSICIAN WHILE IN THE HOSPITAL: Dr. Stanton Mcintyre* (report being dictated by Marie Farrell NP). CHIEF COMPLAINT: Increased confusion. HISTORY OF PRESENT ILLNESS: Mr. Lozano is a 76-year-old male patient. He has a history of CKD stage 4, hepatic encephalopathy, liver cirrhosis, basal cell cancer, and prostate cancer. He comes in today and the family stating that they have noticed over the last 24 hours, he did have progressive worsening confusion. He actually had blood work done earlier today around 1 o' clock and when they were going to get the blood work for routine followup, the patient states that when they got out of the car, the family said that they noticed that he was not making sense. He did not remember where he was going or why he was going to have blood work. Family does state that over the last couple of days, he has been continent of urine. In addition to this, continent of stool at times and yesterday, he did not take his lactulose. He only took it once and he normally takes it 4 times a day. He says that he has not been having any abdominal pain. To me, he states he has not been coughing. He says he just feels tired, but no vomiting. There has been some incontinence of stool and urine, which is new for the patient, but typically happens when he is becoming encephalopathic according to the family and denies having any fevers or chills or any aching. He just says he feels weak and he feels tired. He denies having any dysuria. He denies any chills, but he says he is always cold. There is nothing new. So, he has a blood work drawn today. It was noted that his bicarb was 14. His creatinine was 4.89, which is right around his baseline. In addition to this, his bilirubin had elevated from 5 to 7 and there was concern because of these lab abnormalities that he was sent to the hospital for evaluation and because of his mentation. He was evaluated in the ER. There was concern for recurrence of hepatic encephalopathy and the hospitalist service was asked to evaluate for admission. PAST MEDICAL HISTORY: Significant for: 1. CKD stage 4. 2. Hepatic encephalopathy. 3. Liver cirrhosis. 4. Basal cell carcinoma. 5. Prostate cancer. PAST SURGICAL HISTORY: 1. He has had a radical prostatectomy. 2. Hernia repair. 3. Bilateral knee replacements. HOME MEDICATIONS: According to the list that we were able to obtain include: 1. Omeprazole 40 mg daily. 2. Octreotide 100 mcg subcu t.i.d. 3. Midodrine 5 mg p.o. t.i.d. 4. Lactulose 30 cc p.o. 4 times a day. 5. Rifaximin 550 mg p.o. b.i.d. 6. Spironolactone 25 mg p.o. b.i.d. ALLERGIES TO MEDICATIONS: Include no known drug allergies. FAMILY HISTORY: Mother had a history of CAD and lymphoma. The father had a history of colon cancer. SOCIAL HISTORY: The patient is a former smoker. Does not drink alcohol. He lives with his . Surrogate decision makers are his children and his . REVIEW OF SYSTEMS: There is no documented fever. He does admit to having weight change. He denies having any double vision. No ear discharge. No rhinorrhea. No sore throat. No thyroid enlargement. Denies having any chest pain. There is no orthopnea. There is no nocturnal dyspnea. There is no abdominal pain. There was no nausea. No vomiting. No dysuria. He does admit to having urinary incontinence and diarrhea. No frequency. No loss of consciousness. No pruritus and no skin ulcerations. Review of 14 systems completed, all others negative. PHYSICAL EXAMINATION GENERAL: At this time, Mr. Lozano is a 76-year-old male patient. He appears well developed. He is sitting in the ER stretcher. VITAL SIGNS: Blood pressure 151/79 with a pulse of 77, respirations 20, O2 sat 99%, and temperature 98.6. HEENT: Head is atraumatic and normocephalic. Eyes: EOMs intact. Sclerae: He did have some jaundice noted in the sclerae. They were icteric. Pupils react to light. Throat: Oral mucosa appears to be moist. No oropharyngeal erythema. NECK: Supple. LUNGS: Clear to auscultation. No wheezes, rales, or rhonchi. HEART: Sounds S1, S2. Regular rate and rhythm. No murmurs, rubs, or gallops. ABDOMEN: Soft, flat, and nontender. Bowel sounds present. He has a mild amount of ascites. EXTREMITIES: Pulses were 2+ throughout. He had +4 pitting edema bilaterally. He had 5/5 strength. NEUROLOGIC: He is awake, he is alert, and he is oriented x3. He does appear to be drowsy, but he knows he is in the hospital, knows his name. He does know the year. His geriatric care manager are equal. Tongue midline. He had no gross focal deficits. SKIN: Intact. LABORATORY DATA AND DIAGNOSTIC STUDIES: Today revealed a WBC of 10.6, RBC of 2.65, hemoglobin 9.2, hematocrit of 28, and platelet count 55. His sodium was 134, potassium 4.6, chloride of 101. Bicarb was 14, previous bicarb was 16. BUN 71, creatinine of 4.89, which is around his previous creatinine. His glucose was 135. Calcium 8.6, phos 4.1, mag 2.0. Total bili was 7.5, AST 45, ALT 55. Ammonia was 66. Old medical records were reviewed. ASSESSMENT AND PLAN: Mr. Lozano is a 76-year-old male patient coming in to the ER today with complaints of weakness, feeling tired, and he was having increasing confusion and the family was concerned that his ammonia was elevated. Hospitalist service was asked to evaluate for admission. He will be admitted under observation status for: 1. Hepatic encephalopathy: Again, I think he has mild hepatic encephalopathy at this point. He is confused. There has been report of him being confused. Although right now, he is awake, alert, and oriented x3, but he has been feeling confused and the family has noted it. He did miss his lactulose yesterday. I would like to make sure there is no underlying infection. We will go ahead and get a urine. His labs from the ER are pending currently. I will put him on q.4 hours lactulose and we will wean him back down to q.6 hours and try to continue the q.6 hours for now and we will rule out any other source of infection such as urine. He is not having any respiratory symptoms and he is not having abdominal pain. Should he not improve, we may consider further culture. 2. Chronic kidney disease stage 4, stable, follow. 3. Liver cirrhosis: Again, he did have biopsy results done from [place] according to the family. They were inconclusive. He can follow up with his GI. If he does not improve, we will get GI input here. 4. Basal cell cancer, prostate cancer: Follow up with his primary. 5. DVT prophylaxis: I will go ahead and put him on SCDs. I am waiting for his INR before I place him on chemical prophylaxis. 6. Code status: He wishes to be DNR. 7. Fluids, electrolytes, and nutrition: He can have a renal diet. 8. Low bicarb: At this point, it is probably related to the renal dysfunction. I will put him on Bicitra. TIME SPENT: Time spent on the admission was 60 minutes; greater than half the time was spent [id number] with the patient obtaining my history and physical, other half the time spent going over the plan of care with the patient and implementing plan of care. I did discuss the plan of care with my attending, Dr. Mcintyre; he is in agreement. MARIE FARRELL NP CC: Dr. Nowak* [id number]/CPS #: [id number] MTDFransisco
[2016-09-04] MEDS: Octreotide Acetate* 100 MCG/ML 1 ML VIAL SUBCUT SCH ×4 (00:17→21:54)
[2016-09-04] MEDS: LACTULOSE* 30 ML UDC PO SCH ×6 (00:19→20:39)
[2016-09-04 06:33] LABS: Hematocrit 20 % (42-52); Mean Corpuscular HGB Conc 32 g/dl (31-36); Mean Corpuscular Hemoglobin 35 pg (27-31); Mean Corpuscular Volume 108 fL (80-94); Mean Platelet Volume 11 um3 (7.4-10.4); Red Blood Count 1.81 10^6/ul (4.0-5.4); White Blood Count 9.4 10^3/ul (3.5-10.8)
[2016-09-04 06:35] LABS: Comments Flag Yes
[2016-09-04 06:40] LABS: Red Cell Distribution Width 25 % (10.5-15)
[2016-09-04 06:41] LABS: Add Diff/Slide Review? Slide Review Added; Hemoglobin 6.3 g/dl (14.0-18.0)
[2016-09-04 06:42] LABS: BUN/Creatinine Ratio 14.6 (8-20); Calcium 8.3 mg/dL (8.6-10.3); EGFR African American 15.2 (>60); EGFR Non-African American 11.9 (>60); Potassium 4.1 mmol/L (3.5-5.0)
[2016-09-04 07:13] LABS: Burr Cells 1+; Hypochromasia 2+; Macrocytosis 1+; Schistocytes 1+
[2016-09-04 07:14] LABS: Target Cells 1+
[2016-09-04 07:17] LABS: Add Path Review? YES
[2016-09-04] MEDS: predniSONE TAB* 20 MG PO SCH ×2 (08:24→20:39)
[2016-09-04] MEDS: RiFAXimin* 550 MG TAB PO SCH ×2 (08:24→20:39)
[2016-09-04] MEDS: Ferrous Gluconate TAB* 324 MG TAB PO SCH (08:24)
[2016-09-04] MEDS: Sodium Citrate/Citric Acid* 15 ML UDC PO SCH ×3 (08:24→20:39)
[2016-09-04] MEDS: Omeprazole CAP* 20 MG PO SCH (08:24)
[2016-09-04] MEDS: CMCS Midodrine (NF) 5 MG TAB PO SCH ×3 (08:25→20:39)
[2016-09-04] MEDS: cefTRIAXone(*) 1 GM in NS 0.9% 50 ML* 50 ML IVPB SCH (09:11)
[2016-09-04 09:24] LABS: Comments Flag Yes; Hematocrit 20 % (42-52); Mean Corpuscular HGB Conc 32 g/dl (31-36); Mean Corpuscular Hemoglobin 35 pg (27-31); Mean Platelet Volume 10 um3 (7.4-10.4); Red Blood Count 1.83 10^6/ul (4.0-5.4); Red Cell Distribution Width 25 % (10.5-15); White Blood Count 8.7 10^3/ul (3.5-10.8)
[2016-09-04 09:26] LABS: Hemoglobin 6.4 g/dl (14.0-18.0); Mean Corpuscular Volume 109 fL (80-94)
[2016-09-04 09:30] LABS: Add Diff/Slide Review? Slide Review Added
[2016-09-04 09:51] LABS: Neutrophil % 93 % (38-83)
[2016-09-04 09:52] LABS: Burr Cells 1+; Hypochromasia 2+; Macrocytosis 1+; Schistocytes 1+; Target Cells 1+
[2016-09-04 09:54] LABS: Add Path Review? YES
--- NOTE | 2016-09-04 13:23 | PN ---
Subjective Date of Service: 09/04/16 Interval History: Seen this AM Feels fatigued but mentating Denies any pain No BEE, SOB, CP, LH, N/V BM this AM not melenotic nor bloody. Had transient decline in BP to 80s after BM improved after sitting down and raising legs Objective Active Medications: Citric Acid/Sodium Citrate (Bicitra*) 15 ml PO TID [facility] Last Admin: 09/04/16 08:24 Dose: 15 ml Ferrous Gluconate (Fergon Tab*) 324 mg PO DAILY [facility] Last Admin: 09/04/16 08:24 Dose: 324 mg Ceftriaxone Sodium 1 gm/ (Sodium Chloride) 50 mls @ 200 mls/hr IVPB Q24H [facility] Last Admin: 09/04/16 09:11 Dose: 200 mls/hr Lactulose (Lactulose*) 30 ml PO Q4H [facility] Last Admin: 09/04/16 08:25 Dose: 30 ml Midodrine (Midodrine (Nf)) 5 mg PO TID [facility] PRN Reason: Protocol Last Admin: 09/04/16 08:25 Dose: 5 mg Nystatin (Nystatin Suspension*) 200,000 units PO QID [facility] Octreotide Acetate (Octreotide Acetate*) 100 mcg SUBCUT TID [facility] Last Admin: 09/04/16 08:25 Dose: 100 mcg Omeprazole (Prilosec Cap*) 40 mg PO DAILY [facility] Last Admin: 09/04/16 08:24 Dose: 40 mg Ondansetron HCl (Zofran Inj*) 4 mg IV Q6H PRN PRN Reason: NAUSEA Prednisone (Deltasone Tab*) 20 mg PO BID [facility] Last Admin: 09/04/16 08:24 Dose: 20 mg Rifaximin (Xifaxan*) 550 mg PO BID [facility] Last Admin: 09/04/16 08:24 Dose: 550 mg Vital Signs 09/04/16 09/04/16 10:39 10:58 Temperature 97.4 F 97.5 F Pulse Rate 85 88 Respiratory 16 16 Rate Blood Pressure 142/61 133/64 (mmHg) O2 Sat by Pulse 95 Oximetry Oxygen Devices in Use Now: None Appearance: sitting in chair. 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 coli) on urine culture Also evidence of blood loss All of above can be etiology for onset of HE Improving with abx and restarting lactulose (2) Anemia Comment: No e/o GI bleed, no varices on recent EGD Pt reports fall at home several days prior without headstrike Check CT abdomen to r/o RP bleed check CT left leg to r/o hematoma given mild visible bruising 1U PRBC now and repeat H/H 1 hour after transfusion Ceftriaxone for SBP prophylaxis (3) Cryptogenic cirrhosis Comment: Review of september report recommends HFE gene mution assay. Ordered today Continue rifaximin, lactulose, midodrone, octreotide. Not currently on aldactone. Consider restarting based on anemia MELD 36 (09/04) confirming about a 50% 3 month mortality prednisone for potential autoimmune etiology (4) UTI (urinary tract infection) Comment: CTX (5) Lactic acid acidosis Comment: In setting of anemia, liver disease, and UTI Blood transfusion then recheck (6) Chronic kidney disease, stage IV (severe) Comment: Dose meds accordingly blood transfusion (7) DVT prophylaxis Comment: SCDs, no pharmaxcologic prophylaxis due to thrombocytopenia
[2016-09-04] MEDS: Nystatin SUSPENSION* 100000 UNITS/ML 5 ML UDC PO SCH ×3 (13:33→20:40)
[2016-09-04 15:10] LABS: Hematocrit 26 % (42-52); Hemoglobin 7.8 g/dl (14.0-18.0)
[2016-09-04 15:11] LABS: Comments Flag Yes
--- NOTE | 2016-09-04 15:57 | RAD ---
INDICATION: Evaluate for intramuscular hematoma COMPARISON: None TECHNIQUE: Axial scans of the left thyroid performed with coronal and sagittal reconstructions. FINDINGS: There is no evidence of a soft tissue density mass to suggest intramuscular hemorrhage. There are scant vascular calcifications. There are several dystrophic calcifications. The fat muscle interfaces intact. There is subcutaneous edema/anasarca. There are no acute osseous findings. Bony mineralization appears normal. There is LEFT knee arthroplasty. IMPRESSION: NO CT FINDINGS OF INTRAMUSCULAR HEMATOMA. MODERATE SUBCUTANEOUS EDEMA
--- NOTE | 2016-09-04 16:01 | RAD ---
INDICATION: Left thigh hemorrhage evaluate for retroperitoneal hemorrhage. COMPARISON: Comparison is made with a prior CT of the abdomen from July 19, 2016 and a prior study from March 10, 2015. Correlation is also made with a study from January 24, 2009. TECHNIQUE: A CT scan of the abdomen and pelvis was performed without intravenous or oral contrast. Contiguous axial sections were obtained from the lung bases through the symphysis pubis. Images were reconstructed in the coronal and sagittal planes. FINDINGS: The lung bases are clear. There are trace bilateral pleural effusions.. The liver is small in size with a prominent nodular contour consistent with cirrhosis. There are 2 hypodense lesions present in the medial segment of the left hepatic lobe and posterior segment of the right hepatic lobe which are unchanged from prior studies and likely represent cysts. There is increased density within the gallbladder. No calcified gallstones are seen. The spleen and pancreas appears slightly small in size and otherwise unremarkable. The adrenal glands and kidneys are normal in size. No renal calculi or hydronephrosis is seen. The aorta is normal in caliber with moderate calcific plaque present. No significant enlarged retroperitoneal lymph nodes are seen. No retroperitoneal hemorrhage is seen. The stomach, small and large bowel appear nondistended. The appendix is within normal limits. There is no evidence for diverticulitis or colitis. No free intraperitoneal air is seen. There is a moderate amount of free intraperitoneal fluid present throughout the abdomen and pelvis. The proximal portion of the left thigh appears enlarged. There is moderate to severe diffuse degenerative disc disease throughout the lumbar spine. There is moderate to severe bilateral osteoarthritic change in the hips. No significant focal osseous normality is seen. IMPRESSION: 1. CIRRHOTIC LIVER. 2. MODERATE AMOUNT OF ASCITES, UNCHANGED. 3. NO EVIDENCE FOR RETROPERITONEAL HEMORRHAGE.
[2016-09-04 20:08] LABS: Hematocrit 22 % (42-52); Hemoglobin 7.4 g/dl (14.0-18.0)
[2016-09-04 20:10] LABS: Comments Flag Yes
[2016-09-05] MEDS: LACTULOSE* 30 ML UDC PO SCH ×6 (00:39→20:18)
[2016-09-05 07:55] LABS: BUN/Creatinine Ratio 13.8 (8-20); Calcium 8.3 mg/dL (8.6-10.3); Direct Bilirubin 2.1 mg/dL (0.03-0.18); EGFR Non-African American 11.7 (>60); Globulin 3.2 g/dL (2-4); Indirect Bilirubin 2.3 mg/dL (0.3-1.0); Potassium 3.7 mmol/L (3.5-5.0); Total Bilirubin 4.4 mg/dL (0.2-1.0); Total Protein 5.2 g/dL (6.4-8.9)
[2016-09-05 08:09] LABS: Hematocrit 21 % (42-52); Hemoglobin 6.9 g/dl (14.0-18.0); Mean Corpuscular HGB Conc 33 g/dl (31-36); Mean Corpuscular Hemoglobin 35 pg (27-31); Mean Corpuscular Volume 104 fL (80-94); Red Blood Count 1.98 10^6/ul (4.0-5.4); Red Cell Distribution Width 26 % (10.5-15); White Blood Count 7.4 10^3/ul (3.5-10.8)
[2016-09-05 08:13] LABS: Add Diff/Slide Review? Slide Review Added; Comments Flag Yes
[2016-09-05] MEDS: Sodium Citrate/Citric Acid* 15 ML UDC PO SCH ×3 (08:48→20:20)
[2016-09-05] MEDS: Octreotide Acetate* 100 MCG/ML 1 ML VIAL SUBCUT SCH ×3 (08:49→20:14)
[2016-09-05] MEDS: Nystatin SUSPENSION* 100000 UNITS/ML 5 ML UDC PO SCH ×4 (08:49→20:24)
[2016-09-05] MEDS: Omeprazole CAP* 20 MG PO SCH (08:49)
[2016-09-05] MEDS: CMCS Midodrine (NF) 5 MG TAB PO SCH ×3 (08:50→20:21)
[2016-09-05] MEDS: RiFAXimin* 550 MG TAB PO SCH ×2 (08:50→20:26)
[2016-09-05] MEDS: predniSONE TAB* 20 MG PO SCH ×2 (08:50→20:21)
[2016-09-05] MEDS: Ferrous Gluconate TAB* 324 MG TAB PO SCH (08:50)
[2016-09-05] MEDS: cefTRIAXone(*) 1 GM in NS 0.9% 50 ML* 50 ML IVPB SCH (08:55)
--- NOTE | 2016-09-05 14:57 | PN ---
Subjective Date of Service: 09/05/16 Interval History: Many bowel movements this AM, none bloody Feels fatigued especially when walking appetite OK at bedside, thinks mental status is baseline Objective Active Medications: Citric Acid/Sodium Citrate (Bicitra*) 15 ml PO TID [facility] Last Admin: 09/05/16 12:59 Dose: 15 ml Ferrous Gluconate (Fergon Tab*) 324 mg PO DAILY [facility] Last Admin: 09/05/16 08:50 Dose: 324 mg Ceftriaxone Sodium 1 gm/ (Sodium Chloride) 50 mls @ 200 mls/hr IVPB Q24H [facility] Last Admin: 09/05/16 08:55 Dose: 200 mls/hr Lactulose (Lactulose*) 30 ml PO Q4H [facility] Last Admin: 09/05/16 12:59 Dose: 30 ml Midodrine (Midodrine (Nf)) 5 mg PO TID [facility] PRN Reason: Protocol Last Admin: 09/05/16 12:59 Dose: 5 mg Nystatin (Nystatin Suspension*) 200,000 units PO QID [facility] Last Admin: 09/05/16 12:59 Dose: 200,000 units Octreotide Acetate (Octreotide Acetate*) 100 mcg SUBCUT TID [facility] Last Admin: 09/05/16 12:58 Dose: 100 mcg Omeprazole (Prilosec Cap*) 40 mg PO DAILY [facility] Last Admin: 09/05/16 08:49 Dose: 40 mg Ondansetron HCl (Zofran Inj*) 4 mg IV Q6H PRN PRN Reason: NAUSEA Prednisone (Deltasone Tab*) 20 mg PO BID [facility] Last Admin: 09/05/16 08:50 Dose: 20 mg Rifaximin (Xifaxan*) 550 mg PO BID [facility] Last Admin: 09/05/16 08:50 Dose: 550 mg Vital Signs 09/04/16 09/04/16 09/04/16 15:12 15:54 19:39 Temperature 97.4 F Pulse Rate 67 70 Respiratory 16 20 Rate Blood Pressure 171/83 154/82 162/83 (mmHg) O2 Sat by Pulse 100 99 Oximetry 09/04/16 09/04/16 09/05/16 20:00 23:27 07:22 Temperature 97.9 F 97.4 F Pulse Rate 71 99 Respiratory 20 17 20 Rate Blood Pressure 165/78 151/73 (mmHg) O2 Sat by Pulse 100 96 Oximetry 09/05/16 10:36 Temperature Pulse Rate Respiratory 22 Rate Blood Pressure (mmHg) O2 Sat by Pulse Oximetry Oxygen Devices in Use Now: None Appearance: sitting up in bed, NAD Eyes: PERRLA, - - scleral icterus Ears/Nose/Mouth/Throat: Clear Oropharnyx, Mucous Membranes Moist Neck: NL Appearance and Movements; NL JVP, Trachea Midline Respiratory: Symmetrical Chest Expansion and Respiratory Effort, Clear to Auscultation Cardiovascular: RRR Abdominal: NL Sounds; No Tenderness; No Distention, No Hepatosplenomegaly Lymphatic: No Cervical Adenopathy Extremities: - - 2+ edema from feel to thighs Neurological: Alert and Oriented x 3 Result Diagrams: 09/05/16 05:51 09/05/16 05:52 Microbiology and Other Data: Microbiology 09/05/16 06:25 Stool Occult Blood ([facility]HEL) - Final Stool Assess/Plan/Problems-Billing Assessment: 76 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 coli) on urine culture Also anemia All of above can be etiology for onset of HE Improving with abx and restarting lactulose c/w treatment with abx and lactulose (2) Anemia Comment: No e/o GI bleed, no varices on recent EGD no e/o RP bleed or hematoma in thigh which he injured in recent fall Suspect hemlysis Slide review pending, LDH elevated, fibrinogen pending +thrombocytopenia but suspect in setting of underlying liver dz. Unlikely TTP Ceftriaxone for SBP prophylaxis (3) Cryptogenic cirrhosis Comment: Review of september report recommends HFE gene mution assay. Ordered today Continue rifaximin, lactulose, midodrone, octreotide. Not currently on aldactone. Consider restarting based on anemia MELD 36 (09/04) confirming about a 50% 3 month mortality prednisone for potential autoimmune etiology (4) UTI (urinary tract infection) Comment: CTX (5) Lactic acid acidosis Comment: In setting of anemia, liver disease, and UTI Blood transfusion then recheck (6) Chronic kidney disease, stage IV (severe) Comment: Dose meds accordingly blood transfusion (7) DVT prophylaxis Comment: SCDs, no pharmaxcologic prophylaxis due to thrombocytopenia
[2016-09-06] MEDS: LACTULOSE* 30 ML UDC PO SCH ×7 (01:46→23:45)
[2016-09-06 06:34] LABS: Mean Corpuscular HGB Conc 33 g/dl (31-36); Mean Corpuscular Volume 101 fL (80-94)
[2016-09-06 06:45] LABS: Hematocrit 21 % (42-52); Mean Corpuscular Hemoglobin 34 pg (27-31); Mean Platelet Volume 11 um3 (7.4-10.4); Red Blood Count 2.09 10^6/ul (4.0-5.4); Red Cell Distribution Width 26 % (10.5-15); White Blood Count 5.2 10^3/ul (3.5-10.8)
[2016-09-06 06:47] LABS: Albumin 1.9 g/dL (3.2-5.2); BUN/Creatinine Ratio 13.8 (8-20); Calcium 8.2 mg/dL (8.6-10.3); Direct Bilirubin 1.9 mg/dL (0.03-0.18); EGFR African American 14.9 (>60); EGFR Non-African American 11.5 (>60); Indirect Bilirubin 2.2 mg/dL (0.3-1.0); Potassium 4.1 mmol/L (3.5-5.0); Total Bilirubin 4.1 mg/dL (0.2-1.0); Total Protein 4.9 g/dL (6.4-8.9)
[2016-09-06 06:49] LABS: Comments Flag Yes
[2016-09-06] MEDS: predniSONE TAB* 20 MG PO SCH ×2 (09:41→20:52)
[2016-09-06] MEDS: cefTRIAXone(*) 1 GM in NS 0.9% 50 ML* 50 ML IVPB SCH (09:41)
[2016-09-06] MEDS: Sodium Citrate/Citric Acid* 15 ML UDC PO SCH ×3 (09:41→20:53)
[2016-09-06] MEDS: Nystatin SUSPENSION* 100000 UNITS/ML 5 ML UDC PO SCH ×4 (09:41→20:51)
[2016-09-06] MEDS: CMCS Midodrine (NF) 5 MG TAB PO SCH ×3 (09:42→20:51)
[2016-09-06] MEDS: Octreotide Acetate* 100 MCG/ML 1 ML VIAL SUBCUT SCH ×3 (09:42→20:52)
[2016-09-06] MEDS: Ferrous Gluconate TAB* 324 MG TAB PO SCH (09:42)
[2016-09-06] MEDS: RiFAXimin* 550 MG TAB PO SCH ×2 (09:42→20:52)
[2016-09-06] MEDS: Omeprazole CAP* 20 MG PO SCH (09:42)
[2016-09-06 11:21] LABS: Corrected Retic Count 0.7 % (0.5-1.5)
[2016-09-06 11:23] LABS: Comments Flag Yes
--- NOTE | 2016-09-06 16:06 | PN ---
Subjective Date of Service: 09/06/16 Interval History: Seen and examined Feels fatigued Feels frustrated with lack of dx for liver dz and feeling that he keeps having set backs despite "doing everything he is supposed to do" No pain, no SOB/CP, LH Objective Active Medications: Citric Acid/Sodium Citrate (Bicitra*) 15 ml PO TID [facility] Last Admin: 09/06/16 13:07 Dose: 15 ml Ferrous Gluconate (Fergon Tab*) 324 mg PO DAILY [facility] Last Admin: 09/06/16 09:42 Dose: 324 mg Ceftriaxone Sodium 1 gm/ (Sodium Chloride) 50 mls @ 200 mls/hr IVPB Q24H [facility] Last Admin: 09/06/16 09:41 Dose: 200 mls/hr Lactulose (Lactulose*) 30 ml PO Q4H [facility] Last Admin: 09/06/16 13:07 Dose: 30 ml Midodrine (Midodrine (Nf)) 5 mg PO TID [facility] PRN Reason: Protocol Last Admin: 09/06/16 13:07 Dose: 5 mg Nystatin (Nystatin Suspension*) 200,000 units PO QID [facility] Last Admin: 09/06/16 13:07 Dose: 200,000 units Octreotide Acetate (Octreotide Acetate*) 100 mcg SUBCUT TID [facility] Last Admin: 09/06/16 13:07 Dose: 100 mcg Omeprazole (Prilosec Cap*) 40 mg PO DAILY [facility] Last Admin: 09/06/16 09:42 Dose: 40 mg Ondansetron HCl (Zofran Inj*) 4 mg IV Q6H PRN PRN Reason: NAUSEA Prednisone (Deltasone Tab*) 20 mg PO BID [facility] Last Admin: 09/06/16 09:41 Dose: 20 mg Rifaximin (Xifaxan*) 550 mg PO BID [facility] Last Admin: 09/06/16 09:42 Dose: 550 mg Vital Signs 09/05/16 09/05/16 09/05/16 18:39 20:25 23:23 Temperature 98.2 F 97.4 F Pulse Rate 84 62 Respiratory 20 20 16 Rate Blood Pressure 169/90 188/84 (mmHg) O2 Sat by Pulse 100 Oximetry 09/06/16 09/06/16 09/06/16 00:36 07:37 07:38 Temperature Pulse Rate 68 Respiratory 18 18 Rate Blood Pressure 152/59 (mmHg) O2 Sat by Pulse 100 99 Oximetry 09/06/16 15:12 Temperature 97.7 F Pulse Rate 61 Respiratory 16 Rate Blood Pressure 178/80 (mmHg) O2 Sat by Pulse 98 Oximetry Oxygen Devices in Use Now: None Appearance: sitting up in bed, NAD Eyes: - - mild icterus Ears/Nose/Mouth/Throat: Clear Oropharnyx Neck: NL Appearance and Movements; NL JVP, Trachea Midline Respiratory: Symmetrical Chest Expansion and Respiratory Effort, Clear to Auscultation Cardiovascular: RRR Abdominal: NL Sounds; No Tenderness; No Distention Extremities: - - 2+ ankles to thighs Neurological: Alert and Oriented x 3 Result Diagrams: 09/06/16 06:11 09/06/16 06:11 Microbiology and Other Data: Microbiology 09/05/16 06:25 Stool Occult Blood ([facility]HEL) - Final Stool Assess/Plan/Problems-Billing Assessment: 76 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 coli) on urine culture Also anemia All of above can be etiology for onset of HE Improving with abx and restarting lactulose c/w treatment with abx and lactulose (2) Anemia Comment: Suspect hemolytis anemia No e/o GI bleed, no varices on recent EGD no e/o RP bleed or hematoma in thigh which he injured in recent fall Suspect hemlysis, elevated LDH, indirect bili, weakly positive rose Fibrinogen decreased rasining concern for DIC although could be decreased in liver dz and pt has no bleeding anywhere at this point (IV sites, mouth) +thrombocytopenia but suspect in setting of underlying liver dz. Also Dr. Ziegler noted they are very small on slide and reported value likely underestimates true value Ceftriaxone for SBP prophylaxis in setting of potential bleed and for UTI Cryoglobulin, EPO, and cold agglutinin pending (3) Cryptogenic cirrhosis Comment: toxin (hydrocarbins) vs autoimmune suspected. Pt could not tell me his weekend caregiver today. He does have an appt on Friday Continue rifaximin, lactulose, midodrone, octreotide. Aldactone restarted 09/06 MELD 36 (09/04) confirming about a 50% 3 month mortality prednisone for potential autoimmune etiology (4) UTI (urinary tract infection) Comment: CTX (5) Lactic acid acidosis Comment: In setting of anemia, liver disease, and UTI resolved with transfusion PRBC (6) Chronic kidney disease, stage IV (severe) Comment: Dose meds accordingly blood transfusion (7) DVT prophylaxis Comment: SCDs, no pharmaxcologic prophylaxis due to thrombocytopenia Status and Disposition: Trend H/H. Can likely leave when H/H stable. Heme following. PT still following
--- NOTE | 2016-09-06 16:50 | CONS ---
HEMATOLOGY CONSULTATION REPORT: DATE OF CONSULT: REFERRING PHYSICIAN: Hospitalist service. PRIMARY CARE PHYSICIAN: Dr. Nowak. LEARNING ENGINEER: Dr. Frey. INPATIENT ATTENDING PHYSICIAN: Dr. Stanton Mcintyre. REASON FOR CONSULT: Progressive anemia. HISTORY OF PRESENT ILLNESS: This is a 76-year-old male with a history of advanced cirrhosis as well as stage 4 renal insufficiency. He was admitted with hepatic encephalopathy. The patient does not have clear recollection of the details of events prior to coming into the hospital. He does remember being confused and is aware that his family has more information. I went through hospitalist notes, he was admitted on September 03 with worsening confusion, speaking without making much sense. He has been taking lactulose and has loose stool. History notably absent for melena or bright red blood per rectum. No vomiting. No fevers. On presentation, with a bicarb of 14, creatinine of 4.89, and a bilirubin of 7, all are up from their baseline. He had a hemoglobin of 8.5 on presentation and down to 6.3 with hydration, repeat was 6.4 on 09/04/16. He received 2 units of packed cells, went to 7.8 and then drifted back down to 7.0 today. MCV on admission was 108. His baseline hemoglobin was 10 to 11 in early 2017 but has run between 8 and 10 in the past. Baseline MCV is around 100 to 102, but also has been high in the past. He has an INR of 2.69. Chemistry significant for consistent renal insufficiency with baseline creatinine of 3 to 5. He has been placed on lactulose, has been stable during this hospitalization. He had stool guaiac done that was negative and he has had no obvious source of bleeding. Subjectively, he reports being very very tired and feeling weak. Has not noted any bruising or bleeding, no nosebleeds. PAST MEDICAL HISTORY: 1. 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 Complicated by acute hepatic encephalopathy. 2. Renal insufficiency, stage 4. 3. History of basal cell carcinoma. 4. History of prostate cancer. 5. History of osteoarthritis. PAST SURGICAL HISTORY: 1. Radical prostatectomy. 2. Hernia repair. 3. Bilateral knee replacements. HOME MEDICATIONS: 1. Omeprazole. 2. Octreotide 100 mcg subcu t.i.d. 3. Midodrine 5 mg t.i.d. 4. Lactulose 30 cc 4 times a day. 5. Rifaximin 550 mg b.i.d. 6. Spironolactone 25 mg b.i.d. ALLERGIES: None. FAMILY HISTORY: History of lymphoma and coronary artery disease as well as colon cancer in the family. SOCIAL HISTORY: Does not drink alcohol. and family are very involved. Children are good surrogate decision makers. Former smoker. REVIEW OF SYSTEMS: He reports being very tired, denies fevers or chills. He denies shortness of breath, cardiac symptoms. He takes lactulose and has loose stool, but he states he is hungry and eating well. No urinary symptoms. No acute joint pain. No skin changes. Neurologically, he is confused but recognizes as much. PHYSICAL EXAM: BP 152/59, temperature is 97.4, pulse 68, respirations 18. HEENT: Pale. Mucosa moist. No thrush. No cervical or supraclavicular adenopathy. Nodes: No peripheral lymphadenopathy. Lungs: Clear to auscultation. Heart: Regular rate and rhythm. S1, S2. No murmurs or gallops. Abdomen: He has got ascites. He is obese. I cannot feel the spleen or liver edge, but poor quality exam because of above. Extremities: Trace edema. No clubbing, cyanosis. Skin: No clear bruising or bleeding. LABORATORY DATA: CBC today hemoglobin 7.0, MCV 101, platelet count 25,000, white count 5.2 with a left shift. Review of the blood film from September 04 at 5:52 a.m., pretransfusion. He has evidence of marked liver insufficiency with acanthocytosis throughout. There are no schistocytes, no spherocytes. His platelets appear more than 25,000, many are very small, so the CBC may be under counting. He has normal white blood cell morphology. No evidence of dysplasia. Other blood work: Iron saturation 96% with ferritin 955, B12 over 1450, LDH 404. ASSESSMENT AND PLAN: A 76-year-old male with decompensating liver failure and progressive cytopenias, both anemia and thrombocytopenia. No evidence of microangiopathic hemolysis and no clear evidence of bleeding. Differential diagnosis includes sequestration with decompensation of his liver, could have a mild immune hemolysis, renal insufficiency is likely contributing to poor response. Low fibrinogen raises possibility of low grade DIC but could also be low production. 1. We will check erythropoietin level as well as retic count. 2. He has a +1 Lucas, but I am not sure if this is a significant contributor to his anemia. If he remains anemic, we could consider a course of steroids but want to confer with GI before we did that. We will check cold agglutinin for contribution of Lucas-negative immune hemolysis. 3. Transfuse to keep hemoglobin over 7 for the time being. 4. Continue to follow his counts during this hospitalization. [id number]/[facility] #: [id number] YUSUF
[2016-09-06] MEDS: Spironolactone TAB* 25 MG PO SCH (20:53)
[2016-09-07] MEDS: LACTULOSE* 30 ML UDC PO SCH ×6 (03:48→23:57)
[2016-09-07 07:16] LABS: Hematocrit 25 % (42-52); Hemoglobin 8.1 g/dl (14.0-18.0); Mean Corpuscular HGB Conc 33 g/dl (31-36); Mean Corpuscular Hemoglobin 34 pg (27-31); Mean Corpuscular Volume 103 fL (80-94); Mean Platelet Volume 10 um3 (7.4-10.4); Red Blood Count 2.39 10^6/ul (4.0-5.4); Red Cell Distribution Width 26 % (10.5-15); White Blood Count 6.6 10^3/ul (3.5-10.8)
[2016-09-07 07:21] LABS: Add Diff/Slide Review? Slide Review Added; Comments Flag Yes
[2016-09-07 07:35] LABS: Albumin 2.2 g/dL (3.2-5.2); BUN/Creatinine Ratio 13.2 (8-20); Calcium 8.4 mg/dL (8.6-10.3); EGFR African American 14.8 (>60); EGFR Non-African American 11.5 (>60); Globulin 3.5 g/dL (2-4); Indirect Bilirubin 2.5 mg/dL (0.3-1.0); Potassium 4.3 mmol/L (3.5-5.0); Total Bilirubin 4.5 mg/dL (0.2-1.0); Total Protein 5.7 g/dL (6.4-8.9)
[2016-09-07] MEDS: Ferrous Gluconate TAB* 324 MG TAB PO SCH (08:19)
[2016-09-07] MEDS: CMCS Midodrine (NF) 5 MG TAB PO SCH ×3 (08:19→20:10)
[2016-09-07] MEDS: RiFAXimin* 550 MG TAB PO SCH ×2 (08:19→20:11)
[2016-09-07] MEDS: Omeprazole CAP* 20 MG PO SCH (08:20)
[2016-09-07] MEDS: predniSONE TAB* 20 MG PO SCH ×2 (08:20→20:11)
[2016-09-07] MEDS: Spironolactone TAB* 25 MG PO SCH ×2 (08:20→20:12)
[2016-09-07] MEDS: Nystatin SUSPENSION* 100000 UNITS/ML 5 ML UDC PO SCH ×4 (08:21→20:11)
[2016-09-07] MEDS: Sodium Citrate/Citric Acid* 15 ML UDC PO SCH ×3 (08:21→20:12)
--- NOTE | 2016-09-07 08:42 | PN ---
Progress Note - Progress Note SOAP: Subjective: []Feeling a little better today. He is furstrated at not knowing why liver is not working well. Looking for something to fight. No diarrhea. No fevers. Not in pain. He walked around floor yesterday and had no SOB or chest pain. Citric Acid/Sodium Citrate (Bicitra*) 15 ml PO TID [facility] Last Admin: 09/07/16 08:21 Dose: 15 ml Ferrous Gluconate (Fergon Tab*) 324 mg PO DAILY [facility] Last Admin: 09/07/16 08:19 Dose: 324 mg Ceftriaxone Sodium 1 gm/ (Sodium Chloride) 50 mls @ 200 mls/hr IVPB Q24H [facility] Last Admin: 09/06/16 09:41 Dose: 200 mls/hr Lactulose (Lactulose*) 30 ml PO Q4H [facility] Last Admin: 09/07/16 08:16 Dose: 30 ml Midodrine (Midodrine (Nf)) 5 mg PO TID [facility] PRN Reason: Protocol Last Admin: 09/07/16 08:19 Dose: 5 mg Nystatin (Nystatin Suspension*) 200,000 units PO QID [facility] Last Admin: 09/07/16 08:21 Dose: 200,000 units Octreotide Acetate (Octreotide Acetate*) 100 mcg SUBCUT TID [facility] Last Admin: 09/06/16 20:52 Dose: 100 mcg Omeprazole (Prilosec Cap*) 40 mg PO DAILY [facility] Last Admin: 09/07/16 08:20 Dose: 40 mg Ondansetron HCl (Zofran Inj*) 4 mg IV Q6H PRN PRN Reason: NAUSEA Prednisone (Deltasone Tab*) 20 mg PO BID [facility] Last Admin: 09/07/16 08:20 Dose: 20 mg Rifaximin (Xifaxan*) 550 mg PO BID [facility] Last Admin: 09/07/16 08:19 Dose: 550 mg Spironolactone (Aldactone Tab*) 25 mg PO BID [facility] Last Admin: 09/07/16 08:20 Dose: 25 mg Objective: [] Vital Signs Temp Pulse Resp BP Pulse Ox 98.2 F 56 16 157/76 97 09/06/16 23:38 09/06/16 23:38 09/06/16 23:38 09/06/16 23:38 09/06/16 23:38 HEENT - pale and jaundice CTA RRR S1S2 Fluid, no spleen tip Ext +2 edema Neuro - Oriented to [facility] and reason for admission. Conversational. Assessment: []76 year old with end stage liver disease, low production anemia and evidence of hemolysis. The low haptoglobin, like the low fibrinogen could be from advanced liver disease. However, I suspect a low grade hemolytic process with poor marrow response from hepatic and renal failure. Plan: []1. Hgb increased today and if remains at this level, no intervention. No indication for transfusion at this time. 2. For further drop w/o bleeding could try steroids or IVIG. 3. I would like to see him make is appointment at [place] next week.
[2016-09-07] MEDS: cefTRIAXone(*) 1 GM in NS 0.9% 50 ML* 50 ML IVPB SCH (09:26)
[2016-09-07] MEDS: Octreotide Acetate* 100 MCG/ML 1 ML VIAL SUBCUT SCH ×3 (09:27→20:11)
--- NOTE | 2016-09-07 11:05 | PN ---
Subjective Date of Service: 09/07/16 Interval History: Patient seen and examined at bedside. Patient's son, Buddy, was in the room. This is a 76 yo gentleman who presented to the hospital with concern for AMS secondary to hepatic encephalopathy. During his admission, there has been concern for UTI (being treated with ceftriaxone) as well as anemia ( multifactorial). He has improved in his mental status and has improved counts today. The patient expresses frustration over his condition. He denies any acute complaints, such as chest pain, SOB, abd pain, n/v. We did discuss his compliance with his medication regimen. Buddy describes a progressive confusion, as evidenced by urinating in the living room and kitchen, and behavioral changes earlier this week. The patient is unable to recall but states he didn't take his medication because it was Easter. After this, he appears to have missed several more doses due to his AMS. We did discuss the importance of compliance with his medication, as nonadherence will likely lead to increased confusion and progression of his disease. Family History: Unchanged from Admission Social History: Unchanged from Admission Past Medical History: Unchanged from Admission Objective Active Medications: Citric Acid/Sodium Citrate (Bicitra*) 15 ml PO TID [facility] Last Admin: 09/07/16 08:21 Dose: 15 ml Ferrous Gluconate (Fergon Tab*) 324 mg PO DAILY [facility] Last Admin: 09/07/16 08:19 Dose: 324 mg Ceftriaxone Sodium 1 gm/ (Sodium Chloride) 50 mls @ 200 mls/hr IVPB Q24H [facility] Last Admin: 09/07/16 09:26 Dose: 200 mls/hr Lactulose (Lactulose*) 30 ml PO Q4H [facility] Last Admin: 09/07/16 08:16 Dose: 30 ml Midodrine (Midodrine (Nf)) 5 mg PO TID [facility] PRN Reason: Protocol Last Admin: 09/07/16 08:19 Dose: 5 mg Nystatin (Nystatin Suspension*) 200,000 units PO QID [facility] Last Admin: 09/07/16 08:21 Dose: 200,000 units Octreotide Acetate (Octreotide Acetate*) 100 mcg SUBCUT TID [facility] Last Admin: 09/07/16 09:27 Dose: 100 mcg Omeprazole (Prilosec Cap*) 40 mg PO DAILY [facility] Last Admin: 09/07/16 08:20 Dose: 40 mg Ondansetron HCl (Zofran Inj*) 4 mg IV Q6H PRN PRN Reason: NAUSEA Prednisone (Deltasone Tab*) 20 mg PO BID [facility] Last Admin: 09/07/16 08:20 Dose: 20 mg Rifaximin (Xifaxan*) 550 mg PO BID [facility] Last Admin: 09/07/16 08:19 Dose: 550 mg Spironolactone (Aldactone Tab*) 25 mg PO BID [facility] Last Admin: 09/07/16 08:20 Dose: 25 mg Vital Signs 09/06/16 09/06/16 09/06/16 15:12 20:00 23:38 Temperature 97.7 F 98.2 F Pulse Rate 61 56 Respiratory 16 16 16 Rate Blood Pressure 178/80 157/76 (mmHg) O2 Sat by Pulse 98 97 Oximetry 09/07/16 09/07/16 07:57 08:00 Temperature 97.3 F Pulse Rate 77 Respiratory 17 17 Rate Blood Pressure 135/88 (mmHg) O2 Sat by Pulse 100 Oximetry Oxygen Devices in Use Now: None Appearance: Male patient, OOB to chair, in NAD Eyes: - - mildly icteric sclera Neck: NL Appearance and Movements; NL JVP Respiratory: Symmetrical Chest Expansion and Respiratory Effort, Clear to Auscultation Cardiovascular: NL Sounds; No Murmurs; No JVD, RRR Abdominal: NL Sounds; No Tenderness; No Distention Extremities: - - 2-3+ pitting edema from bilateral feet to thighs Skin: No Rash or Ulcers Neurological: Alert and Oriented x 3 Lines/Tubes/Other Access: Clean, Dry and Intact Peripheral IV Nutrition: Taking PO's Result Diagrams: 09/07/16 06:57 09/07/16 06:57 Microbiology and Other Data: Microbiology 09/05/16 06:25 Stool Occult Blood (ETHEL) - Final Stool Assess/Plan/Problems-Billing Assessment: 76 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 coli) on urine culture Also anemia All of above can be etiology for onset of HE Improving with abx and restarting lactulose c/w treatment with abx and lactulose (2) Anemia Code(s): D64.9 - ANEMIA, UNSPECIFIED Comment: Suspect hemolytic anemia No e/o GI bleed, no varices on recent EGD No e/o RP bleed or hematoma in thigh, which he injured in recent fall Suspect hemolysis - elevated LDH, indirect bili, weakly positive Lucas Fibrinogen decreased, raising concern for DIC, although could be decreased due to liver dz. Pt has no bleeding anywhere at this point (IV sites, mouth). +thrombocytopenia, but suspect in setting of underlying liver dz. Also Dr. Ziegler noted they are very small on slide and reported value likely underestimates true value. Ceftriaxone for SBP prophylaxis in setting of potential bleed and for UTI. Cryoglobulin, EPO, and cold agglutinin pending (3) Cryptogenic cirrhosis Code(s): K74.69 - OTHER CIRRHOSIS OF LIVER Comment: Toxin (hydrocarbins) vs autoimmune suspected. Pt could not tell me his ergonomics consultant today. He does have an appt on Friday. Continue rifaximin, lactulose, midodrine, octreotide. Aldactone restarted 09/06 MELD 36 (09/04) confirming about a 50% 3 month mortality Prednisone for potential autoimmune etiology (4) UTI (urinary tract infection) Comment: E. coli on urine culture Continue ceftriaxone. (5) Lactic acid acidosis Code(s): E87.2 - ACIDOSIS Comment: In setting of anemia, liver disease, and UTI Resolved with transfusion PRBC (6) Chronic kidney disease, stage IV (severe) Code(s): N18.4 - CHRONIC KIDNEY DISEASE, STAGE 4 (SEVERE) Comment: Continue to renally dose medications. S/p blood transfusion Avoid nephrotoxic medications (7) DVT prophylaxis Code(s): LQI9998 - Comment: SCDs, no pharmaxcologic prophylaxis due to thrombocytopenia Status and Disposition: Inpatient admission. Continue to trend H/H. Can likely leave when H/H stable. Heme following. PT still following. Anticipate d/c tomorrow if HH remains stable.
[2016-09-08] MEDS: LACTULOSE* 30 ML UDC PO SCH ×3 (03:26→12:16)
[2016-09-08] MEDS: RiFAXimin* 550 MG TAB PO SCH (08:33)
[2016-09-08] MEDS: Sodium Citrate/Citric Acid* 15 ML UDC PO SCH (08:33)
[2016-09-08] MEDS: predniSONE TAB* 20 MG PO SCH (08:33)
[2016-09-08] MEDS: Omeprazole CAP* 20 MG PO SCH (08:36)
[2016-09-08] MEDS: Ferrous Gluconate TAB* 324 MG TAB PO SCH (08:37)
[2016-09-08] MEDS: Spironolactone TAB* 25 MG PO SCH (08:37)
[2016-09-08] MEDS: Octreotide Acetate* 100 MCG/ML 1 ML VIAL SUBCUT SCH (08:37)
[2016-09-08] MEDS: CMCS Midodrine (NF) 5 MG TAB PO SCH (08:37)
[2016-09-08] MEDS: Nystatin SUSPENSION* 100000 UNITS/ML 5 ML UDC PO SCH ×2 (08:37→12:17)
[2016-09-08 08:40] LABS: Hematocrit 26 % (42-52); Hemoglobin 8.8 g/dl (14.0-18.0); Mean Corpuscular HGB Conc 33 g/dl (31-36); Mean Corpuscular Hemoglobin 34 pg (27-31); Mean Corpuscular Volume 103 fL (80-94); Mean Platelet Volume 10 um3 (7.4-10.4); Red Blood Count 2.56 10^6/ul (4.0-5.4); Red Cell Distribution Width 26 % (10.5-15); White Blood Count 7.3 10^3/ul (3.5-10.8)
[2016-09-08 08:44] LABS: Comments Flag Yes
[2016-09-08 08:45] LABS: Add Diff/Slide Review? Slide Review Added
[2016-09-08 08:57] LABS: BUN/Creatinine Ratio 12.9 (8-20); Calcium 8.6 mg/dL (8.6-10.3); EGFR African American 14.6 (>60); EGFR Non-African American 11.4 (>60); Potassium 4.2 mmol/L (3.5-5.0)
--- NOTE | 2016-09-08 10:00 | PN ---
Subjective Date of Service: 09/08/16 Interval History: Mr. Robertson is OOB to chair. Denies any acute complaints, including CP, SOB, abd pain, n/v. Tolerating breakfast. Would like to go home. Family History: Unchanged from Admission Social History: Unchanged from Admission Past Medical History: Unchanged from Admission Objective Active Medications: Citric Acid/Sodium Citrate (Bicitra*) 15 ml PO TID [facility] Last Admin: 09/08/16 08:33 Dose: 15 ml Ferrous Gluconate (Fergon Tab*) 324 mg PO DAILY [facility] Last Admin: 09/08/16 08:37 Dose: 324 mg Ceftriaxone Sodium 1 gm/ (Sodium Chloride) 50 mls @ 200 mls/hr IVPB Q24H [facility] Last Admin: 09/07/16 09:26 Dose: 200 mls/hr Lactulose (Lactulose*) 30 ml PO Q4H [facility] Last Admin: 09/08/16 08:33 Dose: 30 ml Midodrine (Midodrine (Nf)) 5 mg PO TID [facility] PRN Reason: Protocol Last Admin: 09/08/16 08:37 Dose: 5 mg Nystatin (Nystatin Suspension*) 200,000 units PO QID [facility] Last Admin: 09/08/16 08:37 Dose: 200,000 units Octreotide Acetate (Octreotide Acetate*) 100 mcg SUBCUT TID [facility] Last Admin: 09/08/16 08:37 Dose: 100 mcg Omeprazole (Prilosec Cap*) 40 mg PO DAILY [facility] Last Admin: 09/08/16 08:36 Dose: 40 mg Ondansetron HCl (Zofran Inj*) 4 mg IV Q6H PRN PRN Reason: NAUSEA Prednisone (Deltasone Tab*) 20 mg PO BID [facility] Last Admin: 09/08/16 08:33 Dose: 20 mg Rifaximin (Xifaxan*) 550 mg PO BID [facility] Last Admin: 09/08/16 08:33 Dose: 550 mg Spironolactone (Aldactone Tab*) 25 mg PO BID [facility] Last Admin: 09/08/16 08:37 Dose: 25 mg Vital Signs 09/07/16 09/07/16 09/07/16 15:39 20:00 23:23 Temperature 96.7 F 98.2 F Pulse Rate 68 58 Respiratory 16 18 Rate Blood Pressure 183/81 147/78 (mmHg) O2 Sat by Pulse 100 98 Oximetry Oxygen Devices in Use Now: None Appearance: Male patient, OOB to chair, conversive and responds appropriately, NAD Eyes: - - scleral icterus Ears/Nose/Mouth/Throat: Clear Oropharnyx, Mucous Membranes Moist Neck: NL Appearance and Movements; NL JVP Respiratory: Symmetrical Chest Expansion and Respiratory Effort, Clear to Auscultation Cardiovascular: NL Sounds; No Murmurs; No JVD, RRR Abdominal: NL Sounds; No Tenderness; No Distention Extremities: - - 2+ pitting edema to BLE Skin: No Rash or Ulcers Neurological: Alert and Oriented x 3, NL Muscle Strength and Tone Lines/Tubes/Other Access: Clean, Dry and Intact Peripheral IV Nutrition: Taking PO's Result Diagrams: 09/08/16 08:21 09/08/16 08:21 Microbiology and Other Data: Microbiology 09/05/16 06:25 Stool Occult Blood (ETHEL) - Final Stool Assess/Plan/Problems-Billing Assessment: 76 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 coli) on urine culture Also anemia All of above can be etiology for onset of HE Improving with abx and restarting lactulose (2) Anemia Code(s): D64.9 - ANEMIA, UNSPECIFIED Comment: Suspect hemolytic anemia No e/o GI bleed, no varices on recent EGD No e/o RP bleed or hematoma in thigh, which he injured in recent fall Suspect hemolysis - elevated LDH, indirect bili, weakly positive Lucas Fibrinogen decreased, raising concern for DIC, although could be decreased due to liver dz. Pt has no bleeding anywhere at this point (IV sites, mouth). +thrombocytopenia, but suspect in setting of underlying liver dz. Also Dr. Ziegler noted they are very small on slide and reported value likely underestimates true value. Ceftriaxone for SBP prophylaxis in setting of potential bleed and for UTI. EPO normal - may benefit from erythropoeitin injections outpatient. Cryoglobulin and cold agglutinin pending (3) Cryptogenic cirrhosis Code(s): K74.69 - OTHER CIRRHOSIS OF LIVER Comment: Toxin (hydrocarbins) vs autoimmune suspected. Pt could not tell me his spice fumigator. He does have an appt on Friday. Continue rifaximin, lactulose, midodrine, octreotide. Aldactone restarted 09/06 MELD 36 (09/04) confirming about a 50% 3 month mortality Prednisone for potential autoimmune etiology (4) UTI (urinary tract infection) Comment: E. coli on urine culture Continue ceftriaxone. Finished 5 day treatment, less than 100,000 colony growth (5) Lactic acid acidosis Code(s): E87.2 - ACIDOSIS Comment: In setting of anemia, liver disease, and UTI Resolved with transfusion PRBC (6) Chronic kidney disease, stage IV (severe) Code(s): N18.4 - CHRONIC KIDNEY DISEASE, STAGE 4 (SEVERE) Comment: Continue to renally dose medications. S/p blood transfusion Avoid nephrotoxic medications (7) DVT prophylaxis Code(s): FBG0197 - Comment: SCDs, no pharmaxcologic prophylaxis due to thrombocytopenia Status and Disposition: Inpatient admission. D/c to home.
[2016-09-08] MEDS: cefTRIAXone(*) 1 GM in NS 0.9% 50 ML* 50 ML IVPB SCH (10:14)
[2016-09-08 13:37] VITALS: BP 141/71
--- NOTE | 2016-09-10 23:47 | DS ---
CC: Srinivas Nowak MD; Srinivas Ziegler MD MEDICINE DISCHARGE SUMMARY: DATE OF ADMISSION: 09/03/16 DATE OF DISCHARGE: 09/08/16 PRIMARY CARE PHYSICIAN: Srinivas Nowak MD. CONSULTING PHYSICIAN: Srinivas Ziegler MD, Hematology. ATTENDING PHYSICIAN: Michelle Asher MD (as dictated by Abdirashid Horner NP). PRIMARY DISCHARGE DIAGNOSES: 1. Hepatic encephalopathy. 2. Cryptogenic cirrhosis. 3. Anemia. 4. Escherichia coli positive urinary tract infection. SECONDARY DISCHARGE DIAGNOSES: 1. Chronic kidney disease, stage 4. 2. Liver cirrhosis. 3. Basal cell carcinoma. 4. Prostate cancer. HOME MEDICATIONS AT DISCHARGE: 1. Omeprazole 40 mg daily. 2. Octreotide 100 mg subcu t.i.d. 3. Midodrine 5 mg t.i.d. 4. Lactulose 30 mL 4 times a day. 5. Rifaximin 550 mg b.i.d. 6. Spironolactone 25 mg b.i.d. 7. Prednisone 20 mg b.i.d. 8. Bicitra 15 mL t.i.d. 9. Nystatin 200,000 units 4 times daily. 10. Ferrous gluconate 324 mg daily. HOSPITAL COURSE OF STAY: For full details, please refer to the full medical record. In summary, Ms Pebbles Lozano is a 76-year-old male patient, who presented to the hospital with increased confusion. Family did report that the patient had been incontinent of urine and stool multiple times prior to evaluation in the ER and that he was confused as to where to go to the bathroom as well as more somn olent. In the ER, it was noted that his bicarb was 14 and his creatinine was 4.89, which was around his baseline. The patient had concern for hepatic encephalopathy and was admitted for further mark toring and treatment. The patient did report that he had skipped a dose on Easter. It appears that he actually had skippe d multiple doses of lactulose as well as medications. He was treated here with lactulose and restarted on all those medications. It was also noted from his UA that he had concern for a urinar y tract infection, which also may have been contributing to his altered mental status. He has been treated with ceftriaxone for this. His urine culture did grow out E. coli. Additionally, the patie nt had concern for anemia, though there had been no evidence of GI bleed or varices on a recent EGD. The patient did have a CT of the abdomen and pelvis to rule out retroperitoneal bleeding or hemato ma and there was no evidence of this seen on CT. He does have decreased fibrinogen, but it was felt that this might be secondary to his liver disease. The patient did have a Hematology consult and l abs were set up for cryoglobulin and cold agglutinin, which were still pending at the time of discha rge. The patient does have a low to normal erythropoietin level and may benefit from outpatient yadira thropoietin injections. The patient did receive 2 units of blood and prior to discharge, he was abl e to demonstrate stable hemoglobin and hematocrit. No further interventions were needed. The patie nt will follow up with Hematology. On the day of discharge, the patient was noted in his baseline for his mental state per his and family members. We did discuss the importance of medication adherence in order to prevent encephal opathy recurring. The patient has expressed frustration, but is willing to continue with his medica tions. All the members of the patient's medical team agree that it is most important for him to julia e it to [place] for his appointment with his latin american studies director at [facility] [place] in order to determine his next course of action and his chance for a liver transplant. We have continued him on all his regular medications and he has been continued on Bicitra for his chronic renal disease and low bicar bonate as well as prednisone, which he was previously on for autoimmune involvement of his li iam disease and cirrhosis. The patient did receive a full 5-day treatment of antibiotics for a susp ected UTI. His culture did show less than 100,000 colony count. He was not discharged on any antib iotics. CONCERNS AT DISCHARGE: Mr. Lozano was discharged to home on 09/08/16 with a plan to follow up w ith his PCP as well as with his latin american studies director on Friday. Dr. Ziegler's office will call us to make an appointment in followup with Hematology. DIET: Renal diet, low sodium diet. ACTIVITY: As tolerated. CONDITION: Improved, stable. DISPOSITION: To home. TIME SPENT: Time spent on this discharge was approximately 50 minutes. Again, this is only a brief summary of the patient's hospital course of stay. For full details, ple ase refer to the full medical record. If you have any further questions or need further assistance, please feel free to contact me at [place] [id number]/[facility] #: [id number]
== END 2016-09-08 14:10 | disposition home or self-care (01) | DRG 808 ==
LOC: ED 16:46 → MED 18:20 → OBSVTOIN 09-04 09:30
PROVIDERS: ADMIT Internal Medicine; ATTEND Internal Medicine
PROC: 30233N1 Transfusion of Nonautologous Red Blood Cells into Peripheral Vein, Percutaneous Approach (ICD-10-PCS; principal; 2016-09-04)
DX: D59.4 Other nonautoimmune hemolytic anemias (principal); K72.00 Acute and subacute hepatic failure without coma; N18.4 Chronic kidney disease, stage 4 (severe); E87.2 Acidosis; D69.59 Other secondary thrombocytopenia; K74.69 Other cirrhosis of liver; N39.0 Urinary tract infection, site not specified; D62 Acute posthemorrhagic anemia; B96.20 Unspecified Escherichia coli [E. coli] as the cause of diseases classified elsewhere; Z96.653 Presence of artificial knee joint, bilateral; Z85.46 Personal history of malignant neoplasm of prostate; Z85.828 Personal history of other malignant neoplasm of skin; Z80.7 Family history of other malignant neoplasms of lymphoid, hematopoietic and related tissues; Z80.0 Family history of malignant neoplasm of digestive organs; Z82.49 Family history of ischemic heart disease and other diseases of the circulatory system; Z87.891 Personal history of nicotine dependence
CPT/HCPCS: 36415; 74176; 80048; 80053; 80076; 81003; 81015; 81256; 82140; 82272; 82595; 82668; 83010; 83605; 83615; 83690; 85014; 85018; 85025; 85045; 85060; 85384; 85610; 85730; 86157; 86850; 86880; 86900; 86901; 86922; 87077; 87086; 87186; 99232; 99254; A9270-GY; G0378; J0696; J7512; P9016; P9040

== ENCOUNTER 2016-10-01 12:01 | Inpatient (IN) | payer MEDICARE ==
[2016-10-01] MEDS ORDERED: Aspirin Low Dose CHEW TAB* 81 MG PO ONE (12:15)
[2016-10-01 13:02] LABS: Albumin 2.8 g/dL (3.2-5.2); BUN/Creatinine Ratio 12.2 (8-20); Calcium 8.1 mg/dL (8.6-10.3); EGFR African American 7.7 (>60); Globulin 2.4 g/dL (2-4); Magnesium 2.5 mg/dL (1.9-2.7); Potassium 5.6 mmol/L (3.5-5.0); Total Bilirubin 8.3 mg/dL (0.2-1.0); Total Protein 5.2 g/dL (6.4-8.9)
[2016-10-01 13:07] LABS: Troponin I 2.16 ng/mL (<0.04)
[2016-10-01 13:13] LABS: EPAP 7; FIO2 100; IPAP 16; Resp Rate 12
[2016-10-01 13:22] LABS: PCO2 Arterial 14 mmHg (35-45)
[2016-10-01] MEDS ORDERED: Dextrose 50% Syringe 50 ML* 25 GM/50 ML SYRINGE ONE (13:24)
--- NOTE | 2016-10-01 13:24 | RAD ---
INDICATION: Unresponsiveness COMPARISON: Most recent comparison chest x-rays dated July 24, 2016 TECHNIQUE: Single AP portable view of the chest was obtained. FINDINGS: Image quality is compromised due to the relative inferiority of a portable chest x-ray. Similar the previous chest x-ray there is mild cardiomegaly. There is mild calcification overlying the arch of the aorta. There are patchy reticulonodular densities concentrated in the lungs overlying the bilateral ghada. The pulmonary vasculature appears engorged. The costophrenic angles are poorly defined with blunting at the left lung base. Visualized bones are normal for the patient's age. IMPRESSION: Chest x-ray findings are most consistent with cardiogenic pulmonary edema. Other potential etiologies could include pneumonitis, ARDS or drug toxicity.
[2016-10-01 13:26] LABS: Hematocrit 34 % (42-52); Hemoglobin 10.4 g/dl (14.0-18.0); Mean Corpuscular HGB Conc 31 g/dl (31-36); Mean Corpuscular Hemoglobin 37 pg (27-31); Mean Platelet Volume 10 um3 (7.4-10.4); Red Blood Count 2.84 10^6/ul (4.0-5.4); Red Cell Distribution Width 24 % (10.5-15); White Blood Count 5.2 10^3/ul (3.5-10.8)
[2016-10-01 13:33] LABS: Comments Flag Yes
[2016-10-01 13:34] LABS: Add Diff/Slide Review? Slide Review Added; Mean Corpuscular Volume 119 fL (80-94)
[2016-10-01] MEDS ORDERED: Metoprolol Tartrate IV* 1 MG/ML 5 ML VIAL ONE (14:03)
[2016-10-01 14:04] LABS: EPAP 7; FIO2 100; IPAP 12; Resp Rate 12
[2016-10-01 14:12] LABS: PCO2 Arterial 15 mmHg (35-45)
[2016-10-01] MEDS ORDERED: Furosemide IV* 10 MG/ML 10 ML VIAL (100 MG) IV ONE (14:30)
--- NOTE | 2016-10-01 14:39 | HP ---
H&P (Free Text) History and Physical: History and Physical - Critical Care Requesting Physician: Hugo Pino Reason for consult: respiratory distress Limitations in history/physical: respiratory distress, history from son and Date of consult: 10/01/2016 HPI: 76y M w/ pmhx of Cryptogenic Cirrhosis, CKD stage IV, h/o hepatic encephalopathy and recent UTI 08/2016; He comes in for onset of progressive shortness of breath from home for the past few days, family denies cough/sputum/ fever/chills/n/v/abdpain/diarrhea/sick contacts. He was compliant with medications. Makes some urine. Progressive swelling over legs and body noted past few days but has been swelling up for months now. Bruising+ from prior to. Denies burning urination. Distant smoking history only, no history of COPD/ asthma. As per family, he was suppose to see the marketing professor tomorrow for possible initiation of HD. He has had a workup for cirrhosis and no clear etiology has been found, suspected toxic etiology. EMS arrival sats were 70-80s, started on NRM; found to be in resp distress. ER- tachypneic, sats 70-80s, started on NIV; when I saw him looks tachypneic but slowly more comfortable. Afebrile. Family at bedside. ROS: general, CVS, Resp, abdomen, neuro, endocrine, genitourinary, psychiatric negative, except pertinent positive/negatives as above. PMHx: cryptogenic cirrhosis, CKD IV, anemia, hepatic encephalopathy, thrombocytopenia; basal cell carcinoma, prostate cancer PSHx: radical prostatectomy, hernia repair, bilateral knee replacements Family History: Mother - CAD and lymphoma; Father - Colon Ca Social History: Former smoker; Does not drink alcohol, Lives with ; surrogate decision makers are children and . Allergies: NKDA Home Medications: Omeprazole CAP* [Prilosec CAP* 20 MG] 40 mg PO DAILY 07/24/16 [History Confirmed 10/01/16] Lactulose* 30 ml PO QID #3600 ml 08/01/16 [Rx Confirmed 10/01/16] Midodrine (NF) 5 mg PO TID #90 tab 08/01/16 [Rx Confirmed 10/01/16] Octreotide Acetate* 100 mcg SUBCUT TID #90 vial 08/01/16 [Rx Confirmed 10/01/16] RiFAXimin* [Xifaxan*] 550 mg PO BID #60 tab 08/01/16 [Rx Confirmed 10/01/16] Spironolactone TAB* [Aldactone TAB 25 MG*] 25 mg PO BID #60 tab 08/01/16 [Rx Confirmed 10/01/16] Ferrous Gluconate TAB* [Fergon TAB*] 324 mg PO DAILY tab 09/08/16 [Rx Confirmed 10/01/16] Nystatin SUSPENSION* 200,000 units PO QID #1 bottle 09/08/16 [Rx Confirmed 10/01] Sodium Citrate/Citric Acid* [Bicitra*] 15 ml PO TID #1 bottle 09/08/16 [Rx Confirmed 10/01/16] predniSONE TAB* [Deltasone TAB*] 40 mg PO DAILY 10/01/16 [History Confirmed ] Tele: NSR Vitals: Vital Signs Temp 96 F 10/01/16 13:22 Pulse 100 10/01/16 13:22 Resp 31 10/01/16 13:22 BP 110/48 10/01/16 13:22 Pulse Ox 91 10/01/16 13:22 Intake & Output 09/30/16 10/01/16 10/01/16 18:59 06:59 18:59 Weight 250 lb O2/Vent: NIV 12/7, 50%; TV 600-800, RR 24, sat 97% Infusions: none Current Medications: Lactulose (Lactulose*) 30 ml PO TID SENTHIL Nystatin (Nystatin Suspension*) 200,000 units PO QID SENTHIL Octreotide Acetate (Octreotide Acetate*) 100 mcg SUBCUT TID SENTHIL Omeprazole (Prilosec Cap*) 40 mg PO DAILY@0730 [facility] Prednisone (Deltasone Tab*) 40 mg PO DAILY SENTHIL Rifaximin (Xifaxan*) 550 mg PO BID [facility] Physical Exam: General: awake, alert, mild resp distress, now improved, no diaphoresis Head: normocephalic, atraumatic HEENT: no pallor, +icterus, moist mucous membranes; mild swelling around the eyes Neck: soft, supple, no jvd, no stridor CVS: normal rate, normal rhythm, no murmur Resp: bilateral air entry, mild scattered rhales, no wheeze, no rhonchi, acc muscle use on presentation but improved on NIV Abdomen: soft, nontender, nondistended, bowel sounds present Ext: pulses+, warm, Edema3++ with generalized anasarca+ Skin: intact; areas of eccymosis and bruising on LE b/l; chest wall petechia+ Neuro: awake, alert, orientedx3, moving all extremities, no gross focal deficit ; mild tremors noted Labs: Laboratory Results - last 24 hr 10/01/16 10/01/16 10/01/16 12:15 12:15 12:15 WBC 5.2 RBC 2.84 L Hgb 10.4 L Hct 34 L MCV 119 H MCH 37 H MCHC 31 RDW 24 H Plt Count 44 L MPV 10 Neut % (Auto) 93.2 H Lymph % (Auto) 4.8 L Hamilton % (Auto) 1.3 Eos % (Auto) 0.1 Baso % (Auto) 0.6 Absolute Neuts (auto) 4.9 Absolute Lymphs (auto) 0.3 L Absolute Monos (auto) 0.1 Absolute Eos (auto) 0 Absolute Basos (auto) 0 Absolute Nucleated RBC 0.01 Nucleated RBC % 0.2 APTT Patient Temperature ABG pH ABG pCO2 ABG pO2 ABG HCO3 ABG O2 Saturation ABG Base Excess Respiration Rate O2 Delivery Device Ventilator Type Vent Mode FiO2 Inspiratory Time PEEP Pressure Support Pressure Control EPAP IPAP BiPAP Sodium 137 Potassium 5.6 H Chloride 110 Carbon Dioxide 9 L* Anion Gap 18 H BUN 105 H Creatinine 8.64 H Est GFR ( Amer) 7.7 Est GFR (Non-Af Amer) 6.0 BUN/Creatinine Ratio 12.2 Glucose 48 L Lactic Acid 9.0 H* Calcium 8.1 L Magnesium 2.5 Total Bilirubin 8.30 H AST 101 H ALT 54 H Alkaline Phosphatase 129 H Total Creatine Kinase 519 H Myoglobin 2550.0 H Troponin I 2.16 H* B-Natriuretic Peptide Total Protein 5.2 L Albumin 2.8 L Globulin 2.4 Albumin/Globulin Ratio 1.2 10/01/16 10/01/16 10/01/16 12:15 12:15 12:45 WBC RBC Hgb Hct MCV MCH MCHC RDW Plt Count MPV Neut % (Auto) Lymph % (Auto) Hamilton % (Auto) Eos % (Auto) Baso % (Auto) Absolute Neuts (auto) Absolute Lymphs (auto) Absolute Monos (auto) Absolute Eos (auto) Absolute Basos (auto) Absolute Nucleated RBC Nucleated RBC % APTT 63.3 H Patient Temperature Not Reportable ABG pH 7.08 L* ABG pCO2 14 L* ABG pO2 330 H ABG HCO3 6.4 L* ABG O2 Saturation 99.9 H ABG Base Excess -23.8 L Respiration Rate 12 O2 Delivery Device Ventilator Type Not Reportable Vent Mode Not Reportable FiO2 100 Inspiratory Time Not Reportable PEEP Not Reportable Pressure Support Not Reportable Pressure Control Not Reportable EPAP 7 IPAP 16 BiPAP Not Reportable Sodium Potassium Chloride Carbon Dioxide Anion Gap BUN Creatinine Est GFR ( Amer) Est GFR (Non-Af Amer) BUN/Creatinine Ratio Glucose Lactic Acid Calcium Magnesium Total Bilirubin AST ALT Alkaline Phosphatase Total Creatine Kinase Myoglobin Troponin I B-Natriuretic Peptide 2156 H Total Protein Albumin Globulin Albumin/Globulin Ratio 10/01/16 13:56 WBC RBC Hgb Hct MCV MCH MCHC RDW Plt Count MPV Neut % (Auto) Lymph % (Auto) Hamilton % (Auto) Eos % (Auto) Baso % (Auto) Absolute Neuts (auto) Absolute Lymphs (auto) Absolute Monos (auto) Absolute Eos (auto) Absolute Basos (auto) Absolute Nucleated RBC Nucleated RBC % APTT Patient Temperature Not Reportable ABG pH 7.09 L* ABG pCO2 15 L* ABG pO2 177 H ABG HCO3 6.8 L* ABG O2 Saturation 100.5 H ABG Base Excess -23.2 L Respiration Rate 12 O2 Delivery Device bipap Ventilator Type Not Reportable Vent Mode Not Reportable FiO2 100 Inspiratory Time Not Reportable PEEP Not Reportable Pressure Support Not Reportable Pressure Control Not Reportable EPAP 7 IPAP 12 BiPAP Not Reportable Sodium Potassium Chloride Carbon Dioxide Anion Gap BUN Creatinine Est GFR ( Amer) Est GFR (Non-Af Amer) BUN/Creatinine Ratio Glucose Lactic Acid Calcium Magnesium Total Bilirubin AST ALT Alkaline Phosphatase Total Creatine Kinase Myoglobin Troponin I B-Natriuretic Peptide Total Protein Albumin Globulin Albumin/Globulin Ratio Imaging: cxr 10/01 - increased pulm interstitial markings as compared to last cxr; no clear focal consolidation/infiltrate; no effusion, no ptx. EKG reviewed - no acute ST/T changes, qtc 450, low voltage throughout. Assessment: 76y M with history of Cryptogenic Cirrhosis, CKD IV; who comes in with respiratory distress progressively ongoing for days, was nearing the point of starting HD in the coming days. -Acute Hypoxic Respiratory Failure -Pulmonary Congestion -Generalized anasarca/volume overload -CHAR on CKD; progressive decline -Metabolic Acidosis, Lactic acidosis -Hyperkalemia -Cryptogenic Cirrhosis -Coagulopathy -Thrombocytopenia -Rhabdomyolysis -NSTEMI -CHF, Diastolic Heart Failure Plan: Neuro- stable. history of hepatic encephelopathy, cont lactulose and rifaxamin. check ammonia level. neurochecks while on bipap. fall prec. asp prec. CVS- MAPs in 60s, warm and perfusing. lactic acid elevated, no clear sepsis. check urine and send blood cx. overall grossly overloaded. is lactic acid from decompensated/endstage cirrhosis? no abdominal pain or tenderness. trend lactic acid. will need central line, CVP monitoring and possibility of pressors. ECHO today. EKG reviewed and no signs of ischemic changes but low voltage is noted. trend troponin but this may just be accumulation of enzymes in settings of CKD/ CHAR. Resp- hypoxic, pulm congestion on cxr, without clear infiltrate. maintain on NIV. ABGs not as hypoxic but pt trying to compensate for metabolic acidosis with resp alkalosis but remains uncompensated. Holding steady on NIV. May need HD for correction of acidosis. ID- afebrile, wbc normal. no clear infection. send blood culture and urine culture/analysis. hold abx at this time. GI- labs reviewed, cirrhosis from unclear etiology. GI consult. coagulopathic. Give VitK. NPO on bipap. Trend lipase/amylase. trend CPK to rule out any ischemic bowel but clinically no signs. GI prophylaxis. lactulose/rifaxamin for hepatic encephelopathy prevention. check ammonia level. Unclear prison goal when he has cirrhosis and not a transplant candidate either. has been on steroids prednisone 20mg tid; if there is a vasculitis underlying given this petechia/thrombocytopenia and now rhabdo, may consider some pulse steroids? but may not benefit if cirrhosis has progressed. Vit K 10mg IV x1 to see if any factor production possible. Renal- progressive CHAR on CKD. hepatorenal syndrome? volume depletion? rhabdo causes acute failure? Renal consult called, discussed case. Metabolic acidosis, hyperkal, volume overload. Will trial diuresis with lasix 200mg. If no sig change, then discussed with family about urgent HD tonight, cathetor placement bedside. They understood high risk state of bleeding, and unlikely change in prognosis given cirrhosis. give calcium gluconate 2gm IV x1 now. repeat BMP at 6pm. consents for HD cathetor done. hold aldactone, patient has been off. Heme-anemia, chronic disease. Thrombocytopenia likely form sequestration or poor production in settings of cirrhosis. Component of uremic platelets also given CKD IV. Consents for blood products done. Will need platelet, FFP and desmopressin prior to procedures being done. INR noted 2.6, plt 44k Endo- FS as needed. Musculsk- rhabdo, unclear why. trend cpk. can't given IVF. May be adding to CHAR now also. Wounds- none. pressure ulcer prophlyaxis. areas of eccymosis from injury/ spontaneous in setting of coagulopathy. Nutrition-NPO DVT prophylaxis: SCDs, no chemical given thrombocytopenia/coagulopathy GI prophylaxis: PPI Central Line: no Arterial Line: no Lam Cathetor: yes, for i/o monitoring in state of CHAR Disposition: admit to ICU for respiratory failure, anasarca and CHAR on CKD Code Status: full code Total Critical Care time is 90 minutes, excluding procedures/teaching Curly Gray MD Acid Conditioning Worker (Electronically Signed)
--- NOTE | 2016-10-01 15:51 | ECHO ---
Patient: NARESH FUCHS [facility] Rec#: [id number] : 1940 Date: 10/01/2016 Age: 76y Height: 172.72 cm / 68.0 in Weight: 113.4 kg / 249.9 lbs Sex: M BSA: 2.25 Admit Date#: 10/01/2016 Type: Inpatient Referring: Curly Gray Reading: Ze Antunez MD Surveillance Specialist: Chante Gardner,MAGOCS,RDMS CC: Srinivas Nowak MD Transthoracic Echocardiogram Indication: Edema, shortness of breath BP: 110/48 HR: 88 Rhythm: NSR Indications Edema Findings History: Cryptogenic cirrhosis, CKD, hepatic encephalopathy, former smoker. Technical Comments: The study quality is fair. Completed 1534 The study was technically limited due to the patient's inability to lay in the left lateral decubitus position. Left Ventricle: The left ventricular chamber size is normal. Mild concentric left ventricular hypertrophy is observed. Global left ventricular wall motion and contractility are within normal limits. There is normal left ventricular systolic function. The estimated ejection fraction is 55-60%. Abnormal left ventricular diastolic filling is observed, consistent with impaired relaxation. Left Atrium: The left atrium is mildly dilated. Right Ventricle: The right ventricular chamber size and systolic function are within normal limits. Right Atrium: The right atrium is not well visualized. Aortic Valve: The aortic valve is trileaflet. The aortic valve leaflets are mildly thickened. There is no evidence of aortic regurgitation. There is no evidence of aortic stenosis. Mitral Valve: The mitral valve leaflets are mildly thickened. There is no evidence of mitral regurgitation. There is no evidence of mitral stenosis. Tricuspid Valve: The tricuspid valve leaflets are normal. There is trace tricuspid regurgitation. Unable to estimate the right ventricular systolic pressure. Pulmonic Valve: The pulmonic valve appears normal. There is a trace pulmonic regurgitation. Pericardium: There is no significant pericardial effusion. Aorta: There is borderline dilatation of the ascending aorta. The aortic arch is not well visualized. The aortic root is normal in size. Pulmonary Artery: The main pulmonary artery appears normal. Venous: The inferior vena cava is not visualized. Conclusions Mild concentric left ventricular hypertrophy is observed. Global left ventricular wall motion and contractility are within normal limits. There is normal left ventricular systolic function. The estimated ejection fraction is 55-60%. The right ventricular chamber size and systolic function are within normal limits. The aortic valve leaflets are mildly thickened. There is no evidence of aortic regurgitation. There is no evidence of mitral regurgitation. There is trace tricuspid regurgitation. Unable to estimate the right ventricular systolic pressure. There is no significant pericardial effusion. Compared to study of 07/19/16, the LV function and valve structures are the same. the pericardial effusion is no longer seen Measurements Name Value Normal Range RVIDd (AP) 2D 3 cm (0.9 - 2.6) RVDdMajor (2D) 3.6 cm (2.2 - 4.4) IVSd (2D) 1.4 cm (0.6 - 1) LVPWd (2D) 1.2 cm (0.6 - 1) LVIDd (2D) 4.6 cm (3.6 - 5.4) LVIDs (2D) 2.6 cm - LV FS (2D) 45 % (25 - 45) Aortic Annulus 2 cm (1.4 - 2.6) Ao root diameter (2D) 3.3 cm (2.1 - 3.5) Ascending Ao 3.5 cm (2.1 - 3.4) LA dimension (AP) 2D 4.6 cm (2.3 - 3.8) LAd ISD 4CH 5.6 cm (2.9 - 5.3) LA ISD 4CH W 3.7 cm (2.5 - 4.5) Name Value Normal Range LA ESV SP 4CH (A/L) 47.58 ml - LA ESV SP 4CH (MOD) 44.03 ml - Name Value Normal Range MV E-wave Vmax 0.7 m/sec - MV deceleration time 170 msec - MV A-wave Vmax 0.9 m/sec - MV E:A ratio 0.8 ratio - LV septal e' Vmax 0.05 m/sec - LV lateral e' Vmax 0.09 m/sec - LV E:e' septal ratio 14 ratio - LV E:e' lateral ratio 8 ratio - Name Value Normal Range AV Vmax 1.4 m/sec - AV VTI 26.2 cm - AV peak gradient 8 mmHg - AV mean gradient 5.3 mmHg - LVOT Vmax 0.8 m/sec - LVOT VTI 18.1 cm - LVOT peak gradient 2.6 mmHg - LVOT mean gradient 1.2 mmHg - Name Value Normal Range MV Vmax 1.1 m/sec - MV VTI 27 cm - MV peak gradient 5 mmHg - MV mean gradient 2.1 mmHg - MV PHT 43 msec - MVA (PHT) 5.1 cm2 - Name Value Normal Range RAP 8 mmHg - Name Value Normal Range PV Vmax 0.6 m/sec - PV peak gradient 1.4 mmHg -
[2016-10-01] MEDS ORDERED: Phytonadione INJ (Adult)* 10 MG in NS 0.9% 50 ML* 50 ML IV ONE (16:02)
[2016-10-01] MEDS ORDERED: nitroGLYCERIN DRIP* 25,000 MCG in PREMIX* 0 ML IV SCH (18:00)
--- NOTE | 2016-10-01 18:22 | PN ---
Progress Note - Progress Note Note: Discussed with family about current status of patient After 200mg IV lasix, no urine output noted On NIV, less respiratory distress, remains lethargic. Dr Estevez came by and discussed risk of HD, bleeding, intubation and no significant vermin exterminator change in status given underlying cirrhosis. I discussed about coagulopathy/thrombocytopenia and risk of hemorrhage/bleeding during line placement as well as risk of being intubated during line placement given respiratory failure. Patient has stated to family in rudy past he would not want to be on ventilator at all. He has also stated to them he would not want to be on dialysis if it would be forever/assisted. After discussions about current medical condition, resp distress from pulm edema /metabolic acidosis with highlikihood of intubation being necessary in coming hours, risk of hemorrhage, acidosis from renal failure, underlying cirrhosis, risk of cardiac arrest; they decided that they would follow his wishes and like comfort care with DNR/DNI. No HD at this time. They wish to keep him going till other son flies in from [facility]. Nursing staff, documentation has been filled out. Family all understanding of current critical status. They also understand prognosis of cirrhosis. They wish to follow patients wishes for comfort measures. They also understand this may not change overall outcome given his underlying comorbidities and organ failure. Patient will be DNR/DNI No further blood draws. NTG infusion for resp distress and pulm congestion No cathetor placement at this time. Morphine PRN for resp distress and pain; currently no pain stated by patient. Scopalamine patch for secretions Palliative care consult in AM Total Critical Care time 30 minutes, not including procedures Critical Care time Curly Gray Street Openings Inspector
[2016-10-01] MEDS: Nystatin SUSPENSION* 100000 UNITS/ML 5 ML UDC PO SCH ×2 (18:33→21:18)
[2016-10-01 20:20] VITALS: BP 112/45
[2016-10-01] MEDS ORDERED: Octreotide Acetate* 100 MCG/ML 1 ML VIAL SUBCUT SCH (21:00)
[2016-10-01] MEDS ORDERED: RiFAXimin* 550 MG TAB PO SCH (21:00)
[2016-10-01] MEDS ORDERED: Atropine 1% (ORAL/SL)* 15 ML BTL SL PRN (21:48)
[2016-10-01] MEDS: Morphine INJ* 2 MG/ML 1 ML SYRINGE IV PRN (22:44)
--- NOTE | 2016-10-01 23:43 | PN ---
PROGRESS NOTE: DATE OF VISIT: 10/01/16 HISTORY: Mr. 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 Since discharge from the hospital a few weeks ago, he has been steadily gaining fluid and he rapidly became short of judith ath. He has had some occasions of orthopnea. He has had some anorexia. He has developed some ecch ymosis to his lower extremities. He has increase in his abdominal girth and his levels of edema. A t the present time, while slow to mentation, he does answer questions appropriately, but he is on a nasal CPAP and as a result, a significant portion of the history is taken from his family. PHYSICAL EXAMINATION: On physical examination at the present time, his blood pressure is 110/48 wit h a pulse of 100, respirations are 31. His O2 saturation was 100%. He shows scleral icterus. I di d not remove his CPAP mask in order to inspect the oropharynx. He had no hepatojugular reflux. His chest revealed diffuse rales. Of significance, there were petechiae noted to the upper chest. The heart revealed a regular rhythm. I did not hear any murmurs. The abdomen is nontender. Bowel soun ds are positive. I could not feel the liver margin. There was a positive fluid wave. He had 3+ ed cash all the way up his legs to his buttocks. There were ecchymoses to his lower extremities, which his family says is rather new. On neurologic, he is awake and responding to questions. He had posi tive asterixis. LABORATORY DATA: A review of his laboratory studies reveals a white count of 5.2, hemoglobin of 10. 4, platelet count of 44,000 and he has been thrombocytopenic for the last 2 months. INR is 2.29. H is pH is 7.08, pCO2 14, O2 330. Sodium of 137, potassium 5.6, total CO2 of 9, chloride 110, anion g ap 18, BUN 105, creatinine 8.64, lactic acid of 9. His myoglobin is 2550, troponin of 2.16, CK of 5 19. The urinalysis is not back yet. IMPRESSION: 1. Cirrhosis with ascites and total body fluid overload. 2. Pulmonary edema. 3. Worsening renal function. 4. Thrombocytopenia. 5. Increased anion gap metabolic acidosis with hyperkalemia. It is highly likely that we are going to need to proceed on with dialysis. Unfortunately, there will be considerable risk for placing th e hemodialysis catheter. It would be nice to treat him with fresh frozen plasma and platelets in or froylan to decrease his bleeding risks. However, that volume would be quite problematic, unless we were able to be removing fluid aggressively and we are likely to put him into worse pulmonary edema and require intubation and ventilation. As a result, I think it is reasonable to attempt high dose diur esis at the present time to see if we can get some fluid out, which would then allow for safer admin istration of fresh frozen plasma and platelets in order to place a dialysis catheter. I have discussed the case at length with Dr. Gray. [id number]/[facility] #: [id number]
[2016-10-02] MEDS: Morphine INJ* 2 MG/ML 1 ML SYRINGE IV PRN (02:21)
[2016-10-02] MEDS ORDERED: Morphine PCA ADULT* 5 MG/ML 30 ML ONE (02:41)
[2016-10-02] MEDS ORDERED: Morphine PCA ADULT* 5 MG/ML 30 ML PCA SCH (03:00)
[2016-10-02] MEDS ORDERED: Omeprazole CAP* 20 MG PO SCH (07:30)
[2016-10-02] MEDS ORDERED: predniSONE TAB* 20 MG PO SCH (09:00)
--- NOTE | 2016-10-02 10:52 | DCNOTE ---
Discharge Summary Patient Name: Justus Lozano ; Date of Admission: 10/01/2016 Date of Discharge: 10/02/2016 Attending: Dr Curly Gray Consultants: Dr López (Nephrology) Admitting Diagnoses: 1) CHAR on CKD, 2) Metabolic Acidosis, Lactic acidosis, 3) Acute Hypoxic Respiratory Failure Discharge Diagnoses: 1) CHAR on CKD, 2) Metabolic Acidosis, Lactic acidosis, 3) Acute Hypoxic Respiratory Failure HPI/Hospital Course: 76y M w/ pmhx of Cryptogenic Cirrhosis, CKD stage IV, h/o hepatic encephalopathy and recent UTI 08/2016; He comes in for onset of progressive shortness of breath from home for the past few days, family denies cough/sputum/fever/chills/n/v/abdpain/diarrhea/sick contacts. He was compliant with medications. Makes some urine. Progressive swelling over legs and body noted past few days but has been swelling up for months now. Bruising+ from prior to. Denies burning urination. Distant smoking history only, no history of COPD/asthma. As per family, he was suppose to see the independent jeweler tomorrow for possible initiation of HD. He has had a workup for cirrhosis and no clear etiology has been found, suspected toxic etiology. EMS arrival sats were 70-80s , started on NRM; Nephrology consult obtained, attempted trial of lasix 200mg no change in urine output, remained anuric essentially. Based on multiple comorbidities and end- organ failure, risk of intubation, we discussed all the risks and current plan for medical care. Family stated patient had stated he never would want to be on a ventilator and he even did not want dialysis if it was for assisted. He was progressively declining and respiratory failure was inevitable and likely to be requiring mechanical ventilation. Hemodialysis would not be shortterm and unclear how rapidly he would be able to be come back to functional status. They understood he had a chronic and progressive underlying cirrhosis of the liver which would also not be correctable. Based on patients wishes expressed to family in prior verbal discussions, the children and significant other made him DNR/DNI and comfort care. They were awaiting a third child to fly in from [place] that night. Over the night he remained on bipap, eventually not wanted it anymore. Respiratory distress progressed, family wished to have morphine for comfort of respiratory distress. Patient eventually at 0335 on 2016 with family at bedside. Dr Lopez was aware and pronounced patient. Fishing Rod Mechanic was called and returned call in the morning, declined case for autopsy. Family would consider to have autopsy performed. Procedures/Imaging: Chest X-Ray. Discharge Medications: none Diet: none Activity: none Condition upon discharge: / at 0335 on 10/02/2016 Disposition: Code Status: DNR/DNI, Comfort care Recommendations: none Follow-up: none Total Discharge time <30minutes Curly Gray MD Regional Training Manager (Electronically Signed)
--- NOTE | 2016-10-04 07:26 | UC ---
heidi Van Timothy, scribed for Hugo Mascorro MD on 10/01/16 at 1222 . Respiratory Complaint HPI - HPI Summary HPI Summary: LEVEL V CAVEAT: PT IS IN RESPIRATORY FAILURE AND CANNOT GIVE MUCH OF A HX Justus King is a 76 yo male presenting to [facility] in respiratory failure. Family is on its way. Pt has renal failure, and was scheduled for dialysis consultation tomorrow. Pt has lost 30 pounds in the last few weeks. Pt had not started dialysis yet, but was supposed to this coming , 10/03/16. His MHx includes HLD, HTN, hepatic encephalopathy, non-alcoholic cirrhosis of the liver, PNA, CKD stage 4, renal insufficiency, inguinal hernia, thrombocytopenia , tobacco use, viral hepatitis. - History of Current Complaint Stated Complaint: SOB Time Seen by Provider: 10/01/16 12:02 Hx Obtained From: Patient Onset/Duration: Sudden Onset, Lasting Minutes, Still Present Severity Initially: Moderate Severity Currently: Moderate Pain Intensity: 0 Pain Scale Used: 0-10 Numeric Associated Signs And Symptoms: Positive: Dyspnea - RESPIRATORY FAILURE - Allergies/Home Medications Allergies/Adverse Reactions: Allergies Allergy/AdvReac Type Severity Reaction Status Date / Time No Known Allergies Allergy Verified 09/24/16 13:07 Home Medications: Home Medications predniSONE TAB* [Deltasone TAB*] 40 mg PO DAILY 10/01/16 [History Confirmed ] PMH/Surg Hx/FS Hx/Imm Hx - Additional Past Medical History Additional PMH: LEVEL V CAVEAT: PT IS IN RESPIRATORY FAILURE AND CANNOT REVIEW HX Cardiovascular History Of: Reports: Hypertension Respiratory History Of: Reports: Pneumonia - Surgical History Surgical History: Yes Surgery Procedure, Year, and Place: HERNIA, PROSTATECTOMY - Family History Known Family History: Positive: Hypertension, Other - Cancer - Social History Alcohol Use: None Substance Use Type: None Smoking Status (MU): Former Smoker - Immunization History Most Recent Influenza Vaccination: Fall 2015 Most Recent Tetanus Shot: Up to date Most Recent Pneumonia Vaccination: 2016 Review of Systems Respiratory: Shortness Of Breath - RESPIRATORY FAILURE All Other Systems Reviewed And Are Negative: No - Comments Additional Review of Systems Comments: LEVEL V CAVEAT: PT IS IN RESPIRATORY FAILURE AND CANNOT REVIEW SYSTEMS Physical Exam Triage Information Reviewed: Yes Appearance: Ill-Appearing - resp distress Vital Signs: Initial Vital Signs Temp 97 F 10/01/16 12:10 Pulse 118 10/01/16 12:10 Resp 36 10/01/16 12:10 BP 149/85 10/01/16 12:10 Pulse Ox 77 10/01/16 12:10 Vital Signs Reviewed: Yes - Additional Comments Constitutional: Well-developed, Well-nourished, Alert. (+) Distressed, Pt is drowsy and lethargic but answers questions. Skin: Warm, Dry HENT: Normocephalic; Atraumatic Eyes: Conjunctiva normal Neck: Musculoskeletal ROM normal neck. (-) JVD, (-) Stridor, (-) Tracheal deviation Cardio: Rhythm regular, rate normal, Heart sounds normal; Intact distal pulses; The pedal pulses are 2+ and symmetric. Radial pulses are 2+ and symmetric. (-) Murmur Pulmonary/Chest wall: Effort normal. (+) Respiratory distress, (-) Wheezes, (+) Rales, tachypnic Abd: Soft, (-) Tenderness, (-) Distension, (-) Guarding, (-) Rebound Musculoskeletal: (++) pitting edema in legs bilaterally and face Lymph: (-) Cervical adenopathy Neuro: Alert, Oriented x3 Psych: Mood and affect Normal UC Diagnostic Evaluation - Laboratory Result Diagrams: 10/01/16 12:15 10/01/16 12:15 - Radiology Xray Interpretation: Positive (See Comments) - see course Radiology Interpretation Completed By: Radiologist Respiratory Course/Dx - Course Course Of Treatment: Justus Robertson is a 76 yo male presenting to [facility] in respiratory failure. In the ED he received ASA. Dr. Gray presented to [facility] to assist in treatment of Pt's respiratory failure. After conversation with Dr. Gray and Dr. López, Pt will be admitted to [facility] for immediate dialysis with Dx of fluid overload and respiratory failure. His EKG was read at the bedside and there were no T-wave changes to indicate hyperkalemia, and no STEMI was visualized. His CXR is pending at the time of admission. Critical Care time approximately 1 hour. CXR: IMPRESSION: Chest x-ray findings are most consistent with cardiogenic pulmonary edema. Other potential etiologies could include pneumonitis, ARDS or drug toxicity. - Differential Dx/Diagnosis Differential Diagnosis/HQI/PQRI: Other - respiratory failure Provider Diagnoses: fluid overload. respiratory failure - Physician Notification/Consults Discussed Patient Care With: 1220 - Dr. Gray (ICU) - call out to Dr. 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 Gray in ED. Dr. Gray will take over treatment for this Pt after evaluation. [id number] - Dr. López (nephrology) - informed of Pt' s need for immediate dialysis. Pt will be admitted to [facility]. Instructed by Provider To: Admit As Inpatient Discharge - Discharge Plan Condition: Stable Disposition: Discharge Disposition Comment: for dialysis with fluid overload and respiratory failure. The documentation as recorded by the heidi awan Timothy accurately reflects the service I personally performed and the decisions made by , Hugo Mascorro MD.
== END 2016-10-02 03:35 | disposition expired | DRG 682 ==
LOC: ED 12:01 → ICU 13:10
PROVIDERS: ADMIT Internal Medicine Critical Care Medicine; ATTEND Hospitalist
PROC: 5A09357 Assistance with Respiratory Ventilation, Less than 24 Consecutive Hours, Continuous Positive Airway Pressure (ICD-10-PCS; principal; 2016-10-01)
DX: N17.9 Acute kidney failure, unspecified (principal); J96.01 Acute respiratory failure with hypoxia; I50.31 Acute diastolic (congestive) heart failure; E87.2 Acidosis; D68.9 Coagulation defect, unspecified; R18.8 Other ascites; M62.82 Rhabdomyolysis; N18.4 Chronic kidney disease, stage 4 (severe); K74.69 Other cirrhosis of liver; Z96.653 Presence of artificial knee joint, bilateral; E87.70 Fluid overload, unspecified; E87.5 Hyperkalemia; D69.6 Thrombocytopenia, unspecified; Z66 Do not resuscitate; Z87.891 Personal history of nicotine dependence; Z85.46 Personal history of malignant neoplasm of prostate; Z85.828 Personal history of other malignant neoplasm of skin; Z80.0 Family history of malignant neoplasm of digestive organs; Z80.7 Family history of other malignant neoplasms of lymphoid, hematopoietic and related tissues; Z82.49 Family history of ischemic heart disease and other diseases of the circulatory system; Z79.899 Other long term (current) drug therapy; Z79.52 Long term (current) use of systemic steroids
CPT/HCPCS: 36415; 36600; 71010; 80053; 82150; 82550; 82803; 83605; 83735; 83874; 83880; 84484; 85025; 85730; 86850; 86900; 86901; 87641; 93005; 93306; 94660; A9270-GY; J0610; J1940; J2270; J3430